=== PATIENT | female | born 1975 | race Caucasian/White ===

== ENCOUNTER 2024-07-01 19:46 | Observation (INO) | payer OTHER, SELFPAY ==
[2024-07-01] VITALS (14 sets, daily range): BP systolic 99–146; BP diastolic 72–84; PULSE 74–92; RESP 12–23; TEMP 36.7; O2SAT 98–100
--- NOTE | ~2024-07-01 | XR_ITS ---
XR chest 2V Ordering provider: Saturnino Plaza MD History: 48 years Female with . chest pressure . Comparison: None. FINDINGS: MEDIASTINUM: The cardiac silhouette is not enlarged. [Tripolar pacemaker is noted. LUNGS: No infiltrates, effusions or pneumothorax. OTHER: No free air under the diaphragm. IMPRESSION: No acute cardiopulmonary pathology. Reviewed, dictated and finalized at location A.
--- OUTSIDE RECORDS SUMMARY | 2024-07-01 19:48 | XMS_ITS | Clinical Summary ---
Author Organization [facility] Address [address] [place] [address] Care Team Providers Care Partner Integration Planner Name Role Phone Sha Ayala MD Primary Care Provider [phone] Allergies Active Allergy Reactions Criticality Noted Date Comments Sulfa Hives Medium 06/14/2024 Medications metroNIDAZOLE (FLAGYL) 500 mg tablet Take 1 tablet (500 mg total) by mouth 2 (two) times a day 14 tablet 06/14/2024 Active Encounters Date Type Department Care Team Description 06/30/[address] [address] Jazmin Floyd, RN 06/25/[address] [address] Jazmin Floyd, RN 06/23/[address] [address] Jazmin Floyd, RN 06/16/2024 Results Follow-Up [facility] Emergency Department [address] [place] [address] Dawn Martínez PA 06/14/2024 2:07 AM CDT - 06/14/2024 10:12 AM CDT Emergency [address] [address] Annabel Slade MD Abbeg, Andrew Paul, Cocaine abuse (HCC) (Primary Dx); Lethargy; Trichomonas vaginalis (TV) infection Discharge Disposition: Discharge to home or self care from Last 3 Months Medical History Medical History Date Comments CHF (congestive heart failure) (HCC) Social History Tobacco Use Types Packs/Day Years Used Date Smoking Tobacco: Every Day Cigarettes Tobacco Cessation:Ready to Q uit: Not Asked; Counseling Given: Not Answered Alcohol Use Standard Drinks/Week Comments Yes 0 (1 standard drink = 0.6 oz pur e alcohol) Personal Safety Answer Date Recorded Have you ever been in or are you currently in a harmful physical or emotional relationship or is someone making you feel afraid or unsafe? Denies 06/14/2024 Comments Unknown Sex and Gender Information Value Date Recorded Sex Assigned at Not on file Legal Sex Female 7:25 PM [employer] Gender Identity Not on file Sexual Orientation Not on file Obstetrics History Last Filed Vital Signs Vital Sign Reading Time Taken Comments Blood Pressure 132/92 06/14/2024 9:30 AM CDT Pulse 98 06/14/2024 9:30 AM CDT Temperature 36.5 C (97.7 F) 05/01/2022 6:15 AM [employer] Respiratory Rate 15 06/14/2024 9:30 AM CDT Oxygen Saturation 100% 06/14/2024 9:30 AM CDT Inhaled Oxygen Concentration - - Weight 59 kg (130 lb) 06/14/2024 2:27 AM CDT Height 157.5 cm (5' 2 ) 02/04/2017 8:10 PM [employer] Body Mass Index 23.78 02/04/2017 8:10 PM [employer] Plan of Treatment Health Maintenance Due Date Last Done Comments Breast Cancer Screening-Mammogram 1975 Cervical Cancer Screening 1975 Colon Cancer Screening-Colonoscopy 1975 Depression Screening 1975 Hepatitis C Screening 1975 Regular Well Visit/Exam 18-64 12/05/1993 Pneumococcal vaccine <65 (1 of 2 - PCV) 12/05/1994 Influenza Vaccine (Season Ended) 2024 12/17/19 19, 11/12/2016 DTaP/Tdap/Td Vaccine (2 - Td or Tdap) 12/04/203104/2021 Hepatitis B Screening Completed 03/07/2004 Procedures Procedure Name Priority Date/Time Associated Diagnosis Comments TROPONIN T HIGH-SENSITIVITY 6-HOUR Timed 06/14/2024 8:08 AM CDT VAGINITIS PANEL STAT 06/14/2024 7:30 AM CDT N. GONORRHOEAE/C. TRACHOMATIS AMPLIFICATION STAT 06/14/2024 7:30 AM CDT TROPONIN T HIGH-SENSITIVITY 4-HR Timed 06/14/2024 5:55 AM CDT URINALYSIS, MICROSCOPIC ONLY STAT 06/14/2024 4:47 AM CDT DRUGS OF ABUSE SCREEN, URINE WITHOUT CONFIRMATION STAT 06/14/2024 4:47 AM CDT URINE CULTURE STAT 06/14/2024 4:47 AM CDT URINALYSIS AND REFLEX TO MICROSCOPIC AND CULTURE STAT 06/14/2024 4:47 AM CDT TROPONIN T HIGH-SENSITIVITY 2-HOUR Timed 06/14/2024 4:17 AM CDT XR CHEST 1 VIEW ED 06/14/2024 2:37 AM CDT EGFR STAT 06/14/2024 2:32 AM CDT DIFFERENTIAL AUTO STAT 06/14/2024 2:3 2 AM CDT TROPONIN T HIGH-SENSITIVITY SERIES (BASELINE, 2HR, 4HR, 6HR) STAT 06/14/2024 2:32 AM CDT APTT STAT 06/14/2024 2:32 AM CDT PROTIME-INR STAT 06/14/2024 2:32 AM CDT PRO B-TYPE NATRIURETIC PEPTIDE STAT 06/14/2024 2:32 AM CDT ETHANOL STAT 06/14/2024 2:32 AM CDT COMPREHENSIVE METABOLIC PANEL STAT 06/14/2024 2:32 AM CDT CBC WITH AUTO DIFFERENTIAL STAT 06/14/2024 2:32 AM CDT ECG 12-LEAD STAT 06/14/2024 2:24 AM CDT from Last 3 Months Results * Troponin T high-sensitivity 6-hour (06/14/2024 8:08 AM CDT) Trop T hs 11 <=14 ng/L Comment: Interpretive Data For further hscTnT resources including the diagnostic algorithm and an aid in interpretation, copy and paste this link: https://nrl.testcatalog.org/show/hsTrop Current Interpretive Data last revised 2020. Trop T hs delta -1 ng/L [facility] Trop T hs interp Insignificant [facility] Blood 06/14/2024 8:08 AM CDT 06/14/2024 8:10 AM CDT us Annabel Slade MD LAB BLOOD ORDERABLES F inal Result [facility] [address] [facility] Department [place] [address] * N. gonorrhoeae/C. trachomatis Amplification Vaginal (06/14/2024 7:30 AM CDT) C. trachomatis Not Detected Not Detected N. gonorrhoeae Not Detected Not Detected [facility] Comment: Interpretive Data This assay detects Chlamydia trachomatis and Neisseria gonorrhoeae by nucleic acid amplification testing (NAAT). This assay has been cleared by the [place] Food and Drug administration. The performance characteristics of this test have been verified by the [facility]. The performance characteristics of this test have not been evaluated in individuals less than 14 years of age. Current Interpretive Data last revised 2023. Vaginal (None) 06/14/2024 7: 30 AM CDT 06/14/2024 7:39 AM CDT Franklyn Bains DO LAB MICROBIOLOGY - GENERAL ORDERABLES Final Result [facility] [address] [facility] Department [place] [address] * (ABNORMAL) Vaginitis panel Vaginal (06/14/2024 7:30 AM CDT) Bacterial Vaginosis Detected(A) Not Detected Comment:The BV organism targ ets of this test can be commensal in women; results should be considered in conjunction with clinical presentation to determine the disease status. Rama group Not Detected Not Detected [facility] Rama glabrata/ krusei Not Detected Not Detected [facility] Trichomonas DNA Detected(A) Not Detected [facility] Vaginal 06/14/2024 7:30 AM CDT 06/14/2024 7:39 AM CDT Narrative [facility] - 06/14/2024 8:42 AM CDT The Cepheid Xpert Xpress MVP test detects DNA targets from anaerobic bacteria associated with bacterial vaginosis, Rama species associated with vulvovaginal candidiasis, and Trichomonas vaginalis by nucleic acid amplification testing (NAAT). Results should be interpreted in conjunction with other clinical data. This test cannot be used to assess therapeutic success or failure because target nucleic acids may persist following antimicrobial therapy. This test has been cleared by the [place] Food and Drug Administration to aid in the diagnosis of vaginal infections in symptomatic women ages 14 and older. The performance characteristics of this test have been verified by the [facility]. The Cepheid Xpert Xpress MVP test detects DNA targets from anaerobic bacteria associated with bacterial vaginosis, Rama species associated with vulvovaginal candidiasis, and Trichomonas vaginalis by nucleic acid amplification testing (NAAT). Results should be interpreted in conjunction with other clinical data. This test cannot be used to assess therapeutic success or failure because target nucleic acids may persist following antimicrobial therapy. This test has been cleared by the [place] Food and Drug Administration to aid in the diagnosis of vaginal infections in symptomatic women ages 14 and older. The performance characteristics of this test have been verified by the [facility]. Franklyn Bains DO LAB MICROBIOLOGY - GENERAL ORDERABLES Final Result Performing Organization Address [facility] Co de Phone Number [address] [address] * Troponin T high-sensitivity 4-hour (06/14/2024 5:55 AM CDT) Trop T hs 11 <=14 ng/L Comment: Interpretive Data For further hscTnT resources including the diagnostic algorithm and an aid in interpretation, copy and paste this link: https://nrl.testcatalog.org/show/hsTrop Current Interpretive Data last revised 2020. Trop T hs delta -1 ng/L [facility] Trop T hs interp Insignificant [facility] Blood 06/14/2024 5:55 AM CDT 06/14/2024 5:57 AM CDT Annabel Slade MD LAB BLOOD ORDERABLES F inal Result Performing Organization Address [facility] de Phone Number [address] [address] * (ABNORMAL) Urinalysis reflex to microscopic and culture Urine (06/14/2024 4:47 AM CDT) Color, ur Other(A) Yellow Clarity, ur Turbid(A) Clear [facility] Specific gravity, ur 1.015 1.003 - 1.030 [facility] pH, urine 6.5 [facility] Comment: Interpretive Data U rine pH is affected by diet, medications, systemic acid-base disturbances, and renal tubular function. pH may affect urinary stone formation. For example, urine pH below 6.0 may help reduce the tendency for calcium phosphate stones and pH greater than 6.0 may reduce the tendency for uric acid stone formation. Source: [facility] [employer] Current Interpretive Data was last revised on 2017 Protein, ur ql Negative Negative [facility] Glucose, ur ql Negative Negative [facility] Ketones, ur Negative Negative [facility] Bilirubin, ur Negative Negative [facility] Blood, ur 1+(A) Negative [facility] Urobilinogen, ur <2.0 <2.0 mg/dL [facility] Nitrite, ur Positive(A) Negative [facility] Leukocyte esterase, ur 4+(A) Negative [facility] UA reflex comment Reflex to microscopic UA will be performed. [facility] Urine 06/14/2024 4:47 AM CDT 06/14/2024 5:49 AM CDT Annabel Slade MD LAB MICROBIOLOGY - GEN ERAL ORDERABLES Edited Result - Final [facility] [address] [facility] Department [place] [address] * (ABNORMAL) Drugs of Abuse Screen, Urine without Confirmation (06/14/2024 4:47 AM CDT) Amphetamine, ur Not Detected [facility] 500ng/mL Comment: Interpretive Data - Amphetamines: Samples containing greater than 500 ng/mL d-methamphetamine or other cross-reacting amphetamine compounds are reported as positive. Amphetamine immunoassays are subject to significant false positive rates due to cross-reactivity of non-amphetamine drugs. Confirmatory testing required for definitive results. Current Interpretive Data was last reviewed 2022. Barbiturates, ur Not Detected CutOff 200ng/mL [facility] Comment: Interpretive Data - Barbiturates: Samples containing greater than 200 ng/mL secobarbital or other cross-reacting barbiturate compounds are reported as positive. False positive and false negative results are possible. Confirmatory testing required for definitive results. Current Interpretive Data was last reviewed 2022. Benzodiazepines, ur Not Detected CutOff 100ng/mL [facility] Comment: Interpretive Data - Benzodiazepines: Samples containing greater than 100 ng/mL nordiazepam or other cross-reacting compounds are reported as positive. False positive and false negative results are possible. Confirmatory testing required for definitive results. Current Interpretive Data was last reviewed 2022. Cannabinoids, ur Not Detected CutOff 50 ng/mL [facility] Comment: Interpretive Data - Cannabinoids: Samples containing greater than 50 ng/mL delta-9 THC -COOH or other cross- reacting compounds are reported as positive. False positive and false negative results are possible. Confirmatory testing required for definitive results. Current Interpretive Data was last reviewed 2022. Cocaine, ur Screen Positive, presumptive (A) CutOff 150ng/mL [facility] Comment: Interpretive Data - Cocaine: Samples containing greater than 150 ng/mL benzoylecgonine or other cross- reacting compounds are reported as positive. False positive and false negative results are possible. Confirmatory testing required for definitive results. Current Interpretive Data was last reviewed 2022. Fentanyl, Ur Not Detected CutOff 5 ng/mL [facility] Comment: Interpretive Data - Fentanyl: Samples containing greater than 5 ng/mL norfentanyl, fentanyl, or other cross-reacting fentanyl compounds are reported as positive. False positive and false negative results are possible. Confirmatory testing required for definitive results. Current Interpretive Data was last reviewed 2023. Methadone, ur Not Detected CutOff 300ng/mL [facility] Comment: Interpretive Data - Methadone: Samples containing greater than 300 ng/mL d,l-methadone or other cross-reacting compounds are reported as positive. False positive and false negative results are possible. Confirmatory testing required for definitive results. Current Interpretive Data was last reviewed 2022. Opiates, ur Not Detected CutOff 300ng/mL [facility] Comment: Interpretive Data - Opiates: Samples containing greater than 300 ng/mL morphine or other cross-reacting compounds are reported as positive. False positive and false negative results are possible. Confirmatory testing required for definitive results. Current Interpretive Data was last reviewed 2022. Oxycodone, ur Not Detected CutOff 100ng/mL [facility] Comment: Interpretive Data - Oxycodone: Samples containing greater than 100 ng/mL oxycodone or other cross-reacting compounds are reported as positive. False positive and false negative results are possible. Confirmatory testing required for definitive results. Current Interpretive Data was last reviewed 2022. Phencyclidine, ur Not Detected CutOff 25 ng/mL [facility] Comment: Interpretive Data - Phencyclidine: Samples containing greater than 25 ng/mL phencyclidine or other cross-reacting compounds are reported as positive. False positive and false negative results are possible. Confirmatory testing required for definitive results. Current Interpretive Data was last reviewed 2022. Urine Creatinine 74 mg/dL [facility] Comment: Interpretive Data Urine Creatinine: < 10 mg/dL is extremely dilute = or > 10 but < 20 mg/dL is dilute = or > 20 mg/dL is normal Current Interpretive Data was last revised on 2017. Urine 06/14/2024 4:47 AM CDT 06/14/2024 4:59 AM CDT Narrative [facility] - 06/14/2024 5:50 AM CDT Drug of Abuse screening is performed by immunoassay for medical purposes only. This is not to be used for Pain Management purposes. Annabel Slade MD LAB URINE ORDERABLES F inal Result Performing Organization Address [facility] de Phone Number [address] [place] [address] * (ABNORMAL) Urinalysis, microscopic only (06/14/2024 4:47 AM CDT) WBC, ur >50(A) 0 - 5 /HPF RBC, ur >50(A) 0 - 2 /HPF [facility] Epithelial cells, squamous, ur 6-10(A) 0 - 5 /HPF [facility] Comment:Suggestive of contam ination. Consider recollection by clean catch. Mucous, ur Present(A) [facility] Culture Reflex Comment Reflex to urine culture will be performed. [facility] Urine 06/14/2024 4:47 AM CDT 06/14/2024 5:49 AM CDT Annabel Slade MD LAB URINE ORDERABLES F inal Result Performing Organization Address [facility] de Phone Number [address] [place] [address] * (ABNORMAL) Urine culture Urine (06/14/2024 4:47 AM CDT) Report Final Report: Greater than or equal to 100,000 colonies/mL of Escherichia coli (.) Comment:Testing performed by : [facility], [address] [facility], [place]., [address] Organism ESCHERICHIA COLI [facility] Urine 06/14/2024 4:47 AM CDT 06/14/2024 1:49 PM CDT Narrative [facility] - 06/16/2024 8:37 AM CDT Urine culture reflexed based upon urinalysis results. Testing performed by [facility] ([phone]) Organism Antibiotic Method Susceptibility Escherichia coli Ampicillin INTERPRETATION Resistant Escherichia coli Cefazolin INTERPRETATION Susceptible Escherichia coli Nitrofurantoin INTERPRETATION Susceptible Escherichia coli Gentamicin INTERPRETATION Susceptible Escherichia coli Trimethoprim with Sulfamethoxazole IN TERPRETATION Susceptible Escherichia coli Meropenem INTERPRETATION Susceptible Escherichia coli Cefepime INTERPRETATION Susceptible Escherichia coli Ciprofloxacin INTERPRETATION Susceptible Escherichia coli Ceftazidime INTERPRETATION Susceptible Escherichia coli Ceftriaxone INTERPRETATION Susceptible Escherichia coli Piperacillin/Tazobactam INTERPRETATIO N Susceptible Escherichia coli Cephalexin INTERPRETATION Susceptible Escherichia coli Cefuroxime-axetil INTERPRETATION Susceptible Escherichia coli Cefdinir INTERPRETATION Susceptible us Annabel Slade MD LAB MICROBIOLOGY - GEN ERAL ORDERABLES Final Result Performing Organization Address [facility] de Phone Number [address] [place] [address] * Troponin T high-sensitivity 2-hour (06/14/2024 4:17 AM CDT) Trop T hs See Comment <=14 Comment: Credited due to hemolysis; if immediate recollection is needed, enter an order for a standalone troponin. Do not reorder the troponin series. Hemolyzed Specimen- Called to [id number] Interpretive Data For further hscTnT resources including the diagnostic algorithm and an aid in interpretation, copy and paste this link: https://nrl.testcatalog.org/show/hsTrop Current Interpretive Data last revised 2020. Trop T hs interp See Comment [facility] Comment:Hemolyzed Specimen- Called to [id number] Blood 06/14/2024 4:17 AM CDT 06/14/2024 4:19 AM CDT Annabel Slade MD LAB BLOOD ORDERABLES F inal Result Performing Organization Address [facility] Co de Phone Number [address] Department [place] [address] * XR Chest 1 Vw Portable (06/14/2024 2:37 AM CDT) Anatomical Region Laterality Modality Body, Chest N/A Computed Radiogr aphy 06/14/2024 2:47 AM CDT Narrative 06/14/2024 2:51 AM CDT EXAM DESCRIPTION: XR CHEST 1 VIEW REASON FOR STUDY: Other (type) Nurse brought her in because because she could not stay awake and her pulse felt irregular. EMS states they could palp HR 60's but had a hard time picking it up on the monitor. Patient is on her 2nd pacemaker and was replaced a couple months ago. TECHNIQUE: Portable upright AP view of the chest. COMPARISON: None FINDINGS: LUNGS AND PLEURA: No focal opacity, large effusion, or pneumothorax identified. HEART/MEDIASTINUM: Trachea midline. Cardiac silhouette normal in size. Mediastinal contours appear normal. BONES: Unremarkable. CHEST WALL: Unremarkable. UPPER ABDOMEN: Unremarkable. IMPRESSION: No acute abnormality identified. THIS IS AN ELECTRONICALLY VERIFIED FINAL REPORT 06/14/2024 2:51 AM - Electronically signed by Kaushal Smith M.D. AR T: Report ID: [id number] Reading Location: [id number] Procedure Note Kaushal Smith MD - 06/14/2024 EXAM DESCRIPTION: XR CHEST 1 VIEW REASON FOR STUDY: Other (type) Nurse brought her in because because she could not stay awake and herpulse felt irregular. EMS states they could palp HR 60's but had a hard timepicking it up on the monitor. Patient is on her 2nd pacemaker and was replaced a couple months ago. TECHNIQUE: Portable upright AP view of the chest. COMPARISON: None FINDINGS: LUNGS AND PLEURA: No focal opacity, large effusion, orpneumothorax identified. HEART/MEDIASTINUM: Trachea midline. Cardiac silhouette normal in size. Mediastinal contours appear normal. BONES: Unremarkable. CHEST WALL: Unremarkable. UPPER ABDOMEN: Unremarkable. IMPRESSION: No acute abnormality identified. THIS IS AN ELECTRONICALLY VERIFIED FINAL REPORT 06/14/2024 2:51 AM - Electronically signed by Kaushal Smith M.D. AR T: Report ID: [id number] Reading Location: [id number] us Annabel Slade MD IMG XR PROCEDURES Rosalina l Result * Troponin T high-sensitivity series (baseline, 2hr, 4hr, 6hr) (06/14/2024 2:32 AM CDT) Trop T hs 12 <=14 ng/L Comment: Interpretive Data For further hscTnT resources including the diagnostic algorithm and an aid in interpretation, copy and paste this link: https://nrl.testcatalog.org/show/hsTrop Current Interpretive Data last revised 2020. Blood 06/14/2024 2:32 AM CDT 06/14/2024 2:35 AM CDT us Annabel Slade MD LAB BLOOD ORDERABLES F inal Result [id number] [id number] [facility] [place] [address] * eGFR (06/14/2024 2:32 AM CDT) eGFR 73 >=60 mL/min/1. 73 m2 Comment: Interpretive Data Reference Interval Normal >/= 90 mL/min/1.73m2 Mildly decreased* 60 - 89 mL/min/1.73m2 Mildly to moderately decreased 45 - 59 mL/min/1.73m2 Moderately to severely decreased 30 - 44 mL/min/1.73m2 Severely decreased 15 - 29 mL/min/1.73m2 Kidney Failure < 15 mL/min/1.73m2 *Relative to young adult level Estimated glomerular filtration rate is determined by the 2020 CKD-EPI equation recommended by the National Kidney Foundation (A Unifying Approach to GFR Estimation: Recommendations of the NKF-ASK Task Force on Reassessing the Inclusion of Race in Diagnosing Kidney Disease, JASN 202). The CKD-EPI equation should not be used for patients with unstable renal function and has not been validated in children and those over 70. Current interpretive data was last reviewed 2021. Blood 06/14/2024 2:32 AM CDT 06/14/2024 2:35 AM CDT Annabel Slade MD LAB BLOOD ORDERABLES F inal Result [facility] [address] [facility] [place] [address] * (ABNORMAL) Differential, auto (06/14/2024 2:32 AM CDT) Pathologist [facility] Neutrophil abs 4.84 1.50 - 6.50 K/cumm Imm gran abs 0.02 0.00 - 0.10 K/cumm [facility] Lymphocyte abs 1.89 0.80 - 3.30 K/cumm [facility] Monocyte abs 0.82(H) 0.20 - 0.80 K/cumm [facility] Eosinophil abs 0.24 0.00 - 0.50 K/cumm [facility] Basophil abs 0.09 0.00 - 0.10 K/cumm [facility] Neutrophil pct 61.3 % [facility] Comment: Interpretive Data Percent cell count reference ranges are not reported, since discordance with absolute values may lead to misinterpretation of CBC data. Current Interpretive Data was last revised on 2017. Imm gran pct 0.3 % [facility] Comment: Interpretive Data Percent cell count reference ranges are not reported, since discordance with absolute values may lead to misinterpretation of CBC data. Current Interpretive Data was last revised on 2017. Lymphocyte pct 23.9 % [facility] Comment: Interpretive Data Percent cell count reference ranges are not reported, since discordance with absolute values may lead to misinterpretation of CBC data. Current Interpretive Data was last revised on 2017. Monocyte pct 10.4 % [facility] Comment: Interpretive Data Percent cell count reference ranges are not reported, since discordance with absolute values may lead to misinterpretation of CBC data. Current Interpretive Data was last revised on 2017. Eosinophil pct 3.0 % [facility] Comment: Interpretive Data Percent cell count reference ranges are not reported, since discordance with absolute values may lead to misinterpretation of CBC data. Current Interpretive Data was last revised on 2017. Basophil pct 1.1 % [facility] Comment: Interpretive Data Percent cell count reference ranges are not reported, since discordance with absolute values may lead to misinterpretation of CBC data. Current Interpretive Data was last revised on 2017. Blood 06/14/2024 2:32 AM CDT 06/14/2024 2:36 AM CDT us Annabel Slade MD LAB BLOOD ORDERABLES F inal Result [facility] [address] [facility] [place] [address] * (ABNORMAL) Pro B-type natriuretic peptide (06/14/2024 2:32 AM CDT) NT-proBNP 1,954(H) <=300 pg/mL Comment: Interpretive Comments: A. Dyspnea in Acute Care Setting All Ages: < 300 pg/ml, acute heart failure unlikely. < 50 yrs: 300 - 450 pg/ml, further investigation warranted. > 450 pg/ml, acute heart failure likely. 50 - 74 yrs: 300 - 900 pg/ml, further investigation warranted. > 900 pg/ml, acute heart failure likely . > or = 75 yrs: 450 - 1800 pg/ml, further investigation warranted. > 1800 pg/ml, acute heart failure likely. B. Non-acute Setting < 75 yrs < 125 pg/ml, rules out heart failure. > or = 125 pg/ml, further investigation warranted. > or = 75 yrs < 450 pg/ml, rules out heart failure. > or = 450 pg/ml, further investigation warranted. - Knowledge of each individual patient's NT-proBNP range may be more useful than using similar cut-points for every patient. Please note that marked elevations in NT-proBNP levels may be observed in state other than Left Ventricular Congestive Failure, including: acute coronary syndromes, right heart strain/failure (including pulmonary embolism and cor pulmonale), critical illness, renal failure, as well as advanced age. - References: 1. Sandro ROJAS et.al. Eur Heart J. 2006:27:330-337. 2. Yordan WATKINS, Tomasa COSME. J. AM Liat Cardiol: Cardiovasc Imag. 2009;2: 216- 225. Interpretive Data Last Revised Date: 2017. Blood 06/14/2024 2:32 AM CDT 06/14/2024 2:35 AM CDT us Annabel Slade MD LAB BLOOD ORDERABLES F inal Result Performing Organization Address City/[facility] [place] Co de Phone Number [facility] [address] [place] [address] * (ABNORMAL) CBC with auto differential (06/14/2024 2:32 AM CDT) [facility] WBC 7.90 3.80 - 9.90 K/cumm Hgb 12.9 11.9 - 15.5 g/dL [facility] Hct 41.2 35.6 - 45.5 % [facility] Plt 323 150 - 400 K/cumm [facility] MPV 8.9(L) 9.1 - 12.3 fL [facility] RBC 4.48 3.90 - 5.20 M/cumm [facility] MCV 92.0 81.3 - 96.4 fL [facility] MCH 28.8 27.1 - 33.3 pg [facility] MCHC 31.3(L) 32.3 - 35.7 g/dL [facility] RDW CV 13.4 11.1 - 14.9 % [facility] RDW SD 45.0 35.7 - 48.1 fL [facility] NRBC abs 0.00 0.00 - 0.01 K/cumm [facility] Blood 06/14/2024 2:32 AM CDT 06/14/2024 2:36 AM CDT us Annabel Slade MD LAB BLOOD ORDERABLES F inal Result Performing Organization Address City/[facility]/ZIP Co de Phone Number [facility] [address] [place] [address] * aPTT (06/14/2024 2:32 AM CDT) aPTT 26 22 - 37 sec Comment: Interpretive data aPTT test has not been evaluated for monitoring heparin therapy. The anti-Xa is the preferred test. Current interpretive data was last revised on 2019. Blood 06/14/2024 2:32 AM CDT 06/14/2024 2:36 AM CDT Annabel Slade MD LAB BLOOD ORDERABLES F inal Result Performing Organization Address [facility] de Phone Number [address] [place] [address] * (ABNORMAL) Protime-INR (06/14/2024 2:32 AM CDT) Pathologist [facility] [place] PT 16.2(H) 12.0 - 14.6 sec Comment:Ref Range High INR 1.3(H) 0.9 - 1.2 [facility] Comment: Ref Range High Interpretive data Oral anticoagulant therapeutic ranges: Venous thromboembolism prophylaxis or treatment: 2.0-3.0 CARDIOLOGY Standard range: 2.0-3.0 High-intensity range: 2.5-3.5 Refer to indication-specific guidelines for appropriate target ranges for prosthetic heart valve replacement. Current interpretive data was last revised on 2019. Blood 06/14/2024 2:32 AM CDT 06/14/2024 2:36 AM CDT Annabel Slade MD LAB BLOOD ORDERABLES F inal Result Performing Organization Address [facility] de Phone Number [address]ERR[address] [place] [address] * Ethanol (06/14/2024 2:32 AM CDT) Pathologist [facility] [place] Ethanol <10 <=10 mg/dL Comment: Interpretive Data Legal limit of intoxication > or = 80 mg/dL Levels > or = 400 mg/dL are potentially TOXIC. Current interpretive data was last revised on 2018. Blood 06/14/2024 2:32 AM CDT 06/14/2024 2:35 AM CDT Annabel Slade MD LAB BLOOD ORDERABLES F inal Result [facility] [id number] [facility] [facility] [place] [address] * (ABNORMAL) Comprehensive metabolic panel (06/14/2024 2:32 AM CDT) Pathologist [facility] [place] Sodium 143 135 - 145 mmol/L Potassium, pl 3.4 3.3 - 4.9 mmol/L [facility] Chloride 109 97 - 110 mmol/L [facility] CO2 24 22 - 32 mmol/L [facility] Anion gap 10 2 - 15 mmol/L [facility] BUN 17 6 - 25 mg/dL [facility] Creatinine 0.96 0.60 - 1.10 mg/dL [facility] Glucose 86 70 - 199 mg/dL [facility] Comment: Interpretive Data Fasting glucose >/= 126 mg/dl is diagnostic for diabetes. Fasting is defined as no caloric intake for at least 8 hours. Fasting glucose between 100 mg/dl to 125 mg/dl is diagnostic of prediabetes. In a patient with classic symptoms of hyperglycemia or hyperglycemic crisis, a random glucose >/= 200 mg/dl is diagnostic for diabetes. In the absence of unequivocal hyperglycemia, results should be confirmed by repeat testing. The classification and Diagnosis of Diabetes Diabetes Care 202; 46: S19-S40. Current interpretive data was last revised 2022. Calcium 9.2 8.5 - 10.3 mg/dL [facility] Bilirubin, total 0.2 0.1 - 1.2 mg/dL [facility] Protein, pl 6.4(L) 6.5 - 8.5 g/dL [facility] Albumin 3.7 3.5 - 5.0 g/dL [facility] Alk phos 65 40 - 130 Units/L [facility] ALT 15 7 - 45 Units/L [facility] AST 21 10 - 45 Units/L [facility] Blood 06/14/2024 2:32 AM CDT 06/14/2024 2:35 AM CDT Annabel Slade MD LAB BLOOD ORDERABLES F inal Result [facility] [place] [address] * ECG 12 lead (06/14/2024 2:24 AM CDT) Ventricular Rate EKG/Min 87 BPM [facility] Atrial Rate 87 BPM [facility] NM-Interval (MSEC) 164 ms [facility] QRS-Interval (MSEC) 146 ms [facility] QT-Interval (MSEC) 452 ms [facility] QTc 543 ms [facility] P [place] 64 degrees [facility] R [place] -24 degrees [facility] T [place] 82 degrees [facility] Diagnosis Atrial-sensed ventricular-p aced rhythm Abnormal ECG When compared with ECG of 01-MAY-2022 06:16, Vent. rate has increased BY 17 BPM Confirmed by RICHARD GIFFORD M.D. 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
--- OUTSIDE RECORDS SUMMARY | 2024-07-01 19:48 | XMS_ITS | Data Portability ---
Author Organization ROSIBEL Hilaria ALARCON Address [address] [place] [address] Assessment Encounter Date Assessment Date Assessment LastModified by Organization Details LastModified Time 05/02/2017 05/02/2017 41 y.o. 10wks per Hever. U/S. History of endometriosis and 2 SAB all first trimester. Positive drug screen for opiates, slight anemia. Positive FHT's per doppler at 160's with no audible decels. panel today and pt. discharged back to [facility]. Not available 05/02/2017 12:48:36 Plan of Treatment Reminders Order Date Submit Date Provider Last Modified By Organization Details Last Modified Time Details Appointments None recorded. Lab cf (cystic fibrosis) profile 2017 018 [facility], [address] [place] [address], [address], [place], [address], 8 18:12:44 CBC w/ auto diff 2017 018 [facility], [address] [place] [address], [address], [place], [address], 8 16:51:56 HIV (1+2) Ab screen, serum 2017 018 [facility], [address] [place] [address], [address], [place], [address], 8 07:14:18 HBsAg (hepatitis B surface Ag), confirmatio n, serum 2017 018 [email or web address] [facility], [address], [address], [place], [address], 8 11:24:41 rubella igg Ab screen, serum 2017 018 [facility], [address], [address], [place], [address], 8 15:15:45 varicella-z darnell igg Ab screen, serum 2017 018 [facility], [address], [address], [place], [address], 8 15:15:50 drug screen, 5 drugs, urine 2017 018 [facility], [address], [address], [place], [address], 8 15:31:36 culture, urine 2017 018 [facility], [address], [address], [place], [address], 8 20:11:12 urinalysis, complete 2017 018 [email or web address] [facility], [address] [place], [place] [address], [address], [place], [address], 8 11:24:41 hemoglobin S (hbs), presence, blood 2017 018 [facility], [address] [facility] [address], [address], [place], [address], 8 13:11:36 abo group + rh type, blood 2017 018 [email or web address] [facility], [address] [place], [place] [address], [address], [place], [address], 8 11:24:41 RPR (rapid plasma reagin), quantitativ e, serum 2017 018 [email or web address] [facility], [address], [address], [place], [address], 8 11:24:41 CT + NG + TV, DNA, urine/swab 2017 018 [facility] [address], [place], [address], 8 21:08:38 test, urine 2017 018 In-Office Order, Internal Use Only DO Not Attach Compendium DO Not Attach Compendium, Do Not Delete/merge, [id number] 8 11:05:53 Referral None recorded. Procedures None recorded. Surgeries None recorded. Imaging None recorded. Medication Orders None recorded. Patient Targets Encounter Date Encounter Id Patient Goals Patient Target Last Modified By Organization Details Last Modified Time Deliver healthy non addicted term fetus Not available 05/02/2017 12:49:02 Patient Instructions Encounter Date Encounter Id Patient Instructions Last Modified By Organization Details Last Modified Time 05/02/2017 [id number] Pt. instructed t o continue care after release Not available 05/02/2017 12:49:25 Reason for Referral None Reported. Results Created Date Observation Date Name Description Value Unit Range Abnormal Flag Note LastModifiedBy Organization Detail LastModifiedTime 05/03/19 18 05/02/2017 pregn saeid test, urine HCG positi ve Not Available In-Office Order Internal Use Only DO Not Attach Compendium DO Not Attach Compendium, Do Not Delete/merge, [id number] 05/02/2017 10:23:12 05/03/19 18 05/02/2017 drug scree n, urine urine phencylclind in NEGATI VE negati ve Not Available [facility] ([facility]) [address], [place], [address], 05/02/2017 15:31:36 05/03/19 18 05/02/2017 drug scree n, urine urine cannabinoids NEGATI VE negati ve Not Available [facility] (Lab) [address] [place], [address], 05/02/2017 15:31:36 05/03/19 18 05/02/2017 drug scree n, urine urine amphetamines NEGATI VE negati ve Not Available [facility] (Lab) [address] [place], [address], 05/02/2017 15:31:36 05/03/19 18 05/02/2017 drug scree n, urine urine cocaine NEGATI VE negati ve Not Available [facility] (Lab) [address] [place], [address], 05/02/2017 15:31:36 05/03/19 18 05/02/2017 drug scree n, urine urine opiates NEGATI VE negati ve Not Available [facility] (Lab) [address] [facility], [place], [address], 05/02/2017 15:31:36 05/03/19 18 05/02/2017 drug scree n, urine urine barbiturates NEGATI VE negati ve Not Available [facility] (Lab) [address] [place], [address], 05/02/2017 15:31:36 05/03/19 18 05/02/2017 drug scree n, urine urine benzo diazepin NEGATI VE negati ve Not Available [facility] (Lab) [address] [place], [address], 05/02/2017 15:31:36 05/03/19 18 05/02/2017 drug scree n, urine udrscom This test provi cortney only a scree sujatha steven tical test resul t. A more speci fic alter avelino chemi antoine metho d must be order ed to obtai n a confi rmed steven tical resul t. Not Available [facility] (Lab) [address] [place], [address], 05/02/2017 15:31:36 05/03/19 18 05/02/2017 abo group + rh type, blood ABO/Rh typing O Rh Positi ve Not Available [facility] (Lab) [address], [place], [address], 05/02/2017 15:43:26 05/03/19 18 05/02/2017 abo group + rh type, blood id-mts antbdy screen NEGATI VE Not Available [facility] (Lab) [address] [facility], [place], [address], 05/02/2017 15:43:26 05/03/19 18 05/02/2017 urina lysis , compl ete urhead1 URINAL YSIS, COMPLE TE Ur inalys is Gross Exam Not Available [facility] (Lab) [address] [facility], [place], [address], 05/02/2017 16:17:01 05/03/19 18 05/02/2017 urina lysis , compl ete specific gravity 1.010 1.001- 1.035 Not Available [facility] (Lab) [address] [facility], [place], [address], 05/02/2017 16:17:01 05/03/19 18 05/02/2017 urina lysis , compl ete pH 7.0 5.0-7. 0 Not Available [facility] (Lab) [address], [place], [address], 05/02/2017 16:17:01 05/03/19 18 05/02/2017 urina lysis , compl ete urine-color LT. YELLOW yellow abnormal Not Available [facility] (Lab) [address], [place], [address], 05/02/2017 16:17:01 05/03/19 18 05/02/2017 urina lysis , compl ete appearance CLEAR clear Not Available [facility] (Lab) [address] [place], [address], 05/02/2017 16:17:05/03/19 18 05/02/2017 urina lysis , compl ete WBC esterase SMALL uL negati ve abnormal Not Available [facility] (Lab) [address], [place], [address], 05/02/2017 16:17:01 05/03/19 18 05/02/2017 urina lysis , compl ete protein NEGATI VE mg/dL negati ve Not Available [facility] (Lab) [address], [place], [address], 05/02/2017 16:17:05/03/19 18 05/02/2017 urina lysis , compl ete glucose NEGATI VE mg/dL negati ve Not Available [facility] (Lab) [address], [place], [address], 05/02/2017 16:17:01 05/03/19 18 05/02/2017 urina lysis , compl ete ketones NEGATI VE mg/dL negati ve Not Available [facility] (Lab) [address], [place], [address], 05/02/2017 16:17:01 05/03/19 18 05/02/2017 urina lysis , compl ete occult blood NEGATI VE julius/u L negati ve Not Available [facility] (Lab) [address], [place], [address], 05/02/2017 16:17:01 05/03/19 18 05/02/2017 urina lysis , compl ete bilirubin NEGATI VE negati ve Not Available [facility] (Lab) [address], [place], [address], 05/02/2017 16:17:05/03/19 18 05/02/2017 urina lysis , compl ete urobilinogen 0.2 eu/dL <=1.0 Not Available [facility] (Lab) [address] [place], [address], 05/02/2017 16:17:01 05/03/19 18 05/02/2017 urina lysis , compl ete nitrite, urine NEGATI VE negati ve Not Available [facility] ([facility]) [address], [place], [address], 05/02/2017 16:17:01 05/03/19 18 05/02/2017 urina lysis , compl ete urhead2 Mi crosco pic Examin ation* Not Available [facility] (Lab) [address], [place], [address], 05/02/2017 16:17:01 05/03/19 18 05/02/2017 urina lysis , compl ete WBC 3-5 hpf Not Available [facility] ([facility]) [address], [place], [address], 05/02/2017 16:17:01 05/03/19 18 05/02/2017 urina lysis , compl ete RBC NONE SEEN Not Available [facility] ([facility]) [address], [place], [address], 05/02/2017 16:17:01 05/03/19 18 05/02/2017 urina lysis , compl ete epithelial cells 1+ epth/ hpf Not Available [facility] (Lab) [address], [place], [address], 05/02/2017 16:17:01 05/03/19 18 05/02/2017 urina lysis , compl ete bacteria 1+ Not Available [facility] (Lab) [address], [place], [address], 05/02/2017 16:17:01 05/03/19 18 05/02/2017 urina lysis , compl ete urine amorphous 4+ uramo r/hpf Not Available [facility] (Lab) [address], [place], [address], 05/02/2017 16:17:01 05/03/19 18 05/02/2017 CBC w/ auto diff WBC 10.9 K/uL 3.4-10 .8 high Not Available [facility] (Lab) [address] [place], [address], 05/02/2017 16:51:56 05/03/19 18 05/02/2017 CBC w/ auto diff red blood count 4.6 M/uL 4.2-5. 4 Not Available [facility] (Lab) [address] [place], [address], 05/02/2017 16:51:56 05/03/19 18 05/02/2017 CBC w/ auto diff hemoglobin 13.3 g/dL 11.5-[address] [facility] (Lab) [address] [place], [address], 05/02/2017 16:51:56 05/03/19 18 05/02/2017 CBC w/ auto diff hematocrit 39.7 % 36.0-4 8.0 Not Available [facility] (Lab) [address] [place], [address], 05/02/2017 16:51:56 05/03/19 18 05/02/2017 CBC w/ auto diff MCV 87 fL 80-[address] [facility] (Lab) [address] [place], [address], 05/02/2017 16:51:56 05/03/19 18 05/02/2017 CBC w/ auto diff MCH 29 pg 27-32 Not Available [facility] (Lab) [address] [place], [address], 05/02/2017 16:51:56 05/03/19 18 05/02/2017 CBC w/ auto diff MCHC 34 g/dL 32-36 Not Available [facility] (Lab) [address] [place], [address], 05/02/2017 16:51:56 05/03/19 18 05/02/2017 CBC w/ auto diff platelets 415 K/uL 155-37 9 high Not Available [facility] (Lab) [address] [facility], [place], [address], 05/02/2017 16:51:56 05/03/19 18 05/02/2017 CBC w/ auto diff RDW 16.0 % 11.5-1 4.5 high Not Available [facility] (Lab) [address] [place], [address], 05/02/2017 16:51:56 05/03/19 18 05/02/2017 CBC w/ auto diff MPV 9.5 fL 8.9-12 .7 Not Available [facility] (Lab) [address] [place], [address], 05/02/2017 16:51:56 05/03/19 18 05/02/2017 CBC w/ auto diff neutrophils absolute 8.3 K/uL 1.4-7. 0 high Not Available [facility] (Lab) [address] [place], [address], 05/02/2017 16:51:56 05/03/19 18 05/02/2017 CBC w/ auto diff lymphs (absolute) 1.4 K/uL 0.7-3. 1 Not Available [facility] (Lab) [address] [facility], [place], [address], 05/02/2017 16:51:56 05/03/19 18 05/02/2017 CBC w/ auto diff monocytes (absolute) 1.0 K/uL 0.1-0. 9 high Not Available [facility] (Lab) [address] [place], [address], 05/02/2017 16:51:56 05/03/19 18 05/02/2017 CBC w/ auto diff eos (absolute) 0.1 K/uL 0.0-0. 4 Not Available [facility] (Lab) [address] [place], [address], 05/02/2017 16:51:56 05/03/19 18 05/02/2017 CBC w/ auto diff baso (absolute) 0.0 K/uL 0.1-0. 3 low Not Available [facility] (Lab) [address] [place], [address], 05/02/2017 16:51:56 05/03/19 18 05/02/2017 CBC w/ auto diff neut % 76.2 % 40.0-7 4.0 high Not Available [facility] (Lab) [address] [place], [address], 05/02/2017 16:51:56 05/03/19 18 05/02/2017 CBC w/ auto diff lymphs % 12.8 % 14.0-4 6.0 low Not Available [facility] (Lab) [address] [place], [address], 05/02/2017 16:51:56 05/03/19 18 05/02/2017 CBC w/ auto diff mono % 9.4 % 4.0-12 .0 Not Available [facility] (Lab) [address] [place], [address], 05/02/2017 16:51:56 05/03/19 18 05/02/2017 CBC w/ auto diff eos % 1 % <=5 Not Available [facility] (Lab) [address] [place], [address], 05/02/2017 16:51:56 05/03/19 18 05/02/2017 CBC w/ auto diff baso % 0.3 % 0.1-1. 1 Not Available [facility] (Lab) [address] [place], [address], 05/02/2017 16:51:56 05/03/19 18 05/03/2017 HIV (1+2) Ab scree n, serum HIV 4TH generation Non Reacti ve non reacti ve Not Available [facility] (Lab) [address] [place], [address], 05/03/2017 07:14:18 05/03/19 18 05/03/2017 hemog lobin S (hbs) , prese nce, blood hemoglobin solubility Negati ve negati ve Since a varie ty of condi tions and other abnor mal hemog lobin s in addit ion to Hemog lobin S may give false -posi tive resul ts, posit ramírez Hemog lobin Solub ility tests shoul d be confi rmed by hemog lobin fract ionat ion testi ng. Not Available [facility] (Lab) [address] [place], [address], 05/03/2017 13:11:36 05/03/19 18 05/03/2017 rubel la igg Ab scree n, serum rubella antibodies, IgG 2.08 index immune >0.99 Non-i mmune <0.90 Equiv ocal 0.90 - 0.99 Immun e >0.99 Not Available [facility] (Lab) [address] [facility], [place], [address], 05/03/2017 15:15:45 05/03/19 18 05/03/2017 RPR (rapi d plasm a reagi n), quant itati ve, serum RPR Non Reacti ve non reacti ve Not Available [facility] (Lab) [address] [facility], [place], [address], 05/03/2017 15:15:46 05/03/19 18 05/03/2017 HBsAg (hepa titis B surfa ce Ag), confi rmati on, serum HBsAg screen Negati ve negati ve Not Available [facility] (Lab) [address] [facility], [place], [address], 05/03/2017 15:15:47 05/03/19 18 05/03/2017 varic archana- zoste r igg Ab scree n, serum varicella zoster IgG 1506 index immune >165 Negat ramírez <135 Equiv ocal 135 - 165 Posit ramírez >165 A posit ramírez resul t gener ally indic ates expos ure to the patho gen or admin istra tion of speci fic immun oglob ulins , but it is not indic ation of activ e infec tion or stage of disea se. Not Available [facility] (Lab) [address] [facility], [place], [address], 05/03/2017 15:15:50 05/03/19 18 05/03/2017 cultu re, urine urine culture, routine Final report Not Available [facility] (Lab) [address] [place], [address], 05/03/2017 20:11:11 05/03/19 18 05/03/2017 cultu re, urine result 1 MUG Mixed uroge nital tammy 10,00 0-25, 000 colon y formi ng units per mL Not Available [facility] (Lab) [address] [facility], [place], [address], 05/03/2017 20:11:11 05/03/19 18 05/03/2017 CT + NG + TV, DNA, urine /swab chlamydia by ANITA Negati ve negati ve Not Available [facility] (Lab) [address] [place], [address], 05/03/2017 21:08:38 05/03/19 18 05/03/2017 CT + NG + TV, DNA, urine /swab gonococcus by ANITA Negati ve negati ve Not Available [facility] (Lab) [address] [facility], [place], [address], 05/03/2017 21:08:38 05/03/19 18 05/03/2017 CT + NG + TV, DNA, urine /swab trich vag by ANITA Negati ve negati ve Not Available [facility] (Lab) [address] [facility], [place], [address], 05/03/2017 21:08:38 05/03/19 18 05/07/2017 cf (cyst ic fibro sis) profi le CF, screen Commen t: RESUL TS: Negat ramírez for 32 mutat ions steven zed INTER PRETA TION: This indiv idual is negat ramírez for the mutat ions steven zed. This negat ramírez resul t may need furth er inter preta tion depen ding on the clini antoine indic ation . This resul t reduc es but does not elimi avelino the risk to be a CF evelia er. COMME NTS: The detec tion rate varie s with [place]ni city and is liste d below . The prese nce of an undet ected mutat ion in the CF gene canno t be ruled out. In the absen ce of famil y histo ry, the remai sujatha risk that a perso n with a negat ramírez resul t could have at least one CF mutat ion is liste d in the table . If there is a famil y histo ry of CF, these risk figur es do not apply . As detai led infor toi ortiz this indiv idual 's famil y histo ry would permi t a more accur ate asses sment of this indiv idual 's risk to be a evelia er of cysti c fibro sis, pleas e conta ct [facility]olo [facility] Servi alphonso at [phone] for a flako ed repor t. Mutat ion Detec tion Detec tion rates are based on mutat ion Rates among Ethni c frequ encie s in patie nts affec juan francisco with Group s cysti c fibro sis. Among indiv idual s with an atypi antoine or mild prese ntati on (e.g. conge nital absen ce of the vas defer ens, pancr eatit is) detec tion rates may vary from those provi ded here: Evelia er risk reduc tion when no famil y histo ry Detec tion Ethni city Rate Ashstefan nazi 03/29 to 97% Jewis h Cauca claus 03/28 to 90% (non- Hispa minnie) Afric an-Am tripp n to 69% Hispa minnie to 73% to 55% This inter preta tion is based on the clini antoine and famil y relat ionsh ip infor matdarrion n provi ded and the curre nt under stand ing of the molec ular manolo ics of this condi tion. MUTAT IONS STEVEN ZED: G85E V520F W1282 X 2183A A to G R117H G542X N1303 K 2184d Luly R334W S549N 394de lTT 2789+ 5G to A R347H S549R 621+1 G to T 3120+ 1G to A R347P G551D 711+1 G to T 3659d elC A455E R553X 1078d elT 3849+ 10kbC to T Delta I507 R560T 1717- 1G to A 3876d Luly Delta F508 R1162 X 1898+ 1G to A 3905i nsT METHO DS/LI MITAT IONS: DNA is isola juan francisco from the sampl e and teste d for the 32 CF mutat ions on the [employer]ive [employer] orm (Emily nex). Regio ns of the CFTR gene are ampli fied enzym atica lly and subje cted to a solut ion-p hase multi plex allel e-spe cific prime r exten brianna with subse quent hybri dizat ion to a bead array and fluor escen ce detec tion. Polym orphi sms F508C , I506V and I507V are inclu ded in this panel to rule out false posit ramírez delta F508 homoz ygote s. Refle x testi ng of 5T is inclu ded in the panel for R117H inter preta tion. False posit ramírez or negat ramírez resul ts may occur for reaso ns that inclu de manolo ic varia nts, blood trans fusio ns, bone marro w trans plant ation , tye eous repre senta tion of famil y relat ionsh ips or conta minat ion of a sampl e with mater nal cells . REFER ENCES : 1. Updat es on Evelia er Scree sujatha for Cysti c Fibro sis. (2011 ) Am J Ob Gynec ol 117(4 ):102 8-103 1 2. Calio n, et al. (2004 ) Manolo Med 6:387 -91 3. Mica do et al. (2002 ) Manolo Med 4:379 -391 4. Preco ncept ion and prena herve evelia er scree sujatha for cysti c fibro sis: (2000 )ACOG .[facility] publi catio n Resul ts Relea sed By: Juan selby, Ph.D. , [facility] Repor t Relea sed By: Juan selby, Ph.D. , [facility] Not Available [facility] (Lab) [address] [place], [address], 05/07/2017 18:12:43 05/03/19 18 05/07/2017 cf (cyst ic fibro sis) profi tom pdf . Not Available [facility] (Lab) [address] [place], [address], 05/07/2017 18:12:43 05/03/19 18 05/07/2017 cf (cyst ic fibro sis) profi tom comment: [facility] The assay provi cortney infor matio n inten ded to be used for evelia er scree sujatha in adult s of repro ducti ve age, as an aid in [facility] rn scree sujatha, and as a confi rmato ry test for anoth er medic ally estab lishe d diagn osis in [facility] rns and child chente. The test is not indic ated for use in diagn ostic testi ng, pre-i mplan tatio n scree sujatha, or for any stand -rodrigo e diagn ostic purpo ses witho ut confi rmati on by anoth er medic ally estab lishe d diagn ostic produ ct or proce dure. Not Available [facility] (Lab) [address] [place], [address], 05/07/2017 18:12:43 Result Notes None recorded. Problems Name Problem SNOMED Code Status Onset Date Resolution Date Notes Provider Name and Address Organization Details Recorded Time Endometritis 92699315 Active 2017 ROSIBEL Marte SIVEL 8 10:29:19 Problem Notes None recorded. Medical Equipment None Reported. Allergies Allergen ID Allergen Name Allergen Category Reaction Reaction Severity Criticality Documentation Date Start Date Code Code System Note Provider Name and Address Organization Details Recorded Time 425465 sulfur dioxide medicatio n Not available Not available Not available 05/02/2017 02108 79 RxNorm ROSIBEL Marte SIHSrinivas 8 10:28:46 Medications Name Sig Start Date Stop Date Status Note LastModified by Organization Details LastModified Time citalopram 40 mg tablet active Not Available Not Available Not Available methylphenidate 20 mg tablet active Not Available Not Available Not Available prednisone 20 mg tablet active Not Available Not Available Not Available clonazepam 1 mg tablet active Not Available Not Available Not Available sumatriptan 50 mg tablet active Not Available Not Available Not Available acyclovir 400 mg tablet active Not Available Not Available Not Available citalopram 20 mg tablet active Not Available Not Available Not Available gabapentin 300 mg capsule active Not Available Not Available Not Available zolpidem 10 mg tablet active Not Available Not Available Not Available sertraline 50 mg tablet active Not Available Not Available Not Available dicyclomine 10 mg capsule active Not Available Not Available Not Available Afluria 0411-5461 45 mcg (15 mcg x 3)/0.5 mL intramuscular suspension active Not Available Not Available N ot Available Vitals Date Recorded Body height Body mass index (BMI) Body weight Systolic blood pressure Diastolic blood pressure Provider Name and Address Organization Details Last Updated DateTime 05/02/2017 157.48 cm 22.3 kg/m2 13916.41 g 110 mm[Hg] 80 mm[Hg] Juvenal Carson [facility] 8 10:22:36 Social History Question Answer Notes LastModified by Organizat ion Details LastModified Time Tobacco Smoking Status Never Smoker Juvenal Carson [facility] 05/02/2017 10:29:28 What Was The Date Of Your Most Recent Tobacco Screening? 05/02/2017 Information n ot available 09/25/2018 Sex: Unknown Functional Status None recorded. Mental Status None recorded. Family History Nothing Reported. Medical History No medical history recorded. Gynecological History Statement/Question Response Flow Moderate Frequency of Cycle (Q days) 30 Sexually Active? Y Menses Monthly Y STIs/STDs Y Duration of Flow (days) 7 Sexual Problems? N Age at Menarche 13 LMP Approximate Obstetrics History GPAL:G 3 P 0 0 2 0 Type Value Spontaneous 2 Total 3 Past Encounters Encounter ID Performer Location Encounter Start Date Encounter Closed Date Diagnosis/Indication Diagnosis SNOMED-CT Code Diagnosis ICD10 Code Diagnosis Note [id number] MD Magdy Hernandez [facility] ([employer]MENT REPA[employer]ER) [address] [place] [address] 05/02/2017 10:16:03 05/02/2017 14:01:05 40820017 Z33.1 Normal 4008100 2 Z34.91 Health Concerns Section Related Observation LastModified by Organization Detai ls LastModified Time None Recorded Concern Status LastModified by Organization Details LastModified Time None Recorded Advance Directives Directive None Recorded Payers Encounter Date Sequence Insurance Name Policy Number Policy Wilder Covered Member ID Wilder Member ID Guarantor Name 05/02/2017 1 [facility] Mary Palomino [id number] Mary Palomino Notes Date Note Type Note Provider Name and Address Organization Details Recorded Time 05/02/2017 text/html Here with guard for intake. Was seen at [facility] for c/o pain. history of endometriosis. Denies bleeding. Had established OB care prior to incarceration with Dr Dimas Smith. Calculates that she is about 8 weeks. Plans on being released tomorrow and following up with Dr. Smith. Leigh Ann poole [place] - [place] 05/02/2017 12:50:20 OBGyn Episode No OBEpisode recorded.
--- OUTSIDE RECORDS SUMMARY | 2024-07-01 19:48 | XMS_ITS | Referral Summary ---
Author Organization [facility] Address [address] [place] [address] Care Team Providers Care Course Developer Name Role Phone Sha Ayala MD Primary Care Provider [phone] Encounters Date Type Department Care Team Description 06/30/[address] [address] Jazmin Floyd, RN 06/25/[address] [address] Jazmin Floyd, RN 06/23/[address] [address] Jazmin Floyd, RN 06/16/2024 Results Follow-Up [facility] Emergency Department [address] [place] [address] Dawn Martínez PA 06/14/2024 2:07 AM CDT - 06/14/2024 10:12 AM CDT Emergency [address] [address] ProgrAnnabel lewis MD Abbeg, Andrew Paul, DO Cocaine abuse (HCC) (Primary Dx); Lethargy; Trichomonas vaginalis (TV) infection Discharge Disposition: Discharge to home or self care from Last 3 Months Allergies Active Allergy Reactions Criticality Noted Date Comments Sulfa Hives Medium 06/14/2024 Medications metroNIDAZOLE (FLAGYL) 500 mg tablet Take 1 tablet (500 mg total) by mouth 2 (two) times a day 14 tablet 06/14/2024 Active Social History Tobacco Use Types Packs/Day Years [...] on file 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 Gender Identity Not on file Sexual Orientation Not on file Last Filed Vital Signs Vital Sign Reading Time Taken Comments Blood Pressure 132/92 06/14/2024 9:30 AM CDT Pulse 98 06/14/2024 9:30 AM CDT Temperature 36.5 C (97.7 F) 05/01/2022 6:15 AM 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 Trop T hs delta -1 ng/L [facility] Trop T hs interp Insignificant [facility] Blood 06/14/2024 8:08 AM CDT 06/14/2024 8:10 AM CDT Annabel Slade MD LAB BLOOD ORDERABLES F inal Result Performing Organization Address [facility] Co de Phone Number [address] [employer] [address] * N. gonorrhoeae/C. trachomatis Amplification Vaginal (06/14/2024 7:30 AM CDT) C. trachomatis Not Detected Not Detected N. gonorrhoeae Not Detected Not Detected [facility] Comment: Interpretive Data This assay detects Chlamydia trachomatis and Neisseria gonorrhoeae by nucleic acid amplification testing (NAAT). This assay has been cleared by the [place] Food and Drug administration. The performance characteristics of this test have been verified by the [facility]. The performance characteristics of this test have not been evaluated in individuals less than 14 years of age. Current Interpretive Data last revised 2023. Vaginal (None) 06/14/2024 7: 30 AM CDT 06/14/2024 7:39 AM CDT Franklyn Bains DO LAB MICROBIOLOGY - GENERAL ORDERABLES Final Result Performing Organization Address [facility] Co de Phone Number [address] [place] [address] * (ABNORMAL) Vaginitis panel Vaginal (06/14/2024 7:30 AM CDT) Bacterial Vaginosis Detected(A) Not Detected Comment:The BV organism targ ets of this test can be commensal in women; results should be considered in conjunction with clinical presentation to determine the disease status. Rama group Not Detected Not Detected [facility] Rama glabrata/ krusei Not Detected Not Detected [facility] Trichomonas DNA Detected(A) Not Detected [facility] Vaginal 06/14/2024 7:30 AM CDT 06/14/2024 7:39 AM CDT Narrative [facility] - 06/14/2024 8:42 AM CDT The [employer] Xpert Xpress MVP test detects DNA targets [...] this test have been verified by the [facility]. The Cepheid Xpert Xpress MVP test [...] this test have been verified by the [facility]. Franklyn Bains DO LAB MICROBIOLOGY - GENERAL ORDERABLES Final Result [facility] [address] Department of Laboratories [place], [place] [id number] * Troponin T high-sensitivity 4-hour (06/14/2024 5:55 AM CDT) Trop T hs 11 <=14 ng/L Comment: Interpretive Data For further hscTnT resources including the diagnostic algorithm and an aid in interpretation, copy and paste this link: https://nrl.testcatalog.org/show/hsTrop Current Interpretive Data last revised 2020. Trop T hs delta -1 ng/L [facility] Trop T hs interp Insignificant [facility] Blood 06/14/2024 5:55 AM CDT 06/14/2024 5:57 AM CDT Annabel Slade MD LAB BLOOD ORDERABLES F inal Result [facility] [address] [place] [address] * (ABNORMAL) Urinalysis reflex to microscopic and culture Urine (06/14/2024 4:47 AM CDT) Color, ur Other(A) Yellow Clarity, ur Turbid(A) Clear [facility] Specific gravity, ur 1.015 1.003 - 1.030 [facility] pH, urine 6.5 [facility] Comment: Interpretive Data U rine pH is affected by diet, medications, systemic acid-base disturbances, and renal tubular function. pH may affect urinary stone formation. For example, urine pH below 6.0 may help reduce the tendency for calcium phosphate stones and pH greater than 6.0 may reduce the tendency for uric acid stone formation. Source: [facility] Current Interpretive Data was last revised on 2017 Protein, ur ql Negative Negative [facility] Glucose, ur ql Negative Negative [facility] Ketones, ur Negative Negative [facility] Bilirubin, ur Negative Negative [facility] Blood, ur 1+(A) Negative [facility] Urobilinogen, ur <2.0 <2.0 mg/dL [facility] Nitrite, ur Positive(A) Negative [facility] Leukocyte esterase, ur 4+(A) Negative [facility] UA reflex comment Reflex to microscopic UA will be performed. [facility] Urine 06/14/2024 4:47 AM CDT 06/14/2024 5:49 AM CDT Annabel Slade MD LAB MICROBIOLOGY - GEN ERAL ORDERABLES Edited Result - Final [facility] [address] [place] [address] * (ABNORMAL) Drugs of Abuse Screen, Urine without Confirmation (06/14/2024 4:47 AM CDT) [facility] Amphetamine, ur Not Detected [facility]Off 500ng/mL Comment: Interpretive Data - Amphetamines: Samples containing greater than 500 ng/mL d-methamphetamine or other cross-reacting amphetamine compounds are reported as positive. Amphetamine immunoassays are subject to significant false positive rates due to cross-reactivity of non-amphetamine drugs. Confirmatory testing required for definitive results. Current Interpretive Data was last reviewed 2022. Barbiturates, ur Not Detected CutOff 200ng/mL [facility] Comment: Interpretive Data - Barbiturates: Samples containing greater than 200 ng/mL secobarbital or other cross-reacting barbiturate compounds are reported as positive. False positive and false negative results are possible. Confirmatory testing required for definitive results. Current Interpretive Data was last reviewed 2022. Benzodiazepines, ur Not Detected CutOff 100ng/mL [facility] Comment: Interpretive Data - Benzodiazepines: Samples containing greater than 100 ng/mL nordiazepam or other cross-reacting compounds are reported as positive. False positive and false negative results are possible. Confirmatory testing required for definitive results. Current Interpretive Data was last reviewed 2022. Cannabinoids, ur Not Detected CutOff 50 ng/mL [facility] Comment: Interpretive Data - Cannabinoids: Samples containing greater than 50 ng/mL delta-9 THC -COOH or other cross- reacting compounds are reported as positive. False positive and false negative results are possible. Confirmatory testing required for definitive results. Current Interpretive Data was last reviewed 2022. Cocaine, ur Screen Positive, presumptive (A) CutOff 150ng/mL [facility] Comment: Interpretive Data - Cocaine: Samples containing greater than 150 ng/mL benzoylecgonine or other cross- reacting compounds are reported as positive. False positive and false negative results are possible. Confirmatory testing required for definitive results. Current Interpretive Data was last reviewed 2022. Fentanyl, Ur Not Detected CutOff 5 ng/mL [facility] Comment: Interpretive Data - Fentanyl: Samples containing greater than 5 ng/mL norfentanyl, fentanyl, or other cross-reacting fentanyl compounds are reported as positive. False positive and false negative results are possible. Confirmatory testing required for definitive results. Current Interpretive Data was last reviewed 2023. Methadone, ur Not Detected CutOff 300ng/mL [facility] Comment: Interpretive Data - Methadone: Samples containing greater than 300 ng/mL d,l-methadone or other cross-reacting compounds are reported as positive. False positive and false negative results are possible. Confirmatory testing required for definitive results. Current Interpretive Data was last reviewed 2022. Opiates, ur Not Detected CutOff 300ng/mL [facility] Comment: Interpretive Data - Opiates: Samples containing greater than 300 ng/mL morphine or other cross-reacting compounds are reported as positive. False positive and false negative results are possible. Confirmatory testing required for definitive results. Current Interpretive Data was last reviewed 2022. Oxycodone, ur Not Detected CutOff 100ng/mL [facility] Comment: Interpretive Data - Oxycodone: Samples containing greater than 100 ng/mL oxycodone or other cross-reacting compounds are reported as positive. False positive and false negative results are possible. Confirmatory testing required for definitive results. Current Interpretive Data was last reviewed 2022. Phencyclidine, ur Not Detected CutOff 25 ng/mL [facility] Comment: Interpretive Data - Phencyclidine: Samples containing [...] MD LAB URINE ORDERABLES F inal Result [address] [address] * (ABNORMAL) Urinalysis, microscopic only (06/14/2024 4:47 AM CDT) WBC, ur >50(A) 0 - 5 /HPF RBC, ur >50(A) 0 - 2 /HPF [facility] Epithelial cells, squamous, ur 6-10(A) 0 - 5 /HPF [facility] Comment:Suggestive of contam ination. Consider recollection by clean catch. Mucous, ur Present(A) [facility] Culture Reflex Comment Reflex to urine culture will be performed. [facility] Urine 06/14/2024 4:47 AM CDT 06/14/2024 5:49 AM CDT us Annabel Slade MD LAB URINE ORDERABLES F inal Result [address] [address] * (ABNORMAL) Urine culture Urine (06/14/2024 4:47 AM CDT) Report Final Report: Greater than or equal to 100,000 colonies/mL of Escherichia coli (.) Comment:Testing performed by : [facility], [address] [place]., [address] Organism ESCHERICHIA COLI [facility] Urine 06/14/2024 4:47 AM CDT 06/14/2024 1:49 PM CDT Narrative [facility] - 06/16/2024 8:37 AM CDT Urine culture reflexed based upon urinalysis results. Testing performed by [facility] Microbiology Laboratory ([phone]) Organism Antibiotic Method Susceptibility Escherichia coli Ampicillin [...] INTERPRETATION Susceptible Escherichia coli Cefdinir INTERPRETATION Susceptible Annabel Slade MD LAB MICROBIOLOGY - GEN ERAL ORDERABLES Final Result Performing Organization Address [facility] Co de Phone Number [facility] [address] [place] [address] * Troponin T high-sensitivity 2-hour (06/14/2024 4:17 AM CDT) Trop T hs See Comment <=14 Comment: Credited due to hemolysis; if immediate recollection is needed, enter an order for a standalone troponin. Do not reorder the troponin series. Hemolyzed Specimen- Called to [id number] Interpretive Data For further hscTnT resources including the diagnostic algorithm and an aid in interpretation, copy and paste this link: https://nrl.testcatalog.org/show/hsTrop Current Interpretive Data last revised 2020. Trop T hs interp See Comment [facility] Comment:Hemolyzed Specimen- Called to [id number] Blood 06/14/2024 4:17 AM CDT 06/14/2024 4:19 AM CDT Annabel Slade MD LAB BLOOD ORDERABLES F inal Result Performing Organization Address [facility] Co de Phone Number [facility] [address] Department [place] [address] * XR Chest 1 Vw Portable (06/14/2024 [...] Kaushal Smith M.D. AR T: Report ID: [id number] Reading Location: [id number] Procedure Note Kaushal Smith MD - 06/14/2024 [...] Kaushal Smith M.D. AR T: Report ID: [id number] Reading Location: [id number] Annabel Slade MD IMG XR PROCEDURES Rosalina [...] LAB BLOOD ORDERABLES F inal Result [facility] [address] [employer] [place] [address] * eGFR (06/14/2024 2:32 AM CDT) eGFR [...] of Race in Diagnosing Kidney Disease, JASN 2020). The CKD-EPI equation should not be used for patients with unstable renal function and has not been validated in children and those over 70. Current interpretive data was last reviewed 2021. Blood 06/14/2024 2:32 AM CDT 06/14/2024 2:35 AM CDT us Annabel Slade MD LAB BLOOD ORDERABLES F inal Result Performing Organization Address City/[facility]/ZIP Co de Phone Number [facility] [address] [place] [address] * (ABNORMAL) Differential, auto (06/14/2024 2:32 AM CDT) Neutrophil abs 4.84 1.50 - 6.50 K/cumm Imm gran abs 0.02 0.00 - 0.10 K/cumm [facility] Lymphocyte abs 1.89 0.80 - 3.30 K/cumm [facility] Monocyte abs 0.82(H) 0.20 - 0.80 K/cumm [facility] Eosinophil abs 0.24 0.00 - 0.50 K/cumm [facility] Basophil abs 0.09 0.00 - 0.10 K/cumm [facility] Neutrophil pct 61.3 % [facility] Comment: Interpretive Data Percent cell count reference ranges are not reported, since discordance with absolute values may lead to misinterpretation of CBC data. Current Interpretive Data was last revised on 2017. Imm gran pct 0.3 % [facility] Comment: Interpretive Data Percent cell count reference ranges are not reported, since discordance with absolute values may lead to misinterpretation of CBC data. Current Interpretive Data was last revised on 2017. Lymphocyte pct 23.9 % [facility] Comment: Interpretive Data Percent cell count reference ranges are not reported, since discordance with absolute values may lead to misinterpretation of CBC data. Current Interpretive Data was last revised on 2017. Monocyte pct 10.4 % [facility] Comment: Interpretive Data Percent cell count reference ranges are not reported, since discordance with absolute values may lead to misinterpretation of CBC data. Current Interpretive Data was last revised on 2017. Eosinophil pct 3.0 % [facility] Comment: Interpretive Data Percent cell count reference ranges are not reported, since discordance with absolute values may lead to misinterpretation of CBC data. Current Interpretive Data was last revised on 2017. Basophil pct 1.1 % [facility] Comment: Interpretive Data Percent cell count reference ranges are not reported, since discordance with absolute values may lead to misinterpretation of CBC data. Current Interpretive Data was last revised on 2017. Blood 06/14/2024 2:32 AM CDT 06/14/2024 2:36 AM CDT Annabel Slade MD LAB BLOOD ORDERABLES F inal Result [facility] Department [place] [address] * (ABNORMAL) Pro B-type natriuretic peptide (06/14/2024 [...] et.al. Eur Heart J. 2006:27:330-337. 2. Yordan RW, Tomasa COSME. J. AM Liat Cardiol: Cardiovasc Imag. 2009;2: 216- 225. Interpretive Data Last Revised Date: 2017. Blood 06/14/2024 2:32 AM CDT 06/14/2024 2:35 AM CDT us Annabel Slade MD LAB BLOOD ORDERABLES F inal Result [facility] Department [place] [employer] [place] [address] * (ABNORMAL) CBC with auto differential (06/14/2024 2:32 AM CDT) [facility] WBC 7.90 3.80 - 9.90 K/cumm Hgb 12.9 11.9 - 15.5 g/dL [facility] Hct 41.2 35.6 - 45.5 % [facility] Plt 323 150 - 400 K/cumm [facility] MPV 8.9(L) 9.1 - 12.3 fL [facility] RBC 4.48 3.90 - 5.20 M/cumm [facility] MCV 92.0 81.3 - 96.4 fL [facility] MCH 28.8 27.1 - 33.3 pg [facility] MCHC 31.3(L) 32.3 - 35.7 g/dL [facility] RDW CV 13.4 11.1 - 14.9 % [facility] RDW SD 45.0 35.7 - 48.1 fL [facility] NRBC abs 0.00 0.00 - 0.01 K/cumm [facility] Blood 06/14/2024 2:32 AM CDT 06/14/2024 2:36 AM CDT us Annabel Slade MD LAB BLOOD ORDERABLES F inal Result Performing Organization Address City/[facility]/ZIP Co de Phone Number [address] [place] [address] * aPTT (06/14/2024 2:32 AM CDT) [facility] aPTT 26 22 - 37 sec Comment: Interpretive data aPTT test has not been evaluated for monitoring heparin therapy. The anti-Xa is the preferred test. Current interpretive data was last revised on 2019. Blood 06/14/2024 2:32 AM CDT 06/14/2024 2:36 AM CDT Annabel Slade MD LAB BLOOD ORDERABLES F inal Result Performing Organization Address City/[facility]/ZIP Co de Phone Number [address] [place] [address] * (ABNORMAL) Protime-INR (06/14/2024 2:32 AM CDT) Pathologist [facility] PT 16.2(H) 12.0 - 14.6 sec Comment:Ref Range High INR 1.3(H) 0.9 - 1.2 [facility] Comment: Ref Range High Interpretive data Oral [...] ORDERABLES F inal Result Performing Organization Address [facility] Co de Phone Number [address] [place] [address] * Ethanol (06/14/2024 2:32 AM CDT) Pathologist [...] ORDERABLES F inal Result Performing Organization Address [facility] Co de Phone Number [address] [address] * (ABNORMAL) Comprehensive metabolic panel (06/14/2024 2:32 AM CDT) [facility] Sodium 143 135 - 145 mmol/L Potassium, pl 3.4 3.3 - 4.9 mmol/L [facility] Chloride 109 97 - 110 mmol/L [facility] CO2 24 22 - 32 mmol/L [facility] Anion gap 10 2 - 15 mmol/L [facility] BUN 17 6 - 25 mg/dL [facility] Creatinine 0.96 0.60 - 1.10 mg/dL [facility] Glucose 86 70 - 199 mg/dL [facility] Comment: Interpretive Data Fasting glucose >/= 126 [...] 2022. Calcium 9.2 8.5 - 10.3 mg/dL [facility] Bilirubin, total 0.2 0.1 - 1.2 mg/dL [facility] Protein, pl 6.4(L) 6.5 - 8.5 g/dL [facility] Albumin 3.7 3.5 - 5.0 g/dL [facility] Alk phos 65 40 - 130 Units/L [facility] ALT 15 7 - 45 Units/L [facility] AST 21 10 - 45 Units/L [facility] Blood 06/14/2024 2:32 AM CDT 06/14/2024 2:35 AM CDT Annabel Slade MD LAB BLOOD ORDERABLES F inal Result [facility] [address] Department [place] [address] * ECG 12 lead (06/14/2024 2:24 AM CDT) Ventricular Rate EKG/Min 87 BPM [facility] Atrial Rate 87 BPM [facility] MO-Interval (MSEC) 164 ms [facility] QRS-Interval (MSEC) 146 ms [facility] QT-Interval (MSEC) 452 ms [facility] QTc 543 ms [facility] P [place] 64 degrees [facility] R [place] -24 degrees [facility] T [place] 82 degrees [facility] Diagnosis Atrial-sensed ventricular-p aced rhythm Abnormal ECG When compared with ECG of 01-MAY-2022 06:16, Vent. rate has increased BY 17 BPM Confirmed by RICHARD GIFFORD M.D. 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 [id number] [place] [id number] [facility] Care Teams Course Developer Relationship Specialty Start Date End Date Sha Ayala MD [address] [facility] [address] [place] [address] PCP - General 07/21/20
--- OUTSIDE RECORDS SUMMARY | 2024-07-01 19:48 | XMS_ITS | Encounter Summary ---
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
--- OUTSIDE RECORDS SUMMARY | 2024-07-01 19:48 | XMS_ITS | Encounter Summary ---
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 Macrobid 100mg BID x 5 days * Telephone Encounter - Piotr Perdomo RN - 06/21/2024 9:55 AM CDT ----- Message from SUZANNE Vicente sent at 06/16/2024 11:12 PM CDT ----- Please call the patient regarding her abnormal result. 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
--- OUTSIDE RECORDS SUMMARY | 2024-07-01 19:48 | XMS_ITS | Clinical Summary ---
Author Organization [facility] [employer] Address [address] [place] [address] Care Team Providers Care Residential Carpet Installer Name Role Phone Chinmay Mora MD Primary Care Provider [phone] Source Comments [facility] Affiliates and Associated Physician Practices is amultiple site organization consisting of ambulatory clinics and hospital sitesin [place], [place], [place] and [place]. This disclosure is being madepursuant to the Care Everywhere program and may not contain all information available regarding this patient. Last updated 17.[facility] [employer] Allergies Active Allergy Reactions Criticality Noted Date Comments Losartan Urticaria Medium 01/02/2024 Sulfa Drugs Urticaria 04/10/2008 Medications * Be aware that medications may not be up to date on this document. Alwaysverify current medications with the patient. ferrous sulfate 325 (65 FE) MG tablet Take 325 mg by mouth once daily Active zolpidem (Ambien) 10 MG tablet Take 1 (one) tablet by mouth nightly as needed for Insomnia Active apixaban (Eliquis) 5 MG tablet Take 1 (one) tablet by mouth 2 times daily 60 tablet 01/04/2024 Active lisinopril (Prinivil; Zestril) 2.5 MG tablet Take 1 (one) tablet by mouth once daily for 30 days 30 tablet 05/24/2024 Active metoprolol succinate XL 24hr (Toprol XL) 25 MG tablet Take 1 (one) tablet by mouth once daily for 30 days 30 tablet 05/24/2024 Active spironolactone (Aldactone) 25 MG tablet Take 1 (one) tablet by mouth once daily for 30 days 30 tablet 05/24/2024 Active furosemide (Lasix) 20 MG tablet Take 1 (one) tablet by mouth once daily for 30 days 30 tablet 05/24/2024 Active gabapentin (Neurontin) 300 MG capsule Take 1 (one) capsule by mouth 3 times daily for 30 days 90 capsule 05/24/2024 Active Active Problems Problem Noted Date Diagnosed Date Shortness of breath 05/23/2024 Chest tightness 05/23/2024 Cocaine abuse 05/23/2024 Chest pain, unspecified type 01/02/2024 Essential hypertension 03/31/2019 Biventricular implantable ca rdioverter-defibrillator (ICD) in situ 03/04/2018 Overview (05/22/2024): Medtronic ICD-NETWORK PROFESSIONAL implanted in 2018 for secondary prevention following cardiac arrest Supervision of elderly multigravida, antepartum 10/23/2017 Overview (10/23/2017): Earliest U/S at primary OB is 19 weeks 6 days 9 days off from LMP O Positive, Hep B Negative, HgbA1c 5.0 (06/20), Antibody Screen Neg, HCT/HGB 12.4/39.9, GC Neg, Rubella Immune, RPR NR, HIV Negative CF Neg Chronic hypertension affecting 018 Overview (10/23/2017): Weekly 10 point biophysical profile Serial growth every 3-4 weeks Blood pressure medication if consistently > 150/95 39 week induction of labor, unless earlier delivery is indicated Anxiety 10/23/2017 Overview (10/23/2017): Psychiatrist: Dr Vela--([facility]') prescribes Xanax Depression 10/23/2017 Overview (10/23/2017): [place] depression scale (10/23/2017) 1930--at risk for current major depressive episode Tobacco smoking affecting , antepartum 10/23/2017 Decreased cardiac ejection fraction 10/23/2017 Overview (10/23/2017): Follow-up with Cardiology with repeat maternal echocardiogram Migraine 10/23/2017 Nonischemic cardiomyopathy 11/11/2015 Overview (05/22/2024): Medtronic ICD-NETWORK PROFESSIONAL implanted in 2019 for secondary prevention following cardiac arrest Head injury 08/15/2008 Overview (12/02/2014): Generalized anxiety disorder 01/21/2004 Peripartum cardiomyopathy, 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 Encounters Date Type Department Care Team Description 05/22/2024 8:19 PM CDT - 05/24/2024 12:27 PM CDT Hospital Encounter [facility] - Pulmonary/Telemetry [address] [place] [address] Alex Trujillo MD Patel, Sahil M, MD Berihun, Eyob, MD Hospitalist Discharge Disposition: Home or Self Care 05/22/2024 Travel from Last 3 Months Family History Medical History Relation Name Comments Hypertension Brother 1 Hypertension Brother 2 Hypertension Brother 3 Hypertension Brother 4 Hypertension Father Lupus Father Hypertension Mother Relation Name Status Comments Brother 1 Alive Brother 2 Alive Brother 3 Alive Brother 4 Alive Father Alive Mother Alive Social History Tobacco Use Types Packs/Day Years Used Date Smoking Tobacco: Every Day Cigarettes Smokeless Tobacco: Never Alcohol Use Standard Drinks/Week Comments Yes 0.8 (1 standard drink = 0.6 oz p ure alcohol) occ AUDIT-C Answer Date Recorded Q1: How often do you have a drink containing alc ohol? 2-4 times a month 01/02/2024 Q2: How many drinks containi ng alcohol do you have on a typical day when you are drinking? 1 or 2 01/02/2024 Q3: How often do you have si x or more drinks on one occasion? Less than monthly 01/02/2024 Overall Financial Resource Strain (CARDIA) Answe r Date Recorded How hard is it for you to pa y for the very basics like food, housing, medical care, and heating? Somewhat hard 01/02/2024 Housing Stability Vital Sign Answer Xu e Recorded In the last 12 months, was t here a time when you were not able to pay the mortgage or rent on time? Patient declined 01/02/20 24 Number of Times Moved in the Last Year Not on fi le 01/02/2024 Homeless in the Last Year Not on file 2023 Comments No Sex and Gender Information Value Date Recorded Sex Assigned at Not on file Legal Sex Female 6:35 AM PERSONNEL MONITOR Gender Identity Not on file Sexual Orientation Not on file Last Filed Vital Signs Vital Sign Reading Time Taken Comments Blood Pressure 126/90 05/24/2024 7:58 AM CDT Pulse 83 05/24/2024 7:58 AM CDT Temperature 36.3 C (97.3 F) 05/24/2024 7:58 AM CDT Respiratory Rate 18 05/24/2024 7:58 AM CDT Oxygen Saturation 100% 05/24/2024 7:58 AM CDT Inhaled Oxygen Concentration - - Weight 57 kg (125 lb 9.6 oz) 05/24/2024 3:50 AM CDT Height 154.9 cm (5' 0.98 ) 01/02/2024 6:07 PM CD T Body Mass Index 23.74 01/02/2024 6:07 PM CDT Plan of Treatment Health Maintenance Due Date Last Done Comments COLOGUARD (AGES 45-75) - COL ON CA SCREENING 1975 COLON MONITORING 1975 COLONOSCOPY - COLON CA SCREENING 1975 CT COLONOGRAPHY - COLON CA SCREENING 1975 Colorectal Cancer Screening 1975 FIT - COLON CA SCREENING 1975 FLEX SIG - COLON CA SCREENING 1975 LIPID TESTING 1975 MAMMOGRAM 1975 PAP SMEAR 1975 HIV SCREENING 12/05/1990 DTAP/TDAP/TD VACCINES (1 - Tdap) 12/05/1994 HEPATITIS B VACCINE (1 of 3 - 19+ 3-dose series) 12/05/1994 PNEUMOCOCCAL VACCINE (1 of 2 - PCV) 12/05/1994 COVID-19 VACCINE ( - 2023-2 5 season) 2023 DEPRESSION SCREENING 03/04/2024 INFLUENZA VACCINE (Season Ended) 2024 12/16/2018, 11/12/2016 ZOSTER VACCINE (1 of 2) 12/05/2025 HEPATITIS C SCREENING Completed 12/14/2018 HIB VACCINE Aged Out No longer eligi ble based on patient's age to complete this topic HPV VACCINE Aged Out No longer eligi ble based on patient's age to complete this topic MENINGOCOCCAL (Group B) VACCINE SHARED DECISION-MAKING Aged Out No longer eligible based on patient's age to complete this topic MENINGOCOCCAL GROUPS A/C/Y/W VACCINE Aged Out No longer eligible b ased on patient's age to complete this topic Procedures Procedure Name Priority Date/Time Associated Diagnosis Comments EKG 12-LEAD STAT 05/28/2024 11:54 AM CDT Shortness of breath CARDIAC EKG ORDER 05/26/2024 4:3 9 PM CDT CARDIAC RHYTHM STRIP ORDER 05/26/2024 4:17 PM CDT CBC W AUTO DIFFERENTIAL AM Draw 05/23/2024 4:06 AM CDT Shortness of breath Chest tightness Cocaine abuse PHOSPHORUS BLOOD Routine 05/23/2024 4:06 AM CDT Shortness of breath Chest tightness Cocaine abuse MAGNESIUM BLOOD Routine 05/23/2024 4:06 AM CDT Shortness of breath Chest tightness Cocaine abuse BASIC METABOLIC PANEL (CALCIUM TOTAL) Routine 05/23/2024 4:06 AM CDT Shortness of breath Chest tightness Cocaine abuse SARS-COV-2 (COVID-19) FLU A/B RSV PCR RAPID Routine 05/23/2024 2:56 AM CDT Shortness of breath Chest tightness Cocaine abuse XR CHEST 2VW STAT 05/22/2024 10:15 PM CDT Shortness of breath B-TYPE NATRIURETIC PEPTIDE STAT 05/22/2024 10:00 PM CDT TRIAGE TROPONIN I STAT 05/22/2024 10: 00 PM CDT COMPREHENSIVE METABOLIC PANEL STAT 05/22/2024 10:00 PM CDT CBC W AUTO DIFFERENTIAL STAT 05/22/2024 10:00 PM CDT URINE MICROSCOPIC ONLY REFLEX TO CULTURE STAT 05/22/2024 9:51 PM CDT DRUG SCREEN URINE STAT 05/22/2024 9:5 1 PM CDT URINALYSIS REFLEX MICROSCOPIC REFLEX CULTURE STAT 05/22/2024 9:51 PM CDT CULTURE URINE STAT 05/22/2024 9:51 PM CDT HCG URINE QUALITATIVE - POCT (IP) INTERFACED Routine 05/22/2024 9:45 PM CDT from Last 3 Months Results * CARDIAC EKG ORDER (05/26/2024 4:39 PM CDT) Narrative 05/26/2024 4:39 PM CDT Ordered by an unspecified provider. us Scanned Document CARDIAC SERVICES ORDERABLES Fin al Result * CARDIAC RHYTHM STRIP ORDER (05/26/2024 4:17 PM CDT) Narrative 05/26/2024 4:17 PM CDT Ordered by an unspecified provider. us Scanned Document CARDIAC SERVICES ORDERABLES Stevenson juan francisco Result - Final * CBC W AUTO DIFFERENTIAL (05/23/2024 4:06 AM CDT) Only the most recent of2 resultswithin the time period is included. WBC 7.4 4.0 - 10.7 x10E9/L 05/23/2024 5:08 AM CDT [facility] RBC Count 4.70 3.90 - 5.20 x10E12/L 05/23/2024 5:08 AM CDT [facility] Hemoglobin 13.7 11.9 - 15.8 g/dL 05/23/2024 5:08 AM CDT [facility] Hematocrit 40.7 34.8 - 46.1 % 05/23/2024 5:08 AM CDT [facility] MCV 86.6 80.0 - 98.0 fL 05/23/2024 5:08 AM CDT [facility] MCH 29.1 26.7 - 33.6 pg 05/23/2024 5:08 AM [facility] MCHC 33.7 31.7 - 36.3 g/dL 05/23/2024 5:08 AM [facility] RDW-CV 13.2 11.3 - 14.8 % 05/23/2024 5:08 AM [facility] Platelet Count 356 150 - 420 x10E9/L 05/23/2024 5:08 AM [facility] MPV 9.5 7.8 - 11.4 fL 05/23/2024 5:08 AM [facility] Neutrophil % 66.7 41.0 - 74.0 % 05/23/2024 5:08 AM [facility] Lymphocyte % 22.4 17.0 - 47.0 % 05/23/2024 5:08 AM [facility] Monocyte % 7.6 3.0 - 11.0 % 05/23/2024 5:08 AM [facility] Eosinophil % 1.8 0.0 - 7.0 % 05/23/2024 5:08 AM [facility] Basophil % 1.1 0.0 - 1.6 % 05/23/2024 5:08 AM [facility] Immature Granulocytes % 0.4 0.0 - 1.0 % 05/23/2024 5:08 AM [facility] Neutrophil Absolute 4.92 1.60 - 7.50 x10E9/L 05/23/2024 5:08 AM [facility] Lymphocyte Absolute 1.65 1.00 - 4.40 x10E9/L 05/23/2024 5:08 AM [facility] Monocyte Absolute 0.56 0.15 - 1.00 x10E9/L 05/23/2024 5:08 AM [facility] Eosinophil Absolute 0.13 0.00 - 0.60 x10E9/L 05/23/2024 5:08 AM [facility] Basophil Absolute 0.08 0.00 - 0.13 x10E9/L 05/23/2024 5:08 AM [facility] Blood BLOOD SPECIMEN / Unknown Lab Venipuncture / Unknown 05/23/2024 4:06 AM CDT 05/23/2024 5:03 AM CDT Vincent Wu MD LAB - HEMATOLOGY ORDERABLES Fin al Result Performing Organization Address City/[facility]/ZIP Co de Phone Number [facility] [address] [place] [address] * (ABNORMAL) BASIC METABOLIC PANEL (CALCIUM TOTAL) (05/23/2024 4:06 AM CDT) [facility] Glucose 124(H) 70 - 99 mg/dL 05/23/2024 5:24 AM [facility] Sodium 142 136 - 145 mmol/L 05/23/2024 5:24 AM [facility] Potassium 3.4(L) 3.5 - 5.1 mmol/L 05/23/2024 5:24 AM [facility] Chloride 108(H) 98 - 107 mmol/L 05/23/2024 5:24 AM [facility] CO2 24 22 - 29 mmol/L 05/23/2024 5:24 AM [facility] Calcium 8.8 8.4 - 10.4 mg/dL 05/23/2024 5:24 AM [facility] Anion Gap 10 6 - 16 mmol/L 05/23/2024 5:24 AM [facility] BUN 12 5.3 - 18.7 mg/dL 05/23/2024 5:24 AM [facility] Creatinine 0.80 0.57 - 1.11 mg/dL 05/23/2024 5:24 AM [facility] eGFR by CKD-EPI >90 >=90 mL/min/1.7 3 m2 05/23/2024 5:24 AM [facility] Blood BLOOD SPECIMEN / Unknown Lab Venipuncture / Unknown 05/23/2024 4:06 AM CDT 05/23/2024 5:03 AM CDT Vincent Wu MD LAB - CHEMISTRY ORDERABLES Rosalina l Result Performing Organization Address City/[facility]/ZIP Co de Phone Number [facility] [address] [place] [address] * PHOSPHORUS BLOOD (05/23/2024 4:06 AM CDT) Pathologist [facility] Phosphorus 3.1 2.5 - 4.5 mg/dL 05/23/2024 5:24 AM CDT [facility] Blood BLOOD SPECIMEN / Unknown Lab Venipuncture / Unknown 05/23/2024 4:06 AM CDT 05/23/2024 5:03 AM CDT Vincent Wu MD LAB - CHEMISTRY ORDERABLES Rosalina l Result [facility] [address] [place] [address] * MAGNESIUM BLOOD (05/23/2024 4:06 AM CDT) [facility] Magnesium 1.9 1.6 - 2.6 mg/dL 05/23/2024 5:24 AM CDT [facility] Blood BLOOD SPECIMEN / Unknown Lab Venipuncture / Unknown 05/23/2024 4:06 AM CDT 05/23/2024 5:03 AM CDT Vincent Wu MD LAB - CHEMISTRY ORDERABLES Rosalina l Result [facility] [address] [place] [address] * SARS-COV-2 (COVID-19) FLU A/B RSV PCR RAPID (05/23/2024 2:56 AM CDT) [facility] COVID-19 PCR Not detected Not detected 05/24/19 3:37 AM CDT [facility] Influenza A PCR Not detected Not detected 05/23/2024 3:37 AM CDT [facility] Influenza B PCR Not detected Not detected 05/23/2024 3:37 AM CDT [facility] RSV PCR Not detected Not detected 05/23/2024 3:37 AM CDT [facility] Microbiology SPECIMEN FROM NASOPHARYNGEAL STRUCTURE / Unknown Collection / Unknown 05/23/2024 2:56 AM CDT 05/23/2024 2:59 AM CDT Narrative [facility] - 05/23/2024 3:37 AM CDT This nucleic acid amplification assay has been authorized by the Food and Drug administration (FDA) under an Emergency Use Authorization (EUA). This test is only authorized for the duration of time the declaration that circumstances exist justifying the authorization of emergency use of in vitro diagnostic tests for detection of SARS-CoV-2 virus and/or diagnosis of COVID-19 infection under section 564(b)(1) of the Act, 21 U.S.C 360bbb-3 (b)(1), unless the authorization is terminated or revoked sooner. Fact Sheets for this EUA assay are available upon request. us Vincent Wu MD LAB - MICROBIOLOGY ORDERABLES F inal Result [facility] [address] [place], [place] [id number] * XR Chest 2Vw (05/22/2024 10:15 PM CDT) Anatomical Region Laterality Modality Chest Radiographic Xiomara ging 05/23/2024 6:55 AM CDT Impressions 05/23/2024 6:56 AM CDT IMPRESSION: Mild pulmonary vascular congestion and edema . > Interpreting Provider: Jake Duke MD on 05/23/2024 6:56 AM Narrative 05/23/2024 6:56 AM CDT PROCEDURE: XR CHEST 2VW DATE/TIME OF EXAM: 05/22/2024 10:15 PM COMPARISON: 01/02/2024 CLINICAL INFORMATION: None relevant/not provided if blank. Indication: R06.02: Shortness of breath Additional History: FINDINGS: Heart size is stable with a pacemaker in place. There is mild central pulmonary vascular congestion and edema. There is no focal consolidating infiltrate, effusion or pneumothorax. Procedure Note Jake Duke MD - 05/23/2024 PROCEDURE: XR CHEST 2VW DATE/TIME OF EXAM: 05/22/2024 10:15 PM COMPARISON: 01/02/2024 CLINICAL INFORMATION: None relevant/not provided if blank. Indication: R06.02: Shortness of breath Additional History: FINDINGS: Heart size is stable with a pacemaker in place. There is mild central pulmonary vascular congestion and edema. There is no focal consolidating infiltrate, effusion or pneumothorax. IMPRESSION: Mild pulmonary vascular congestion and edema . > Interpreting Provider: Jake Duke MD on 05/23/2024 6:56 AM us Alex Trujillo MD DIAGNOSTIC IMAGING ORDERABLES Ed ited Result - Final * TRIAGE TROPONIN I (05/22/2024 10:00 PM CDT) Troponin I <0.05 <0.05 05/22/2024 10:18 PM CDT [facility] Blood BLOOD SPECIMEN / Unknown Venipuncture / Unknown 05/22/2024 10:00 PM CDT 05/22/2024 10:00 PM CDT us Alex Trujillo MD LAB - CHEMISTRY ORDERABLES Final Result [facility] [address] [place] [address] * (ABNORMAL) B-TYPE NATRIURETIC PEPTIDE (05/22/2024 10:00 PM CDT) Pathologist [facility] BNP 545(H) <=100 pg/mL 05/23/2024 12:[address] [facility] Blood BLOOD SPECIMEN / Unknown Venipuncture / Unknown 05/22/2024 10:00 PM CDT 05/22/2024 10:00 PM CDT us Alex Trujillo MD LAB - CHEMISTRY ORDERABLES Final Result [facility] [address] [place] [address] * (ABNORMAL) COMPREHENSIVE METABOLIC PANEL (05/22/2024 10:00 PM CDT) Glucose 103(H) 70 - 99 mg/dL 05/22/2024 10:15 PM CDT [facility] Sodium 142 128 - 145 mmol/L 05/22/2024 10:15 PM [facility] Potassium 4.2 3.6 - 5.1 mmol/L 05/22/2024 10:15 PM [facility] Chloride 111(H) 98 - 108 mmol/L 05/22/2024 10:15 PM [facility] CO2 24 18 - 33 mmol/L 05/22/2024 10:15 PM [facility] Calcium 9.5 8 - 10.3 mg/dL 05/22/2024 10:15 PM [facility] Anion Gap 7(L) 8 - 16 mmol/L 05/22/2024 10:15 PM [facility] BUN 13 7 - 22 mg/dL 05/22/2024 10:15 PM [facility] Creatinine 0.80 0.60 - 1.20 mg/dL 05/22/2024 10:15 PM [facility] Alkaline Phosphatase 73 42 - 141 U/L 05/22/2024 10:15 PM [facility] ALT 18 10 - 47 U/L 05/22/2024 10:15 PM [facility] AST 33 11 - 38 U/L 05/22/2024 10:15 PM [facility] Protein Total 6.3(L) 6.4 - 8.1 gm/dL 05/22/2024 10:15 PM [facility] Albumin 3.5 3.3 - 5.5 gm/dL 05/22/2024 10:15 PM [facility] Bilirubin Total 0.5 0.2 - 1.6 mg/dL 05/22/2024 10:15 PM [facility] eGFR by CKD-EPI >90 >=90 mL/min/1.7 3 m2 05/22/2024 10:15 PM [facility] Blood BLOOD SPECIMEN / Unknown Venipuncture / Unknown 05/22/2024 10:00 PM CDT 05/22/2024 10:00 PM T us Alex Trujillo MD LAB - CHEMISTRY ORDERABLES Final Result [facility] [address] [place], [place] [address] [phone] * (ABNORMAL) URINE MICROSCOPIC ONLY REFLEX TO CULTURE (05/22/2024 9:51 PM CDT) Reflex Status Culture to follow 05/23/2024 12:07 AM CDT -[facility] RBC UA 3-5 0 - 5 # /hpf 05/23/2024 12:[address] [facility] WBC UA 21-50(A) 0 - 5 # /hpf 05/23/2024 12:[address] [facility] Bacteria UA 1+(A) None Seen 05/23/2024 12:[address] [facility] Squamous Epithelial Cells 3-5 0 - 5 /hpf 05/23/2024 12:[address] [facility] Mucus UA 1+ /LPF 05/23/2024 12:[address] [facility] Urine URINE SPECIMEN OBTAINED BY CLEAN CATCH PROCEDURE / Unknown Collection / Unknown 05/22/2024 9:51 PM CDT 05/22/2024 9:51 PM CDT us Alex Trujillo MD LAB - URINALYSIS ORDERABLES Rosalina smith Result [facility] [address] [place] [address] * (ABNORMAL) URINALYSIS REFLEX MICROSCOPIC REFLEX CULTURE (05/22/2024 9:51 PM CDT) Color UA Yellow Straw, Light Yellow, Yellow, Dark Yellow 05/22/2024 9:57 PM CDT [facility] Clarity UA Cloudy(A) Clear 05/22/2024 9:57 PM CDT [facility] Glucose UA Negative Negative 05/22/2024 9:57 PM CDT [facility] Bilirubin UA Negative Negative 05/22/2024 9:57 PM CDT [facility] Ketone UA Negative Negative 05/22/2024 9:57 PM CDT [facility] Specific [place] UA 1.015 1.005 - 1.030 05/22/2024 9:57 PM CDT [facility] Blood UA Negative Negative 05/22/2024 9:57 PM CDT [facility] pH UA 6.5 5.0 - 8.0 pH 05/22/2024 9:57 PM CDT [facility] Protein UA Trace(A) Negative 05/22/2024 9:57 PM CDT [facility] Urobilinogen UA Negative Negative mg/dL 05/22/2024 9:57 PM CDT [facility] Nitrite UA Positive(A) Negative 05/22/2024 9:57 PM CDT [facility] Leukocyte UA 1+(A) Negative 05/22/2024 9:57 PM CDT [facility] Urine Microscopy Urine microscopy to follow 05/22/2024 9:57 PM CDT [facility] Reflex Status Culture to follow 05/22/2024 9:57 PM CDT [facility] Urine URINE SPECIMEN OBTAINED BY CLEAN CATCH PROCEDURE / Unknown Collection / Unknown 05/22/2024 9:51 PM CDT 05/22/2024 9:51 PM CDT us Alex Trujillo MD LAB - URINALYSIS ORDERABLES Rosalina l Result [facility] [address] [phone] * (ABNORMAL) DRUG SCREEN URINE (05/22/2024 9:51 PM CDT) [facility] Cannabinoids Screen Urine Not detected Not detected 05/22/2024 10:04 PM CDT [facility] Phencyclidine Screen Urine Not detected Not detected 05/22/2024 10:04 PM CDT [facility] Cocaine Screen Urine Detected(A) Not detected 05/22/2024 10:04 PM CDT [facility] Methamphetamine Screen Urine Not detected Not detected 05/22/2024 10:04 PM CDT [facility] Opiate Screen Urine Not detected Not detected 05/22/2024 10:04 PM CDT [facility] Amphetamines Screen Urine Not detected Not detected 05/22/2024 10:04 PM CDT [facility] Benzodiazepines Screen Urine Not detected Not detected 05/22/2024 10:04 PM CDT [facility] Tricyclics Screen Urine Not Detected Not Detected 05/22/2024 10:04 PM CDT [facility] Methadone Screen Urine Not detected Not detected 05/22/2024 10:04 PM CDT [facility] Barbiturates Screen Urine Not detected Not detected 05/22/2024 10:04 PM CDT [facility] Oxycodone Screen Urine Not detected Not detected 05/22/2024 10:04 PM CDT [facility] Urine URINE / Unknown Collection / Unknown 05/22/2024 9:51 PM CDT 05/22/2024 9:51 PM CDT [facility] - 05/22/2024 10:04 PM CDT This drug screen is designed for MEDICAL purposes only. It is not to be used for legal purposes, including but not limited to worker's compensation, police investigations, occupational issues, child custody, etc. Any positive result is only presumptive and must be confirmed with a separate confirmatory test ordered by the physician. Drug Screening Test Cutoff Values: AMPHETAMINES 500 ng/mL BARBITURATES 200 ng/mL BENZODIAZEPINES 150 ng/mL CANNABINOIDS(THC) 50 ng/mL COCAINE 150 ng/mL METHADONE 200 ng/mL METHAMPHETAMINE 500 ng/mL OPIATES 100 ng/mL OXYCODONE 100 ng/mL PHENCYCLIDINE(PCP) 25 ng/mL TRICYCLICS 300 ng/mL us Alex Trujillo MD LAB - URINE CHEMISTRY ORDERABLES Final Result [facility] [address] [phone] * (ABNORMAL) CULTURE URINE (05/22/2024 9:51 PM CDT) [facility] Culture Urine >100,000 CFU/mL Escherichia coli(A) LILLIAN 05/25/2024 2:36 AM CDT [facility] Urine URINE SPECIMEN OBTAINED BY CLEAN CATCH PROCEDURE / Unknown Collection / Unknown 05/22/2024 9:51 PM CDT 05/22/2024 9:51 PM CDT Narrative [facility] - 05/25/2024 2:36 AM CDT Organism Antibiotic Method Susceptibility Escherichia coli Amikacin LILLIAN <=2 ug/mL: Susceptible Escherichia coli Ampicillin LILLIAN >=32 ug/mL: Resistant Escherichia coli Ampicillin-sulbactam LILLIAN >=32 ug/mL: Resistant Escherichia coli Cefazolin LILLIAN <=4 ug/mL: See Comment* Escherichia coli Cefazolin-Urine (uncomplicated infections ONLY) LILLIAN <=4 ug/mL: Susceptible Escherichia coli Cefepime LILLIAN <=1 ug/mL: Susceptible Escherichia coli Ceftriaxone LILLIAN <=1 ug/mL: Susceptible Escherichia coli Ciprofloxacin LILLIAN <=0.25 ug/mL: Susceptible Escherichia coli Gentamicin LILLIAN <=1 ug/mL: Susceptible Escherichia coli Meropenem LILLIAN <=0.25 ug/mL: Susceptible Escherichia coli Nitrofurantoin LILLIAN <=16 ug/mL: Susceptible Escherichia coli Piperacillin-tazobactam LILLIAN <=4 ug/mL: Susceptible Escherichia coli Tobramycin LILLIAN <=1 ug/mL: Susceptible Escherichia coli Trimethoprim-sulfame thoxaz ole LILLIAN <=20 ug/mL: Susceptible Comment: *Cefazolin LILLIAN of </=4 cannot distinguish between susceptible or intermediate for systemic breakpoints. If further defined interpretation is needed, call Microbiology and a disk diffusion test will be performed. Urine breakpoints for cefazolin should only be used when treating uncomplicated UTIs including men and women without urologic abnormality, kidney stones, stents, nephrostomy tubes, signs/symptoms of systemic illness, or pelvic/perineal pain in men. Cefazolin results can be used to predict susceptibility to oral cephalosporins - cephalexin, cefprozil, cefaclor, cefuroxime, cefdinir, and cefpodoxime. For complicated UTIs, use alternative cefazolin susceptibility result above. us Alex Trujillo MD LAB - MICROBIOLOGY ORDERABLES Fi nal Result [facility] [address] [facility] [place] [address], [facility] [phone] * HCG URINE QUALITATIVE - POCT (IP) INTERFACED (05/22/2024 9:45 PM CDT) [facility] Qual Urine Negative Negative 05/22/2024 10:04 PM CDT [facility] Urine URINE / Unknown Collection / Unknown 05/22/2024 9:45 PM CDT 05/22/2024 9:45 PM CDT us Alex Trujillo MD LAB - POINT OF CARE ORDERABLES F inal Result [facility] [address] [place] [address], [facility] [phone] from Last 3 Months Additional Health Concerns Infection Onset Date Last 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 Source: [facility]. 12/15/2018 MDRO Hx Comment:Added from external infection. Source: [facility]. 07/21/2020 Insurance MEDICAID [employer] [place] [facility] MEDICAID - OUT OF STATE [facility] PAYOR Advance Directives * Full Code (Latest Code Status on File) Date Activated Date Inactivated Comments 05/23/2024 2:41 AM 05/24/2024 1:32 PM * Full Code Date Activated Date Inactivated Comments 01/02/2024 2:50 PM 01/04/2024 1:51 PM * Full Code Date Activated Date Inactivated Comments 11/10/2017 7:59 PM 11/16/2017 4:51 PM * Full Code Date Activated Date Inactivated Comments 11/06/2017 4:59 PM 11/10/2017 7:59 PM Care Teams Residential Carpet Installer Relationship Specialty Start Date End Date Chinmay Mora MD [facility] [address] [address] PCP - General Internal Medicine 10/04/17
--- NOTE | 2024-07-01 19:55 | ECG_ITS ---
Test Date: 2024-07-01 20:05:16 Measurements Intervals [place] Rate: 93 P: 34 OK: 162 QRS: 17 QRSD: 117 T: 61 QT: 368 QTc: 459 Interpretive Statements ATRIAL SENSE- ELECTRONIC VENTRICULAR PACEMAKER WITH INHIBITION LEFT BUNDLE BRANCH BLOCK NO FURTHER INTERPRETATION IS POSSIBLE ABNORMAL ECG No previous ECG available for comparison Electronically Signed On 07-01-2024 21:48:38 CDT by Pako Hughes D.O.
[2024-07-01 20:21] LABS: Basophils Absolute Auto 0.1 K/mm3 (0.0-0.1); Basophils Percent Auto 0.7 % (0.2-1.2); Eosinophils Absolute Auto 0.1 K/mm3 (0-0.3); Eosinophils Percent Auto 1.1 % (0-4.4); Hematocrit 44.9 % (37.0-47.0); Hemoglobin 14.4 g/dL (12.0-15.0); Immature Granulocyte Absolute 0.08 K/mm3 (0.00-0.031); Immature Granulocyte Percent A 0.8 % (0-0.5); Lymphocytes Absolute Auto 1.62 K/mm3 (0.9-3.2); Lymphocytes Percent Auto 16.5 % (18.3-44.2); Mean Corpuscular HGB Conc 32.1 g/dl (32-36); Mean Corpuscular Hemoglobin 28.8 pg (26-34); Mean Corpuscular Volume 89.8 fl (80-100); Mean Platelet Volume 8.8 fl (7.4-10.4); Monocytes Absolute Auto 0.8 K/mm3 (0.1-0.6); Monocytes Percent Auto 8.1 % (2.6-8.5); Neutrophils Absolute Auto 7.1 K/mm3 (1.3-6.7); Neutrophils Percent Auto 72.8 % (45.5-73.1); Platelet Count Result 367 k/mm3 (150-375); Red Cell Distribution Width 14.2 % (11.5-14.5); White Blood Count 9.8 K/mm3 (4.5-10.0)
[2024-07-01 20:33] LABS: Alanine Aminotransferase 24 U/L (6-35); Albumin Level 4.2 g/dL (3.5-5.1); Alkaline Phosphatase 59 U/L (38-126); Anion Gap 9 mmol/L (4-12); Aspartate Amino Transferase 23 U/L (14-36); Bilirubin,Total 0.4 mg/dL (0.2-1.3); Blood Urea Nitrogen 25 mg/dL (7-17); Calcium 9.6 mg/dL (8.4-10.2); Carbon Dioxide 23 mmol/L (22-30); Chloride 105 mmol/L (98-107); Estimated CRCL calculation 60 ml/min; Estimated Glomerular Filt Rate > 60; Glucose 94 mg/dL (65-110); Lipase 326 U/L (23-300); Potassium 4.1 mmol/L (3.4-5.0); Sodium 137 mmol/L (137-145)
[2024-07-01 20:34] LABS: INR 0.9; Partial Thromboplastin Time 22.7 Seconds (22.3-36.8); Prothrombin Time 12.5 Seconds (11.1-14.7)
[2024-07-01 20:45] LABS: Troponin I 0.014 ng/mL (0.000-0.034)
--- OUTSIDE RECORDS SUMMARY | 2024-07-01 20:57 | XMS_ITS | Clinical Summary ---
Author Organization [facility] Address [address] [place] [address] Care Team Providers Care Color Shop Helper Name Role Phone Sha Ayala MD Primary Care Provider [phone] Sharon Pace MD Unavailable [phone] Tania Palmer MD Unavailable Allergies Active Allergy Reactions Criticality Noted Date Comments Losartan Other (see comment) 12/23/2015 Loss of Appetite, Weakness and SOB Sulfa Antibiotics Hives 12/16/2018 Aminobenzoate Hives 11/11/2015 Medications EPINEPHrine (EPIPEN 2-EDUAR) 0.3 MG/0.3ML injection Take as directed in an emergency 6 Active acetaminophen 325 MG tablet Take 2 tablets (650 mg total) by mouth every 6 (six) hours as needed for Pain. 30 tablet 8 Active cetirizine 10 MG tablet Take 1 tablet (10 mg total) by mouth daily as needed. 8 Active zolpidem 10 MG tablet Take 1 tablet (10 mg total) by mouth nightly as needed. 1 9 Active clonazePAM 0.5 MG tablet Take 1 tablet (0.5 mg total) by mouth 2 (two) times daily as needed. 1 9 Active methylphenidate 20 MG tablet Take 1 tablet (20 mg total) by mouth 3 (three) times daily. 1 Active gabapentin 600 MG tablet Take 1 tablet (600 mg total) by mouth 3 (three) times daily. 0 Active buPROPion SR 150 MG 12 hr tablet Take 1 tablet (150 mg total) by mouth 2 (two) times daily. 2 Active carvedilol (COREG) 6.25 MG tablet Take 1 tablet (6.25 mg total) by mouth 2 (two) times daily. 180 tablet 1 3 Active lisinopril (PRINIVIL) 40 MG tablet Take 1 tablet (40 mg total) by mouth daily. 90 tablet 1 3 Active furosemide (LASIX) 20 MG tablet TAKE 1 TABLET BY MOUTH EVERY OTHER DAY ALTERNATING WITH 1 TWICE DAILY EVERY OTHER DAY. 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 Essential hypertension 03/31/2019 Cardiac arrest ([facility]) 12/12/2018 LBBB (left bundle branch block) 07/09/2018 Biventricular implantable ca rdioverter-defibrillator (ICD) in situ 03/04/2018 Overview (03/31/2019): Medtronic ICD-LOCKS INSPECTOR implanted in 2019 for secondary prevention following cardiac arrest Chronic systolic heart failure ([facility]) 11/20/2017 Decreased cardiac ejection fraction 10/23/2017 Overview (01/18/2021): Follow-up with Cardiology with repeat maternal echocardiogram Nonischemic cardiomyopathy ([facility]) 11/2015 Overview (05/04/2021): Medtronic ICD-LOCKS INSPECTOR implanted in 2019 for secondary prevention following cardiac arrest Peripartum cardiomyopathy ([facility]) Resolved Problems Problem Noted Date Diagnosed Date Resolved Date Acute respiratory failure ([facility]) 11/18/2017 03/31/2019 Abnormal EKG 10/14/2015 03/31/2019 Encounters Date Type Department Care Team Description 06/22/2024 [facility] [address] Leidy Durand [place] Information from Last 3 Months Immunizations Immunization Administration Dates Next Due Afluria 36 MONTHS+ (Prefilled Syringe IIV4) 12/02 Influenza Adult (Generic) 11/12/2016 Tdap (Boostrix) 12/03/2021 Family History Medical History Relation Comments Hypertension Brother Hypertension Father Hypertension Mother Relation Status Comments Brother Father Mother Social History Tobacco Use Types Packs/Day Years Used Date Smoking Tobacco: Every Day Cigarettes 0.5 20 Smokeless Tobacco: Never Tobacco Cessation:Ready to Q uit: Not Asked; Counseling Given: Not Answered Alcohol Use Standard Drinks/Week Comments Yes 0 (1 standard drink = 0.6 oz pur e alcohol) occ AUDIT-C Answer Date Recorded Frequency of Alcohol Consumption Never 12/12/2018 Average Number of Drinks Not on file 019 Frequency of Binge Drinking Not on file 12/02 Comments No Sex and Gender Information Value Date Recorded Sex Assigned at Not on file Legal Sex Female 9:04 PM CDT Gender Identity Not on file Sexual Orientation Not on file Occupation Industry Job Start Date Job End Date Not on file Not on file Not on file Not on file Last Filed Vital Signs Vital Sign Reading Time Taken Comments Blood Pressure 97/59 05/03/2023 4:30 PM MEDICAL HISTORIAN Pulse 76 05/03/2023 4:30 PM MEDICAL HISTORIAN Temperature 36.1 C (97 F) 05/03/2023 2:54 PM MEDICAL HISTORIAN Respiratory Rate 18 05/03/2023 4:30 PM MEDICAL HISTORIAN Oxygen Saturation 100% 05/03/2023 4:30 PM MEDICAL HISTORIAN Inhaled Oxygen Concentration - - Weight 61.5 kg (135 lb 9.3 oz) 05/03/2023 11:33 AM MEDICAL HISTORIAN Height 154.9 cm (5' 1 ) 05/03/2023 11:33 AM MEDICAL HISTORIAN Body Mass Index 25.62 05/03/2023 11:33 AM MEDICAL HISTORIAN Plan of Treatment Health Maintenance Due Date Last Done Comments Cervical Cancer Screening Pa p Smear (Age 30 to 64) Every 3 Years 1975 Colorectal Cancer Screening Colonoscopy (10 Years) 1975 Annual Physical 12/05/1978 Hepatitis B Vaccines (1 of 3 - 19+ 3-dose series) 12/05/1994 Pneumococcal Vaccine: Pediat rics (0 to 5 Years) and At-Risk Patients (6 to 49 Years) (1 of 2 - PCV) 12/05/1994 Cervical Cancer Screening Pa p with HPV Testing (Age 30 to 64) Every 5 Years 12/05/2005 Cervical Cancer Screening with HPV 12/05/2005 Mammogram Screening 2015 COVID-19 Vaccine ( - 2023-2 5 season) 2023 DTaP, Tdap and Td Vaccines ( 2 - Td or Tdap) 12/04/2031 12/03/2021 Hepatitis C Completed 12/14/2018 Meningococcal B Vaccine Aged Out No l onger eligible based on patient's age to complete this topic Meningococcal Vaccine Aged Out No dina lilliana eligible based on patient's age to complete this topic RSV Immunizations Under 20 Months Aged Out No longer eligible based on patient's age to complete this topic Medical Devices Implanted Type Area Journal Clerk Device Identifier Shelf Expiration Date Model / Serial / Lot Claria Quad Mri Money Room Supervisor-D Icd-Biv-2023 Implanted:Qt y: 1 on 05/03/2023 by Tania Palmer MD ICD Left: Chest [employer] CARDIAC RHYTHM AND HEART FAILURE - DIV M [id number] 05/30/2023 [id number] / [id number] / Rv Lead- 019 Implanted: by Tania Palmer MD (Quantity not on file) Lead Implant Right: Ventricle [employer] CARDIAC RHYTHM AND HEART FAILURE - DIV M 10/07/2020 [id number] / [id number] / Ra Lead- 019 Implanted: by Tania Palmer MD (Quantity not on file) Lead Implant Right: Atrium [employer] CARDIAC RHYTHM AND HEART FAILURE - DIV M 11/02/2020 [id number] / [id number] / Lv Lead- 019 Implanted: by Tania Palmer MD (Quantity not on file) Lead Implant Left: Ventricle [employer] CARDIAC RHYTHM AND HEART FAILURE - DIV M 05/20/2020 [id number] / [id number] / Explanted Type Area Journal Clerk Device Identifier Shelf Expiration Date Model / Serial / Lot Mdt Icd-12/16/2018 Implanted:2018 by Tania Palmer MD (Quantity not on file) Explanted:2023 by Tania Palmer MD (Quantity not on file) ICD [employer] [id number] / [id number] / Procedures Procedure Name Priority Date/Time Associated Diagnosis Comments HEPATITIS PANEL,ACUTE Routine 12/14/2018 12:08 PM CDT from Last 3 Months or Most Recently Relevant to Health Maintenance Results * HEPATITIS PANEL,ACUTE (12/14/2018 12:08 PM CDT) HEPATITIS B SURFACE AG NON-REACTI VE NON-REACTI VE 12/14/2018 6:51 PM CDT [facility] HEP B CORE IGM NON-REACTI VE NON-REACTI VE 12/14/2018 6:51 PM CDT [facility] HAV IGM NON-REACTI VE NON-REACTI VE 12/14/2018 6:51 PM CDT [facility] HEPATITIS C AB NON-REACTI VE NON-REACTI VE 12/14/2018 6:51 PM CDT [facility] 12/14/2018 12:0 8 PM CDT Saw Zamudio MD LABORATORY Final Result [facility] [address] [place] [address], [place] [phone] from Last 3 Months or Most Recently Relevant to Health Maintenance Additional Health Concerns Infection Onset Date Last Indicated MRSA Comment:12/12/18 +MRSA Nasal 12/15/2018 12/15/2018 Insurance [employer] [place] Advance Directives * Full Code (Latest Code Status on File) Date Activated Date Inactivated Comments 12/17/2018 2:54 PM 12/17/2018 11:32 PM * Full Code Date Activated Date Inactivated Comments 12/16/2018 6:04 PM 12/17/2018 2:54 PM * Full Code Date Activated Date Inactivated Comments 12/14/2018 10:15 AM 12/16/2018 6:04 PM * Full Code Date Activated Date Inactivated Comments 12/13/2018 3:13 AM 12/14/2018 10:15 AM * Full Code Date Activated Date Inactivated Comments 11/18/2017 7:22 AM 11/21/2017 4:32 PM Care Teams Color Shop Helper Relationship Specialty Start Date End Date Sha Ayala MD PCP - General INTERNAL MEDICINE 12/22/18 Sharon Pace MD [address] [facility] [place] [address] [place] Apartment Community Assistant Manager CARDIOVASCULAR DISEASE 10/03/15 Tania Palmer MD [address] [place], [place] [id number] EP Apartment Community Assistant Manager CLINICAL CARDIAC ELECTROPHYSIOLOGY 12/26/18
--- OUTSIDE RECORDS SUMMARY | 2024-07-01 20:57 | XMS_ITS | Encounter Summary ---
Author Organization [facility] Address [address] [place] [address] Care Team Providers Care Microstrategy Reports Developer Name Role Phone Chinmay Mora MD Primary Care Provider [phone] Sha Ayala MD Primary Care Provider [phone] Chinmay Mora MD Primary Care Provider [phone] Sha Ayala MD Primary Care Provider [phone]- [phone] Sharon Pace MD Unavailable [phone] Tania Palmer MD Unavailable Encounter Details Date Type Department Care Team (Late st Contact Info) Description 11/01/2015 Abstract [facility] AT [address] [address] [address] [place] Social History Tobacco Use Types Packs/Day Years Used Date Smoking Tobacco: Every Day Cigarettes Alcohol Use Standard Drinks/Week Comments No 0 (1 standard drink = 0.6 oz pur e alcohol) Comments Unknown Sex and Gender Information Value Date Recorded Sex Assigned at Not on file Legal Sex Female 9:04 PM CDT Gender Identity Not on file Sexual Orientation Not on file documented as of this encounter Plan of Treatment Not on file documented as of this encounter Procedures Procedure Name Priority Date/Time Associated Diagnosis Comments CBC (OUTSIDE LAB) Routine 05/14/2015 COMPREHENSIVE METABOLIC PANEL Routine 05/14/2015 CK (CPK) Routine 05/14/2015 documented in this encounter Results * CK (CPK) (05/14/2015) CPK 201 05/14/2015 us Doc [facility] Final Result * COMPREHENSIVE METABOLIC PANEL (05/14/2015) SODIUM S/P/B 138 POTASSIUM S/P/B 4.8 CO2 25 CHLORIDE S/P/B 99 GLUCOSE 82 CALCIUM S/P/B 9.5 BUN 10 CREATININE S/P/B 0.81 EGFR AFR. AMER. >60 EGFR NON-AFR. AMER. >60 ALKALINE PHOSPHATASE S/P/B 70 ALT 14 AST 19 BILIRUBIN TOTAL S/P/B 0.6 ALBUMIN S/P/B 4.6 3.5 - 5.0 TOTAL PROTEIN S/P/B 7.5 GLOBULIN 2.9 05/14/2015 us Doc [facility] Final Result * CBC (OUTSIDE LAB) (05/14/2015) WBC 6.9 HGB 14.5 HCT 43.4 PLT 424 05/14/2015 us Doc [facility] LAB-OUTSIDE/ABSTRACTED Final Result documented in this encounter Visit Diagnoses Not on filedocumented in this encounter Additional Health Concerns Infection Onset Date Last Indicated Resolved Time MRSA Comment:12/12/18 +MRSA Nasal 12/15/2018 12/15/2018 documented as of this encounter Care Teams Microstrategy Reports Developer Relationship Specialty Start Date End Date Chinmay Mora MD PCP - General INTERNAL MEDICINE 10/03/15 07/01/18 Sha Ayala MD PCP - General INTERNAL MEDICINE 07/02/18 12/11/18 Chinmay Mora MD [address] [facility] [address] [place] [address] PCP - General INTERNAL MEDICINE 12/12/18 12/21/18 Sha Ayala MD PCP - General INTERNAL MEDICINE 12/22/18 Sharon Pace MD [address] [facility] [address] [place], [place] [id number] [place] Core Assembly Supervisor CARDIOVASCULAR DISEASE 10/03/15 Tania Palmer MD [address] [facility] [address] [place], [place] [id number] EP Core Assembly Supervisor CLINICAL CARDIAC ELECTROPHYSIOLOGY 12/26/18 documented as of this encounter
--- OUTSIDE RECORDS SUMMARY | 2024-07-01 20:57 | XMS_ITS | Encounter Summary ---
Author Organization [facility] Healthcare Address [address] [place] [address] Care Team Providers Care University Archivist Name Role Phone Sha Ayala MD Primary Care Provider [phone] Encounter Details Date Type Department Care Team (Late st Contact Info) Description 06/16/2024 Results Follow-Up [facility] Emergency Department [address] [place], [place] [id number] Dawn Martínez PA [facility] [place] [address] Social History Tobacco Use Types [...] on file Legal Sex Female 7:25 PM OFFICE MACHINE TECHNICIAN Gender Identity Not on file Sexual Orientation [...] documented as of this encounter Care Teams University Archivist Relationship Specialty Start Date End Date Sha Ayala MD [address] [facility] [address] [place] [address] PCP - General 07/21/20 documented as of this encounter
--- OUTSIDE RECORDS SUMMARY | 2024-07-01 20:57 | XMS_ITS | Encounter Summary ---
Author Organization [facility] Healthcare Address [address] [place] [address] Care Team Providers Care Melter Supervisor Name Role Phone Sha Ayala MD Primary Care Provider [phone] Encounter Details Date Type Department Care Team (Late st Contact Info) Description 06/30/[address] [address] Jazmin Floyd RN Social History Tobacco Use [...] on file Legal Sex Female 7:25 PM CLINICAL SUPPORT NURSE Gender Identity Not on file Sexual Orientation Not on file documented as of this encounter Plan of Treatment Not on file documented as of this encounter Visit Diagnoses Not on filedocumented in this encounter Additional Health Concerns Infection Onset Date Last Indicated Resolved Time 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
--- NOTE | 2024-07-01 20:58 | ED_ITS ---
HPI - Chest Pain General Chief Complaint: Chest Pain Stated Complaint: chest pain Time Seen by Provider: 07/01/24 20:26 History of Present Illness HPI narrative: 48-year-old female with history of cardiomyopathy with an AICD/pacemaker. She has a history of ventricular dysrhythmias and cardiac arrest. Patient presents from local long-term with concerns of chest pressure sensations. She states she has a history of a cardiomyopathy for over 15+ years and for last few weeks while she has been incarcerated has not been having any of her medications. She endorses a chest pressure sensation in the center of her chest radiating towards her right jaw. Denies any shortness a breath, leg swelling, calf cramping sensation. No fever, chills, trauma or injury. She states that this was not precipitated by any events and she was playing cards when this started suddenly. States that feels similar to last time she had a ventricular dysrhythmia and her pacemaker/AICD did not function. She has a service cleaner that she has not seen since she has been incarcerated. Denies any other symptoms this time. Related Data Allergies Allergy/AdvReac Type Severity Reaction Status Date / Time Sulfa (Sulfonamide Allergy Severe HIVES Verified 11/05/17 17:36 Antibiotics) Review of Systems 2 Review of Systems: As reviewed above in HPI Exam 2 Narrative: GENERAL: [Well-appearing, well-nourished, and in no acute distress.] HEAD: [Normocephalic, atraumatic.] EYES: [PERRLA and EOMI.] ENT: Nares clear, no rhinorrhea or epistaxis. Mucous membranes moist. NECK: Supple. CHEST: [Clear to auscultation. No respiratory distress.] HEART: [Regular rate and rhythm]. No murmur heard. [Normal peripheral pulses.] ABDOMEN: [Soft, nondistended], [nontender], [No rigidity or guarding] EXTREMITIES: Normal range of motion. [No edema.] SKIN: Warm, dry, no rash. NEURO: [No focal deficits]. Alert and oriented [x3.] PSYCH: [Normal mood and affect.] Course Vital Signs Vital signs: Vital Signs Temperature 36.7 C 07/01/24 19:53 Pulse Rate 90 07/01/24 19:53 Respiratory Rate 18 07/01/24 19:53 Blood Pressure 146/80 H 07/01/24 19:53 Pulse Oximetry 99 07/01/24 19:53 Oxygen Delivery Room Air 07/01/24 19:53 Temperature 36.7 C 07/01/24 19:53 Pulse Rate 89 07/02/24 00:31 Respiratory Rate 15 07/02/24 00:31 Blood Pressure 143/91 H 07/02/24 00:31 Pulse Oximetry 100 07/02/24 00:31 Oxygen Delivery Room Air 07/01/24 20:32 MDM - Chest Pain MDM Narrative Medical decision making narrative: 48-year-old female with history of cardiomyopathy with reduced ejection fraction. She presents to the emergency department with concerns of chest pressure radiating towards her jaw. She has had cardiomyopathy for over 15 years and her service cleaner have been working this up outpatient previously. She has an AICD/pacemaker for reduced ejection fraction and history of cardiac arrest with ventricular dysrhythmia. Patient states she has a pressure sensation in the center of her chest that was started without any exertion. No associated shortness of breath or leg swelling. She has been out of her medications for several weeks according to her as she was incarcerated. Denies any fever, chills, shortness a breath, nausea, vomiting, abdominal pain, fever, chills, lightheadedness or syncope. She states the last time she had a pressure sensation like this she was having dysrhythmias. Suspicion presently is for angina, ventricular/atrial dysrhythmia, exacerbation of cardiomyopathy, electrolyte imbalances, pneumothorax, pneumonia, less likely thromboembolic event such as PE without any signs of DVT on exam and normal vital signs. Her AICD was interrogated and [employer] [facility] was contacted. He tells me that there were no events recorded recently and otherwise has been functioning appropriately. The report printed out states that there have been no events recorded for last 2 weeks. Cardiac workup ordered including CBC, CMP, troponin, EKG, chest x-ray, EKG, serial troponin, BNP. Workup shows no leukocytosis or anemia. Normal platelet count. Electrolytes are normal. Normal renal function, normal hepatic function. Coags within normal limits. Initial troponin is detectable at 0.014 and 3 hour troponin is undetected. Mildly elevated BNP, mildly elevated lipase. Chest x-ray without any findings. EKG shows ventricular paced rhythm, left bundle branch block but no ST segment elevations or acute depressions. Patient will be admitted to the hospital for further evaluation on observation admission given her high risk chest pain. Spoke to the hospitalist currently being covered by the midlevel provider history who accepted the patient to an IMU bed. Patient was made aware as well as the police officers will remain with her as she is in custody. Medical Records Data Attestation: I reviewed the patient's medical records. Lab Data Attestation: I reviewed the patient's lab results. 07/01/24 20:11 07/01/24 20:11 Labs: Lab Results 07/01/24 07/01/24 07/01/24 Range/Units 20:10 20:11 22:55 WBC 9.8 (4.5-10.0) K/mm3 RBC 5.00 (4.2-5.4) M/mm3 Hgb 14.4 (12.0-15.0) g/dL Hct 44.9 (37.0-47.0) % MCV 89.8 (80-100) fl MCH 28.8 (26-34) pg MCHC 32.1 (32-36) g/dl RDW 14.2 (11.5-14.5) % Plt Count 367 (150-375) k/mm3 MPV 8.8 (7.4-10.4) fl Immature Gran % (Auto) 0.8 H (0-0.5) % Neut % (Auto) 72.8 (45.5-73.1) % Lymph % (Auto) 16.5 L (18.3-44.2) % [place] % (Auto) 8.1 (2.6-8.5) % Eos % (Auto) 1.1 (0-4.4) % Baso % (Auto) 0.7 (0.2-1.2) % Lymph # (Auto) 1.62 (0.9-3.2) K/mm3 [place] # (Auto) 0.8 H (0.1-0.6) K/mm3 Eos # (Auto) 0.1 (0-0.3) K/mm3 Baso # (Auto) 0.1 (0.0-0.1) K/mm3 Abs Immat Gran (auto) 0.08 H (0.00-0.031) K/mm3 Absolute Neuts (auto) 7.1 H (1.3-6.7) K/mm3 Absolute Nucleated RBC 0.000 (0.0-0.012) K/mm3 Nucleated RBC % 0.0 (0.0-0.2) % PT 12.5 (11.1-14.7) Seconds INR 0.9 APTT 22.7 (22.3-36.8) Seconds Sodium 137 (137-145) mmol/L Potassium 4.1 (3.4-5.0) mmol/L Chloride 105 (98-107) mmol/L Carbon Dioxide 23 (22-30) mmol/L Anion Gap 9 (4-12) mmol/L BUN 25 H (7-17) mg/dL Creatinine 0.75 (0.7-1.0) mg/dL Estim Creat Clear Calc 60 ml/min Estimated GFR > 60 (59 - ) Glucose 94 (65-110) mg/dL Calcium 9.6 (8.4-10.2) mg/dL Total Bilirubin 0.4 (0.2-1.3) mg/dL AST 23 (14-36) U/L ALT 24 (6-35) U/L Alkaline Phosphatase 59 (38-126) U/L Troponin I 0.014 < 0.012 (0.000-0.034) ng/mL NT-Pro-B Natriuret Pep 753 H (19.9-100) pg/mL Total Protein 7.0 (6.3-8.2) g/dL Albumin 4.2 (3.5-5.1) g/dL Lipase 326 H (23-300) U/L Imaging Data Attestation: I personally reviewed and interpreted this imaging study as follows: My impression: Impressions Chest X-Ray 07/01/24 20:25 IMPRESSION: No acute cardiopulmonary pathology. ECG Data EKG #1: Attestation: I personally reviewed and interpreted this ECG as follows: ECG completion date: 07/01/24 ECG completion time: 20:05 Prior ECG tracings: not available for review Interpretation: Atrially sensed ventricular paced rhythm, left bundle branch block, no ST segment elevations, acute depressions. No previous EKG for comparison. QTC 459, QRS 117. MO interval 162. 93 beats per minute. Final interpretation ventricular paced rhythm. Discharge Plan Discharge Clinical Impression: Chest pain, History of cardiomyopathy, AICD (automatic cardioverter/defibrillator) present, History of cardiac arrest Patient Disposition: Still a Patient Condition: Stable Time of Disposition: 00:37
--- OUTSIDE RECORDS SUMMARY | 2024-07-01 20:58 | XMS_ITS | Encounter Summary ---
Author Organization [facility] Address [address] [place] [address] Care Team Providers Care License Registration Examiner Name Role Phone Sha Ayala MD Primary Care Provider [phone] Sharon Pace MD Unavailable [phone] Tania Palmer MD Unavailable Encounter Details Date Type Department Care Team (Late st Contact Info) Description 07/21/2020 Abstract [facility] [address] [address] [place] Social History Tobacco Use Types Packs/Day Years Used Date Smoking Tobacco: Every Day Cigarettes 0.5 20 Smokeless Tobacco: Never Alcohol Use Standard Drinks/Week Comments No 0 (1 standard drink = 0.6 oz pur e alcohol) AUDIT-C Answer Date Recorded Frequency of Alcohol Consumption Never 12/12/2018 Average Number of Drinks Not on file 019 Frequency of Binge Drinking Not on file 12/02 Comments Unknown Sex and Gender Information Value Date Recorded Sex Assigned at Not on file Legal Sex Female 9:04 PM CDT Gender Identity Not on file Sexual Orientation Not on file Occupation Industry Job Start Date Job End Date Not on file Not on file Not on file Not on file COVID-19 Exposure Response Date Recorded In the last month, have you been in contact with someone who was confirmed or suspected to have Coronavirus / COVID-19? No / Unsure 07/22/2020 10:38 AM CDT documented as of this encounter Functional Status * RETIRED Are you deaf or do you have serious difficulty hearing Answer Date of Assessment Author Status No 12/12/2018 8:58 PM CDT Activ e * RETIRED Are you blind or do you have serious difficulty seeing, even when wearing glasses? Answer Date of Assessment Author Status No 12/12/2018 8:58 PM CDT Activ e * Do you have serious difficulty walking or climbing stairs? Answer Date of Assessment Author Status No 12/12/2018 8:58 PM Gladys Trotter RN Active * Do you have difficulty dressing or bathing? Answer Date of Assessment Author Status No 12/12/2018 8:58 PM Gladys Trotter RN Active * Because of a physical, mental, or emotional condition, do you have difficulty doing errands alone such as visiting a doctor's office or shopping? Answer Date of Assessment Author Status No 12/12/2018 8:58 PM Gladys Trotter RN Active documented as of this encounter Mental Status * Because of a physical, mental, or emotional condition, do you have serious difficulty concentrating, remembering, or making decisions? Answer Entry Date Author Status No 12/12/2018 8:58 PM Gladys Trotter RN Active documented in this encounter Plan of Treatment Not on file documented as of this encounter Procedures Procedure Name Priority Date/Time Associated Diagnosis Comments CBC (OUTSIDE LAB) Routine 07/21/2020 BASIC METABOLIC PANEL Routine 07/21/2020 THYROXINE, FREE (FT4) Routine 07/21/2020 THYROID STIM HORMONE TSH Routine 07/21/2020 documented in this encounter Results * THYROXINE, FREE (FT4) (07/21/2020) FREE T4 1.17 0.93 - 1.70 07/21/2020 us Doc [facility] Final Result * THYROID STIM HORMONE, TSH (07/21/2020) TSH 0.44 0.27 - 4.20 07/21/2020 us Doc [facility] Final Result * BASIC METABOLIC PANEL (07/21/2020) SODIUM S/P/B 141 POTASSIUM S/P/B 3.8 CO2 24 CHLORIDE S/P/B 105 GLUCOSE 91 mg/dL CALCIUM S/P/B 9.1 BUN 16 CREATININE S/P/B 0.8 0.5 - 1.0 EGFR NON-AFR. AMER. 83 <=90 07/21/2020 us Doc [facility] Final Result * CBC (OUTSIDE LAB) (07/21/2020) WBC 9.7 HGB 13.3 HCT 39.4 PLT 331 07/21/2020 us Doc [facility] LAB-OUTSIDE/ABSTRACTED Final Result documented in this encounter Visit Diagnoses Not on filedocumented in this encounter Additional Health Concerns Infection Onset Date Last Indicated Resolved Time MRSA Comment:12/12/18 +MRSA Nasal 12/15/2018 12/15/2018 documented as of this encounter Care Teams License Registration Examiner Relationship Specialty Start Date End Date Sha Ayala MD PCP - General INTERNAL MEDICINE 12/22/18 Sharon Pace MD [address] [place], [place] [address] [place] Bander Operator CARDIOVASCULAR DISEASE 10/03/15 Tania Palmer MD [address] [place], [place] [id number] EP Bander Operator CLINICAL CARDIAC ELECTROPHYSIOLOGY 12/26/18 documented as of this encounter
--- OUTSIDE RECORDS SUMMARY | 2024-07-01 20:58 | XMS_ITS | Encounter Summary ---
Author Organization [facility] Address [address] [place] [address] Care Team Providers Care Environmental Technical Officer Name Role Phone Sha Ayala MD Primary Care Provider [phone] Sharon Pace MD Unavailable [phone] Tania Palmer MD Unavailable Encounter Details Date Type Department Care Team (Late st Contact Info) Description 04/17/2022 [employer] Message Enc [facility] [address] [employer], [facility] Provider Carelink transmission needed Social History Tobacco Use Types Packs/Day Years [...] file Not on file Not on file documented as of this encounter Functional Status [...] documented as of this encounter Care Teams Environmental Technical Officer Relationship Specialty Start Date End Date Sha Ayala MD PCP - General INTERNAL MEDICINE 12/22/18 Sharon Pace MD [address] [place], [place] [address] [place] Galvanizer CARDIOVASCULAR DISEASE 10/03/15 Tania Palmer MD [address] [place], [place] [address] EP Galvanizer CLINICAL CARDIAC ELECTROPHYSIOLOGY 12/26/18 documented as of this encounter
--- OUTSIDE RECORDS SUMMARY | 2024-07-01 20:58 | XMS_ITS | Encounter Summary ---
Author Organization [facility] [place] Address [address] [place] [address] Care Team Providers Care Franchise Sales Representative Name Role Phone Chinmay Mora MD Primary Care Provider [phone] Sha Ayala MD Primary Care Provider [phone] Sharon Pace MD Unavailable [phone] Tania Palmer MD Unavailable Encounter Details Date Type Department Care Team (Late st Contact Info) Description 12/19/2018 Hospital Follow-up Call Health system Telemetry [address] [place], [place] [id number] Leigh Ann Lacy Social History Tobacco Use Types Packs/Day Years [...] documented as of this encounter Care Teams Franchise Sales Representative Relationship Specialty Start Date End Date Chinmay Mora MD [address] [place] [address] PCP - General INTERNAL MEDICINE 12/12/18 12/21/18 Sha Ayala MD [address] [place] [address] PCP - General INTERNAL MEDICINE 12/22/18 Sharon Pace MD [address] [place] [address] [place] Semi Driver CARDIOVASCULAR DISEASE 10/03/15 Tania Palmer MD [facility]. [id number] [place] [address] EP Semi Driver CLINICAL CARDIAC ELECTROPHYSIOLOGY 12/26/18 documented as of this encounter
--- OUTSIDE RECORDS SUMMARY | 2024-07-01 20:58 | XMS_ITS | Clinical Summary ---
Author Organization [facility] Address [address] [place] [address] Care Team Providers Care Staff Sonographer Name Role Phone Sha Ayala MD Primary Care Provider [phone] Allergies Active Allergy Reactions Criticality Noted Date Comments Sulfa Hives Medium 06/14/2024 Medications metroNIDAZOLE (FLAGYL) 500 mg tablet Take 1 tablet (500 mg total) by mouth 2 (two) times a day 14 tablet 06/14/2024 Active Encounters Date Type Department Care Team Description 06/30/[address] [address] Jazmin Floyd, RN 06/25/[address] [address] Jazmin Floyd, RN 06/23/[address] [address] Jazmin Floyd, RN 06/16/2024 Results Follow-Up [facility] Emergency Department [address] [place] [address] Dawn Martínez PA 06/14/2024 2:07 AM CDT - 06/14/2024 10:12 AM CDT Emergency [address] [address] Annabel Slade MD Abbeg, Andrew Paul, Cocaine [...] on file Legal Sex Female 7:25 PM POOL HAND Gender Identity Not on file Sexual Orientation Not on file Obstetrics History Last Filed Vital Signs Vital Sign Reading Time Taken Comments Blood Pressure 132/92 06/14/2024 9:30 AM CDT Pulse 98 06/14/2024 9:30 AM CDT Temperature 36.5 C (97.7 F) 05/01/2022 6:15 AM POOL HAND Respiratory Rate 15 06/14/2024 9:30 AM CDT Oxygen Saturation 100% 06/14/2024 9:30 AM CDT Inhaled Oxygen Concentration - - Weight 59 kg (130 lb) 06/14/2024 2:27 AM CDT Height 157.5 cm (5' 2 ) 02/04/2017 8:10 PM POOL HAND Body Mass Index 23.78 02/04/2017 8:10 PM POOL HAND Plan of Treatment Health Maintenance Due Date [...] BLOOD ORDERABLES F inal Result ALVARO ERVIN [address] [facility] [place] [address] * N. gonorrhoeae/C. trachomatis Amplification [...] this test have been verified by the [facility]. The performance characteristics of this test have not been evaluated in individuals less than 14 years of age. Current Interpretive Data last revised 2023. Vaginal (None) 06/14/2024 7: 30 AM CDT 06/14/2024 7:39 AM CDT Franklyn Bains DO LAB MICROBIOLOGY - GENERAL ORDERABLES Final Result ALVARO [address] [facility] [place] [address] * (ABNORMAL) Vaginitis panel Vaginal (06/14/2024 7:30 AM CDT) Bacterial Vaginosis Detected(A) Not Detected Comment:The BV organism targ ets of this test can be commensal in women; results should be considered in conjunction with clinical presentation to determine the disease status. Rama group Not Detected Not Detected [facility] Rama glabrata/ krusei Not Detected Not Detected [facility] Trichomonas DNA Detected(A) Not Detected [facility] Vaginal 06/14/2024 7:30 AM CDT 06/14/2024 7:39 AM CDT Narrative [facility] - 06/14/2024 8:42 AM CDT The Cepheid [...] this test have been verified by the [facility]. The Cepheid Xpert Xpress MVP test [...] this test have been verified by the [facility]. Franklyn Bains DO LAB MICROBIOLOGY - GENERAL ORDERABLES Final Result Performing Organization Address [facility] Co de Phone Number [address] [address] * Troponin T high-sensitivity 4-hour (06/14/2024 5:55 AM CDT) Trop T hs 11 <=14 ng/L Comment: Interpretive Data For further hscTnT resources including the diagnostic algorithm and an aid in interpretation, copy and paste this link: https://nrl.testcatalog.org/show/hsTrop Current Interpretive Data last revised 2020. Trop T hs delta -1 ng/L ALVARO Trop T hs interp Insignificant [facility] Blood 06/14/2024 5:55 AM CDT 06/14/2024 5:57 AM CDT Annabel Slade MD LAB BLOOD ORDERABLES F inal Result Performing Organization Address [facility] de Phone Number [address] [address] * (ABNORMAL) Urinalysis reflex to microscopic and culture Urine (06/14/2024 4:47 AM CDT) Color, ur Other(A) Yellow Clarity, ur Turbid(A) Clear [facility] Specific gravity, ur 1.015 1.003 - 1.030 [facility] pH, urine 6.5 [facility] Comment: Interpretive Data U rine pH is affected by diet, medications, systemic acid-base disturbances, and renal tubular function. pH may affect urinary stone formation. For example, urine pH below 6.0 may help reduce the tendency for calcium phosphate stones and pH greater than 6.0 may reduce the tendency for uric acid stone formation. Source: [facility] eziCONEX Current Interpretive Data was last revised on 2017 Protein, ur ql Negative Negative [facility] Glucose, ur ql Negative Negative [facility] Ketones, ur Negative Negative [facility] Bilirubin, ur Negative Negative [facility] Blood, ur 1+(A) Negative [facility] Urobilinogen, ur <2.0 <2.0 mg/dL [facility] Nitrite, ur Positive(A) Negative [facility] Leukocyte esterase, ur 4+(A) Negative [facility] UA reflex comment Reflex to microscopic UA will be performed. [facility] Urine 06/14/2024 4:47 AM CDT 06/14/2024 5:49 AM CDT Annabel Slade MD LAB MICROBIOLOGY - GEN ERAL ORDERABLES Edited Result - Final [facility] [address] [facility] [place] [address] * (ABNORMAL) Drugs of Abuse Screen, Urine [...] 2022. Barbiturates, ur Not Detected CutOff 200ng/mL [facility] Comment: Interpretive Data - Barbiturates: Samples containing greater than 200 ng/mL secobarbital or other cross-reacting barbiturate compounds are reported as positive. False positive and false negative results are possible. Confirmatory testing required for definitive results. Current Interpretive Data was last reviewed 2022. Benzodiazepines, ur Not Detected CutOff 100ng/mL [facility] Comment: Interpretive Data - Benzodiazepines: Samples containing greater than 100 ng/mL nordiazepam or other cross-reacting compounds are reported as positive. False positive and false negative results are possible. Confirmatory testing required for definitive results. Current Interpretive Data was last reviewed 2022. Cannabinoids, ur Not Detected CutOff 50 ng/mL [facility] Comment: Interpretive Data - Cannabinoids: Samples containing greater than 50 ng/mL delta-9 THC -COOH or other cross- reacting compounds are reported as positive. False positive and false negative results are possible. Confirmatory testing required for definitive results. Current Interpretive Data was last reviewed 2022. Cocaine, ur Screen Positive, presumptive (A) CutOff 150ng/mL [facility] Comment: Interpretive Data - Cocaine: Samples containing greater than 150 ng/mL benzoylecgonine or other cross- reacting compounds are reported as positive. False positive and false negative results are possible. Confirmatory testing required for definitive results. Current Interpretive Data was last reviewed 2022. Fentanyl, Ur Not Detected CutOff 5 ng/mL [facility] Comment: Interpretive Data - Fentanyl: Samples containing greater than 5 ng/mL norfentanyl, fentanyl, or other cross-reacting fentanyl compounds are reported as positive. False positive and false negative results are possible. Confirmatory testing required for definitive results. Current Interpretive Data was last reviewed 2023. Methadone, ur Not Detected CutOff 300ng/mL [facility] Comment: Interpretive Data - Methadone: Samples containing greater than 300 ng/mL d,l-methadone or other cross-reacting compounds are reported as positive. False positive and false negative results are possible. Confirmatory testing required for definitive results. Current Interpretive Data was last reviewed 2022. Opiates, ur Not Detected CutOff 300ng/mL [facility] Comment: Interpretive Data - Opiates: Samples containing greater than 300 ng/mL morphine or other cross-reacting compounds are reported as positive. False positive and false negative results are possible. Confirmatory testing required for definitive results. Current Interpretive Data was last reviewed 2022. Oxycodone, ur Not Detected CutOff 100ng/mL [facility] Comment: Interpretive Data - Oxycodone: Samples containing greater than 100 ng/mL oxycodone or other cross-reacting compounds are reported as positive. False positive and false negative results are possible. Confirmatory testing required for definitive results. Current Interpretive Data was last reviewed 2022. Phencyclidine, ur Not Detected CutOff 25 ng/mL [facility] Comment: Interpretive Data - Phencyclidine: Samples containing [...] inal Result Performing Organization Address [facility] de Phone Number [address] [place] [address] * (ABNORMAL) Urinalysis, microscopic only (06/14/2024 4:47 AM CDT) WBC, ur >50(A) 0 - 5 /HPF RBC, ur >50(A) 0 - 2 /HPF [facility] Epithelial cells, squamous, ur 6-10(A) 0 - 5 /HPF [facility] Comment:Suggestive of contam ination. Consider recollection by clean catch. Mucous, ur Present(A) [facility] Culture Reflex Comment Reflex to urine culture will be performed. [facility]O Urine 06/14/2024 4:47 AM CDT 06/14/2024 5:49 AM CDT Annabel Slade MD LAB URINE ORDERABLES F inal Result Performing Organization Address [facility] de Phone Number [address] [place] [address] * (ABNORMAL) Urine culture Urine (06/14/2024 4:47 AM CDT) Report Final Report: Greater than or equal to 100,000 colonies/mL of Escherichia coli (.) Comment:Testing performed by : [facility], [address] [facility] [facility], [place]., [address] Organism ESCHERICHIA COLI [facility] Urine 06/14/2024 4:47 AM CDT 06/14/2024 1:49 PM CDT Narrative ALVARO - 06/16/2024 8:37 AM CDT Urine culture reflexed based upon urinalysis results. Testing performed by [facility] Laboratory ([phone]) Organism Antibiotic Method Susceptibility Escherichia coli Ampicillin [...] Final Result Performing Organization Address [facility] de Phone Number [address] [place] [address] * Troponin T high-sensitivity 2-hour (06/14/2024 4:17 AM CDT) Trop T hs See Comment <=14 Comment: Credited due to hemolysis; if immediate recollection is needed, enter an order for a standalone troponin. Do not reorder the troponin series. Hemolyzed Specimen- Called to [id number] Interpretive Data For further hscTnT resources including the diagnostic algorithm and an aid in interpretation, copy and paste this link: https://nrl.testcatalog.org/show/hsTrop Current Interpretive Data last revised 2020. Trop T hs interp See Comment ALVARO Comment:Hemolyzed Specimen- Called to [id number] Blood 06/14/2024 4:17 AM CDT 06/14/2024 4:19 AM CDT Annabel Slade MD LAB BLOOD ORDERABLES F inal Result Performing Organization Address [facility] Co de Phone Number [address] [place] [address] * XR Chest 1 Vw Portable (06/14/2024 [...] Kaushal Smith M.D. AR T: Report ID: [id number] Reading Location: [id number] Procedure Note Kaushal Smith MD - 06/14/2024 [...] Kaushal Smith M.D. AR T: Report ID: [id number] Reading Location: [id number] us Annabel Slade MD IMG XR PROCEDURES [...] MD LAB BLOOD ORDERABLES F inal Result TERRYDFK [address] [facility] [place] [address] * eGFR (06/14/2024 2:32 AM CDT) eGFR [...] MD LAB BLOOD ORDERABLES F inal Result [facility] [address] [facility] [place] [address] * (ABNORMAL) Differential, auto (06/14/2024 2:32 AM CDT) Pathologist [facility] Neutrophil abs 4.84 1.50 - 6.50 K/cumm Imm gran abs 0.02 0.00 - 0.10 K/cumm [facility] Lymphocyte abs 1.89 0.80 - 3.30 K/cumm [facility] Monocyte abs 0.82(H) 0.20 - 0.80 K/cumm [facility] Eosinophil abs 0.24 0.00 - 0.50 K/cumm [facility] Basophil abs 0.09 0.00 - 0.10 K/cumm [facility] Neutrophil pct 61.3 % [facility] Comment: Interpretive Data Percent cell count reference ranges are not reported, since discordance with absolute values may lead to misinterpretation of CBC data. Current Interpretive Data was last revised on 2017. Imm gran pct 0.3 % [facility] Comment: Interpretive Data Percent cell count reference ranges are not reported, since discordance with absolute values may lead to misinterpretation of CBC data. Current Interpretive Data was last revised on 2017. Lymphocyte pct 23.9 % [facility] Comment: Interpretive Data Percent cell count reference ranges are not reported, since discordance with absolute values may lead to misinterpretation of CBC data. Current Interpretive Data was last revised on 2017. Monocyte pct 10.4 % [facility] Comment: Interpretive Data Percent cell count reference ranges are not reported, since discordance with absolute values may lead to misinterpretation of CBC data. Current Interpretive Data was last revised on 2017. Eosinophil pct 3.0 % [facility] Comment: Interpretive Data Percent cell count reference [...] LAB BLOOD ORDERABLES F inal Result ALVARO [address] [facility] [place] [address] * (ABNORMAL) Pro B-type natriuretic peptide (06/14/2024 [...] ORDERABLES F inal Result Performing Organization Address City/[facility] Co de Phone Number [facility] [address] [place] [address] * (ABNORMAL) CBC with auto differential (06/14/2024 2:32 AM CDT) [facility] WBC 7.90 3.80 - 9.90 K/cumm Hgb 12.9 11.9 - 15.5 g/dL [facility] Hct 41.2 35.6 - 45.5 % [facility] Plt 323 150 - 400 K/cumm [facility] MPV 8.9(L) 9.1 - 12.3 fL [facility] RBC 4.48 3.90 - 5.20 M/cumm [facility] MCV 92.0 81.3 - 96.4 fL [facility] MCH 28.8 27.1 - 33.3 pg [facility] MCHC 31.3(L) 32.3 - 35.7 g/dL [facility] RDW CV 13.4 11.1 - 14.9 % [facility] RDW SD 45.0 35.7 - 48.1 fL [facility] NRBC abs 0.00 0.00 - 0.01 K/cumm [facility] Blood 06/14/2024 2:32 AM CDT 06/14/2024 2:36 AM CDT us Annabel Slade MD LAB BLOOD ORDERABLES F inal Result Performing Organization Address City/[facility]/ZIP Co de Phone Number ALVARO [address] [place] [address] * aPTT (06/14/2024 2:32 AM CDT) aPTT 26 22 - 37 sec Comment: Interpretive data aPTT test has not been evaluated for monitoring heparin therapy. The anti-Xa is the preferred test. Current interpretive data was last revised on 2019. Blood 06/14/2024 2:32 AM CDT 06/14/2024 2:36 AM CDT Annabel Slade MD LAB BLOOD ORDERABLES F inal Result Performing Organization Address [facility] de Phone Number [address] [address] * (ABNORMAL) Protime-INR (06/14/2024 2:32 AM CDT) [...] inal Result Performing Organization Address [facility] de Phone Number [address] [place] [address] * Ethanol (06/14/2024 2:32 AM CDT) Pathologist [facility] [place] Ethanol <10 <=10 mg/dL Comment: Interpretive Data Legal limit of intoxication > or = 80 mg/dL Levels > or = 400 mg/dL are potentially TOXIC. Current interpretive data was last revised on 2018. Blood 06/14/2024 2:32 AM CDT 06/14/2024 2:35 AM CDT Annabel Slade MD LAB BLOOD ORDERABLES F inal Result [facility] [address] [facility] [place] [address] * (ABNORMAL) Comprehensive metabolic panel (06/14/2024 2:32 AM CDT) Pathologist [facility] Sodium 143 135 - 145 mmol/L Potassium, pl 3.4 3.3 - 4.9 mmol/L [facility] Chloride 109 97 - 110 mmol/L [facility] CO2 24 22 - 32 mmol/L [facility] Anion gap 10 2 - 15 mmol/L [facility] BUN 17 6 - 25 mg/dL [facility] Creatinine 0.96 0.60 - 1.10 mg/dL [facility] Glucose 86 70 - 199 mg/dL [facility] Comment: Interpretive Data Fasting glucose >/= 126 [...] 2022. Calcium 9.2 8.5 - 10.3 mg/dL [facility] Bilirubin, total 0.2 0.1 - 1.2 mg/dL [facility] Protein, pl 6.4(L) 6.5 - 8.5 g/dL [facility] Albumin 3.7 3.5 - 5.0 g/dL [facility] Alk phos 65 40 - 130 Units/L [facility] ALT 15 7 - 45 Units/L [facility] AST 21 10 - 45 Units/L [facility] Blood 06/14/2024 2:32 AM CDT 06/14/2024 2:35 AM CDT Annabel Slade MD LAB BLOOD ORDERABLES F inal Result ALVARO [facility] [place] [address] * ECG 12 lead (06/14/2024 2:24 AM CDT) Ventricular Rate EKG/Min 87 BPM [facility] Atrial Rate 87 BPM [facility] AK-Interval (MSEC) 164 ms [facility] QRS-Interval (MSEC) 146 ms [facility] QT-Interval (MSEC) 452 ms [facility] QTc 543 ms [facility] P Skippers 64 degrees [facility] R Skippers -24 degrees [facility] T Skippers 82 degrees [facility] Diagnosis Atrial-sensed ventricular-p aced rhythm Abnormal ECG When compared with ECG of 01-MAY-2022 06:16, Vent. rate has increased BY 17 BPM Confirmed by RICHARD GIFFORD M.D. 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 Care Teams Staff Sonographer Relationship Specialty Start Date End Date Sha Ayala MD [address] [facility] [address] [place] [address] PCP - General 07/21/20
--- OUTSIDE RECORDS SUMMARY | 2024-07-01 20:58 | XMS_ITS | Clinical Summary ---
Author Organization [facility] Address [address] [place] [address] Care Team Providers Care Crisis Counselor Name Role Phone Chinmay Mora MD Primary Care Provider [phone] Source Comments [facility],non-ssm health care Affiliates and Associated Physician Practices is amultiple site organization consisting of ambulatory clinics and hospital sitesin [place], [place], [place] and [place]. This disclosure is being madepursuant to the Care Everywhere program and may not contain all information available regarding this patient. Last updated 17.[facility] Allergies Active Allergy Reactions Criticality Noted Date [...] (ICD) in situ 03/04/2018 Overview (05/22/2024): Medtronic ICD-FEDERAL JUDGE implanted in 2018 for secondary prevention following [...] Hospital') prescribes Xanax Depression 10/23/2017 Overview (10/23/2017): Duncan depression scale (10/23/2017) 1930--at risk for current major depressive episode Tobacco smoking affecting , antepartum 10/23/2017 Decreased cardiac ejection fraction 10/23/2017 Overview (10/23/2017): Follow-up with Cardiology with repeat maternal echocardiogram Migraine 10/23/2017 Nonischemic cardiomyopathy 11/11/2015 Overview (05/22/2024): Medtronic ICD-FEDERAL JUDGE implanted in 2019 for secondary prevention following cardiac arrest Head injury 08/15/2008 Overview (12/02/2014): Generalized anxiety disorder 01/21/2004 Peripartum cardiomyopathy, 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 Encounters Date Type Department Care Team Description 05/22/2024 8:19 PM CDT - 05/24/2024 12:27 PM CDT Hospital Encounter [facility]ly [facility] - Pulmonary/Telemetry [address] [place] [address] Alex Trujillo MD Patel, Sahil M, MD [...] on file 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 Gender Identity Not on file Sexual Orientation [...] - 10.7 x10E9/L 05/23/2024 5:08 AM CDT [facility] RBC Count 4.70 3.90 - 5.20 x10E12/L 05/23/2024 5:08 AM CDT [facility] Hemoglobin 13.7 11.9 - 15.8 g/dL 05/23/2024 5:08 AM CDT [facility] Hematocrit 40.7 34.8 - 46.1 % 05/23/2024 5:08 AM CDT [facility] MCV 86.6 80.0 - 98.0 fL 05/23/2024 5:08 AM CDT [facility] MCH 29.1 26.7 - 33.6 pg [...] ORDERABLES Fin al Result Performing Organization Address City/[facility]/ZIP Co de Phone Number [facility] [address] [place] [address] * (ABNORMAL) BASIC METABOLIC PANEL (CALCIUM TOTAL) (05/23/2024 4:06 AM CDT) [facility] Glucose 124(H) 70 - 99 mg/dL 05/23/2024 5:24 AM [facility] Sodium 142 136 - 145 mmol/L [...] ORDERABLES Rosalina l Result Performing Organization Address City/[facility]/ZIP Co de Phone Number [facility] [address] [place] [address] * PHOSPHORUS BLOOD (05/23/2024 4:06 AM CDT) Pathologist [facility] Phosphorus 3.1 2.5 - 4.5 mg/dL 05/23/2024 5:24 AM CDT [facility] Blood BLOOD SPECIMEN / Unknown Lab Venipuncture / Unknown 05/23/2024 4:06 AM CDT 05/23/2024 5:03 AM CDT Vincent Wu MD LAB - CHEMISTRY ORDERABLES Rosalina l Result [facility] [address] [place] [address] * MAGNESIUM BLOOD (05/23/2024 4:06 AM CDT) [facility] Magnesium 1.9 1.6 - 2.6 mg/dL 05/23/2024 5:24 AM CDT [facility] Blood BLOOD SPECIMEN / Unknown Lab Venipuncture / Unknown 05/23/2024 4:06 AM CDT 05/23/2024 5:03 AM CDT Vincent Wu MD LAB - CHEMISTRY ORDERABLES Rosalina l Result [facility] [address] [place] [address] * SARS-COV-2 (COVID-19) FLU A/B RSV PCR RAPID (05/23/2024 2:56 AM CDT) [facility] COVID-19 PCR Not detected Not detected 05/24/19 3:37 AM CDT [facility] Influenza A PCR Not detected Not detected 05/23/2024 3:37 AM CDT [facility] Influenza B PCR Not detected Not detected 05/23/2024 3:37 AM CDT [facility] RSV PCR Not detected Not detected 05/23/2024 3:37 AM CDT [facility] Microbiology SPECIMEN FROM NASOPHARYNGEAL STRUCTURE / Unknown Collection / Unknown 05/23/2024 2:56 AM CDT 05/23/2024 2:59 AM CDT Narrative [facility] - 05/23/2024 3:37 AM CDT This [...] LAB - MICROBIOLOGY ORDERABLES F inal Result [facility] [address], [place] [id number] * XR Chest 2Vw (05/22/2024 10:15 PM [...] I <0.05 <0.05 05/22/2024 10:18 PM CDT [facility] Blood BLOOD SPECIMEN / Unknown Venipuncture / Unknown 05/22/2024 10:00 PM CDT 05/22/2024 10:00 PM CDT us Alex Trujillo MD LAB - CHEMISTRY ORDERABLES Final Result [facility] [address] [place] [address] * (ABNORMAL) B-TYPE NATRIURETIC PEPTIDE (05/22/2024 10:00 PM CDT) Pathologist [facility] BNP 545(H) <=100 pg/mL 05/23/2024 12:[address] [facility] Blood BLOOD SPECIMEN / Unknown Venipuncture / Unknown 05/22/2024 10:00 PM CDT 05/22/2024 10:00 PM CDT us Alex Trujillo MD LAB - CHEMISTRY ORDERABLES Final Result [facility] [address] [place] [address] * (ABNORMAL) COMPREHENSIVE METABOLIC PANEL (05/22/2024 10:00 PM CDT) Glucose 103(H) 70 - 99 mg/dL 05/22/2024 10:15 PM CDT [facility] Sodium 142 128 - 145 mmol/L 05/22/2024 10:15 PM [facility] Potassium 4.2 3.6 - 5.1 mmol/L 05/22/2024 10:15 PM [facility] Chloride 111(H) 98 - 108 mmol/L 05/22/2024 10:15 PM [facility] CO2 24 18 - 33 mmol/L 05/22/2024 10:15 PM [facility] Calcium 9.5 8 - 10.3 mg/dL 05/22/2024 10:15 PM [facility] Anion Gap 7(L) 8 - 16 mmol/L 05/22/2024 10:15 PM [facility] BUN 13 7 - 22 mg/dL 05/22/2024 10:15 PM [facility] Creatinine 0.80 0.60 - 1.20 mg/dL 05/22/2024 10:15 PM [facility] Alkaline Phosphatase 73 42 - 141 U/L 05/22/2024 10:15 PM [facility] ALT 18 10 - 47 U/L 05/22/2024 10:15 PM [facility] AST 33 11 - 38 U/L 05/22/2024 10:15 PM [facility] Protein Total 6.3(L) 6.4 - 8.1 gm/dL 05/22/2024 10:15 PM [facility] Albumin 3.5 3.3 - 5.5 gm/dL 05/22/2024 10:15 PM [facility] Bilirubin Total 0.5 0.2 - 1.6 mg/dL 05/22/2024 10:15 PM [facility] eGFR by CKD-EPI >90 >=90 mL/min/1.7 3 m2 05/22/2024 10:15 PM [facility] Blood BLOOD SPECIMEN / Unknown Venipuncture / Unknown 05/22/2024 10:00 PM CDT 05/22/2024 10:00 PM T us Alex Trujillo MD LAB - CHEMISTRY ORDERABLES Final Result [facility] [address] [place], [place] [address] [phone] * (ABNORMAL) URINE MICROSCOPIC ONLY REFLEX TO CULTURE (05/22/2024 9:51 PM CDT) Reflex Status Culture to follow 05/23/2024 12:07 AM CDT -[facility] RBC UA 3-5 0 - 5 # /hpf 05/23/2024 12:[address] [facility] WBC UA 21-50(A) 0 - 5 # /hpf 05/23/2024 12:[address] [facility] Bacteria UA 1+(A) None Seen 05/23/2024 12:[address] [facility] Squamous Epithelial Cells 3-5 0 - 5 /hpf 05/23/2024 12:[address] [facility] Mucus UA 1+ /LPF 05/23/2024 12:[address] [facility] Urine URINE SPECIMEN OBTAINED BY CLEAN CATCH PROCEDURE / Unknown Collection / Unknown 05/22/2024 9:51 PM CDT 05/22/2024 9:51 PM CDT us Alex Trujillo MD LAB - URINALYSIS ORDERABLES Rosalina smith Result [facility] [address] [place] [address] * (ABNORMAL) URINALYSIS REFLEX MICROSCOPIC REFLEX CULTURE (05/22/2024 9:51 PM CDT) Color UA Yellow Straw, Light Yellow, Yellow, Dark Yellow 05/22/2024 9:57 PM CDT [facility] Clarity UA Cloudy(A) Clear 05/22/2024 9:57 PM CDT [facility] Glucose UA Negative Negative 05/22/2024 9:57 PM CDT [facility] Bilirubin UA Negative Negative 05/22/2024 9:57 PM CDT [facility] Ketone UA Negative Negative 05/22/2024 9:57 PM CDT [facility] Specific Herminie UA 1.015 1.005 - 1.030 05/22/2024 9:57 PM CDT [facility] Blood UA Negative Negative 05/22/2024 9:57 PM CDT [facility] pH UA 6.5 5.0 - 8.0 pH 05/22/2024 9:57 PM CDT [facility] Protein UA Trace(A) Negative 05/22/2024 9:57 PM CDT [facility] Urobilinogen UA Negative Negative mg/dL 05/22/2024 9:57 PM CDT [facility] Nitrite UA Positive(A) Negative 05/22/2024 9:57 PM CDT [facility] Leukocyte UA 1+(A) Negative 05/22/2024 9:57 PM CDT [facility] Urine Microscopy Urine microscopy to follow 05/22/2024 9:57 PM CDT [facility] Reflex Status Culture to follow 05/22/2024 9:57 PM CDT [facility] Urine URINE SPECIMEN OBTAINED BY CLEAN CATCH PROCEDURE / Unknown Collection / Unknown 05/22/2024 9:51 PM CDT 05/22/2024 9:51 PM CDT us Alex Trujillo MD LAB - URINALYSIS ORDERABLES Rosalina l Result [facility] [address] [phone] * (ABNORMAL) DRUG SCREEN URINE (05/22/2024 9:51 PM CDT) [facility] Cannabinoids Screen Urine Not detected Not detected 05/22/2024 10:04 PM CDT [facility] Phencyclidine Screen Urine Not detected Not detected 05/22/2024 10:04 PM CDT [facility] Cocaine Screen Urine Detected(A) Not detected 05/22/2024 10:04 PM CDT [facility] Methamphetamine Screen Urine Not detected Not detected 05/22/2024 10:04 PM CDT [facility] Opiate Screen Urine Not detected Not detected 05/22/2024 10:04 PM CDT [facility] Amphetamines Screen Urine Not detected Not detected 05/22/2024 10:04 PM CDT [facility] Benzodiazepines Screen Urine Not detected Not detected 05/22/2024 10:04 PM CDT [facility] Tricyclics Screen Urine Not Detected Not Detected 05/22/2024 10:04 PM CDT [facility] Methadone Screen Urine Not detected Not detected 05/22/2024 10:04 PM CDT [facility] Barbiturates Screen Urine Not detected Not detected 05/22/2024 10:04 PM CDT [facility] Oxycodone Screen Urine Not detected Not detected 05/22/2024 10:04 PM CDT [facility] Urine URINE / Unknown Collection / Unknown 05/22/2024 9:51 PM CDT 05/22/2024 9:51 PM CDT [facility] - 05/22/2024 10:04 PM CDT This [...] LAB - URINE CHEMISTRY ORDERABLES Final Result [facility] [address] [phone] * (ABNORMAL) CULTURE URINE (05/22/2024 9:51 PM CDT) [facility] Culture Urine >100,000 CFU/mL Escherichia coli(A) LILLIAN 05/25/2024 2:36 AM CDT [facility] Urine URINE SPECIMEN OBTAINED BY [...] LAB - MICROBIOLOGY ORDERABLES Fi nal Result [facility] [address] [place] [address], [facility] [phone] * HCG URINE QUALITATIVE - POCT (IP) INTERFACED (05/22/2024 9:45 PM CDT) [facility] Qual Urine Negative Negative 05/22/2024 10:04 PM CDT [facility] Urine URINE / Unknown Collection / Unknown 05/22/2024 9:45 PM CDT 05/22/2024 9:45 PM CDT us Alex Trujillo MD LAB - POINT OF CARE ORDERABLES F inal Result [facility] [address] [place] [address], [facility] [phone] from Last 3 Months Additional Health Concerns Infection Onset Date Last 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 Source: [facility]. 12/15/2018 MDRO Hx Comment:Added from external infection. Source: [facility]. 07/21/2020 Insurance MEDICAID [employer] [facility] MEDICAID - OUT OF STATE [facility] PAYOR Advance Directives * Full Code [...] 4:59 PM 11/10/2017 7:59 PM Care Teams Crisis Counselor Relationship Specialty Start Date End Date Chinmay Mora MD [facility] [address] [address] PCP - General Internal Medicine 10/04/17
--- OUTSIDE RECORDS SUMMARY | 2024-07-01 20:58 | XMS_ITS | Encounter Summary ---
Author Organization [facility] Address [address] [place] [address] Care Team Providers Care Chief Construction Inspector Name Role Phone Sha Ayala MD Primary Care Provider [phone] Sharon Pace MD Unavailable [phone] Tania Palmer MD Unavailable Encounter Details Date Type Department Care Team (Late st Contact Info) Description 09/30/2020 [facility] Message Enc [place] [facility] [address] [employer], [facility] Provider Carelink Alert received Social History Tobacco Use Types Packs/Day Years [...] documented as of this encounter Care Teams Chief Construction Inspector Relationship Specialty Start Date End Date Sha Ayala MD PCP - General INTERNAL MEDICINE 12/22/18 Sharon Pace MD [address] [place], [place] [address] [employer]izer CARDIOVASCULAR DISEASE 10/03/15 Tania Palmer MD [address] [place], [place] [id number] EP Search Engine Optimizer CLINICAL CARDIAC ELECTROPHYSIOLOGY 12/26/18 documented as of this encounter
--- OUTSIDE RECORDS SUMMARY | 2024-07-01 20:58 | XMS_ITS | Encounter Summary ---
Author Organization [facility] Address [address] [place] [address] Care Team Providers Care As400 Programmer Name Role Phone Sha Ayala MD Primary Care Provider [phone] Sharon Pace MD Unavailable [phone] Tania Palmer MD Unavailable Encounter Details Date Type Department Care Team (Late st Contact Info) Description 11/01/2021 [facility] Message Enc [place] [facility] [address] [address] [facility] Provider Carelink Transmission received Social History Tobacco Use Types Packs/Day [...] documented as of this encounter Care Teams As400 Programmer Relationship Specialty Start Date End Date Sha Ayala MD PCP - General INTERNAL MEDICINE 12/22/18 Sharon Pace MD [address] [place], [place] [address] [place] Counseling Case Manager CARDIOVASCULAR DISEASE 10/03/15 Tania Palmer MD [address] [place], [place] [id number] EP Counseling Case Manager CLINICAL CARDIAC ELECTROPHYSIOLOGY 12/26/18 documented as of this encounter
--- OUTSIDE RECORDS SUMMARY | 2024-07-01 20:58 | XMS_ITS | Referral Summary ---
Author Organization [facility] Address [address] [place] [address] Care Team Providers [employer] Name Role Phone Sha Ayala MD Primary Care Provider [phone] Encounters Date Type Department Care Team Description 06/30/[address] [address] Jazmin Floyd, RN 06/25/[address] [address] Jazmin Floyd, RN 06/23/[address] [address] Jazmin Floyd, RN 06/16/2024 Results Follow-Up [facility] Emergency Department [address] [place] [id number] Dawn Martínez PA 06/14/2024 2:07 AM CDT - 06/14/2024 10:12 AM CDT Emergency [address] [address] ProgrAnnabel lewis MD Abbeg, Andrew Paul, DO [...] on file 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 Trop T hs delta -1 ng/L [facility] Trop T hs interp Insignificant [facility] Blood 06/14/2024 8:08 AM CDT 06/14/2024 8:10 AM CDT Annabel Slade MD LAB BLOOD ORDERABLES F inal Result Performing Organization Address [facility] Co de Phone Number [address] [place] [address] * N. gonorrhoeae/C. trachomatis Amplification Vaginal (06/14/2024 7:30 AM CDT) C. trachomatis Not Detected Not Detected N. gonorrhoeae Not Detected Not Detected [facility] Comment: Interpretive Data This assay detects Chlamydia trachomatis and Neisseria gonorrhoeae by nucleic acid amplification testing (NAAT). This assay has been cleared by the [place] Food and Drug administration. The performance characteristics of this test have been verified by the [facility]. The performance characteristics of this test have not been evaluated in individuals less than 14 years of age. Current Interpretive Data last revised 2023. Vaginal (None) 06/14/2024 7: 30 AM CDT 06/14/2024 7:39 AM CDT Franklyn Bains DO LAB MICROBIOLOGY - GENERAL ORDERABLES Final Result Performing Organization Address [facility] Co de Phone Number [address] [address] * (ABNORMAL) Vaginitis panel Vaginal (06/14/2024 7:30 AM CDT) Bacterial Vaginosis Detected(A) Not Detected Comment:The BV organism targ ets of this test can be commensal in women; results should be considered in conjunction with clinical presentation to determine the disease status. Rama group Not Detected Not Detected [facility] Rama glabrata/ krusei Not Detected Not Detected [facility] Trichomonas DNA Detected(A) Not Detected [facility] Vaginal 06/14/2024 7:30 AM CDT 06/14/2024 7:39 AM CDT Narrative [facility] - 06/14/2024 8:42 AM CDT The CepRallyware Xpert Xpress MVP test detects DNA targets [...] this test have been verified by the [facility]. The Cepheid Xpert Xpress [...] this test have been verified by the [facility]. Franklyn Bains DO LAB MICROBIOLOGY - GENERAL ORDERABLES Final Result [facility] [address] [facility] Department of Laboratories [place], [place] [id number] * Troponin T high-sensitivity 4-hour (06/14/2024 5:55 AM CDT) Trop T hs 11 <=14 ng/L Comment: Interpretive Data For further hscTnT resources including the diagnostic algorithm and an aid in interpretation, copy and paste this link: https://nrl.testcatalog.org/show/hsTrop Current Interpretive Data last revised 2020. Trop T hs delta -1 ng/L [facility] Trop T hs interp Insignificant [facility] Blood 06/14/2024 5:55 AM CDT 06/14/2024 5:57 AM CDT Annabel Slade MD LAB BLOOD ORDERABLES F inal Result [facility] [address] [place] [address] * (ABNORMAL) Urinalysis reflex to microscopic and culture Urine (06/14/2024 4:47 AM CDT) Color, ur Other(A) Yellow Clarity, ur Turbid(A) Clear [facility] Specific gravity, ur 1.015 1.003 - 1.030 [facility] pH, urine 6.5 [facility] Comment: Interpretive Data U rine pH is affected by diet, medications, systemic acid-base disturbances, and renal tubular function. pH may affect urinary stone formation. For example, urine pH below 6.0 may help reduce the tendency for calcium phosphate stones and pH greater than 6.0 may reduce the tendency for uric acid stone formation. Source: [facility] Current Interpretive Data was last revised on 2017 Protein, ur ql Negative Negative [facility] Glucose, ur ql Negative Negative [facility] Ketones, ur Negative Negative [facility] Bilirubin, ur Negative Negative [facility] Blood, ur 1+(A) Negative [facility] Urobilinogen, ur <2.0 <2.0 mg/dL [facility] Nitrite, ur Positive(A) Negative [facility] Leukocyte esterase, ur 4+(A) Negative [facility] UA reflex comment Reflex to microscopic UA will be performed. [facility] Urine 06/14/2024 4:47 AM CDT 06/14/2024 5:49 AM CDT Annabel Slade MD LAB MICROBIOLOGY - GEN ERAL ORDERABLES Edited Result - [facility] [address] [place] [address] * (ABNORMAL) Drugs of Abuse Screen, Urine without Confirmation (06/14/2024 4:47 AM CDT) [facility] Amphetamine, ur Not Detected CutOff 500ng/mL Comment: Interpretive Data - Amphetamines: Samples containing greater than 500 ng/mL d-methamphetamine or other cross-reacting amphetamine compounds are reported as positive. Amphetamine immunoassays are subject to significant false positive rates due to cross-reactivity of non-amphetamine drugs. Confirmatory testing required for definitive results. Current Interpretive Data was last reviewed 2022. Barbiturates, ur Not Detected CutOff 200ng/mL [facility] Comment: Interpretive Data - Barbiturates: Samples containing greater than 200 ng/mL secobarbital or other cross-reacting barbiturate compounds are reported as positive. False positive and false negative results are possible. Confirmatory testing required for definitive results. Current Interpretive Data was last reviewed 2022. Benzodiazepines, ur Not Detected CutOff 100ng/mL [facility] Comment: Interpretive Data - Benzodiazepines: Samples containing greater than 100 ng/mL nordiazepam or other cross-reacting compounds are reported as positive. False positive and false negative results are possible. Confirmatory testing required for definitive results. Current Interpretive Data was last reviewed 2022. Cannabinoids, ur Not Detected CutOff 50 ng/mL [facility] Comment: Interpretive Data - Cannabinoids: Samples containing greater than 50 ng/mL delta-9 THC -COOH or other cross- reacting compounds are reported as positive. False positive and false negative results are possible. Confirmatory testing required for definitive results. Current Interpretive Data was last reviewed 2022. Cocaine, ur Screen Positive, presumptive (A) CutOff 150ng/mL [facility] Comment: Interpretive Data - Cocaine: Samples containing greater than 150 ng/mL benzoylecgonine or other cross- reacting compounds are reported as positive. False positive and false negative results are possible. Confirmatory testing required for definitive results. Current Interpretive Data was last reviewed 2022. Fentanyl, Ur Not Detected CutOff 5 ng/mL [facility] Comment: Interpretive Data - Fentanyl: Samples containing [...] MD LAB URINE ORDERABLES F inal Result [address] [address] * (ABNORMAL) Urinalysis, microscopic only (06/14/2024 4:47 AM CDT) WBC, ur >50(A) 0 - 5 /HPF RBC, ur >50(A) 0 - 2 /HPF [facility] Epithelial cells, squamous, ur 6-10(A) 0 - 5 /HPF [facility] Comment:Suggestive of contam ination. Consider recollection by clean catch. Mucous, ur Present(A) [facility] Culture Reflex Comment Reflex to urine culture will be performed. [facility] Urine 06/14/2024 4:47 AM CDT 06/14/2024 5:49 AM CDT us Annabel Slade MD LAB URINE ORDERABLES F inal Result [address] [address] * (ABNORMAL) Urine culture Urine (06/14/2024 4:47 AM CDT) Report Final Report: Greater than or equal to 100,000 colonies/mL of Escherichia coli (.) Comment:Testing performed by : [facility], [address] [facility] [place] [address] Organism ESCHERICHIA COLI [facility] Urine 06/14/2024 4:47 AM CDT 06/14/2024 1:49 PM CDT Narrative [facility] - 06/16/2024 8:37 AM CDT Urine culture reflexed based upon urinalysis results. Testing performed by [facility] Microbiology Laboratory ([phone]) Organism Antibiotic Method Susceptibility Escherichia coli Ampicillin [...] ERAL ORDERABLES Final Result Performing Organization Address [facility] Co de Phone Number [facility] [address] [place] [address] * Troponin T high-sensitivity 2-hour (06/14/2024 4:17 AM CDT) Trop T hs See Comment <=14 Comment: Credited due to hemolysis; if immediate recollection is needed, enter an order for a standalone troponin. Do not reorder the troponin series. Hemolyzed Specimen- Called to [id number] Interpretive Data For further hscTnT resources including the diagnostic algorithm and an aid in interpretation, copy and paste this link: https://nrl.testcatalog.org/show/hsTrop Current Interpretive Data last revised 2020. Trop T hs interp See Comment [facility] Comment:Hemolyzed Specimen- Called to [id number] Blood 06/14/2024 4:17 AM CDT 06/14/2024 4:19 AM CDT Annabel Slade MD LAB BLOOD ORDERABLES F inal Result Performing Organization Address [facility] Co de Phone Number [facility] [address] Department [place] [address] * XR Chest 1 Vw Portable (06/14/2024 [...] Kaushal Smith M.D. AR T: Report ID: [id number] Reading Location: [id number] Procedure Note Kaushal Smith MD - 06/14/2024 [...] Kaushal Smith M.D. AR T: Report ID: [id number] Reading Location: [id number] Annabel Slade MD IMG XR PROCEDURES Rosalina [...] LAB BLOOD ORDERABLES F inal Result [facility] [address] [place] [address] * eGFR (06/14/2024 2:32 AM CDT) eGFR [...] ORDERABLES F inal Result Performing Organization Address City/[facility]/ZIP Co de Phone Number [facility] [address] [place] [address] * (ABNORMAL) Differential, auto (06/14/2024 2:32 AM CDT) Neutrophil abs 4.84 1.50 - 6.50 K/cumm Imm gran abs 0.02 0.00 - 0.10 K/cumm [facility] Lymphocyte abs 1.89 0.80 - 3.30 K/cumm [facility] Monocyte abs 0.82(H) 0.20 - 0.80 K/cumm [facility] Eosinophil abs 0.24 0.00 - 0.50 K/cumm [facility] Basophil abs 0.09 0.00 - 0.10 K/cumm [facility] Neutrophil pct 61.3 % [facility] Comment: Interpretive Data Percent cell count reference ranges are not reported, since discordance with absolute values may lead to misinterpretation of CBC data. Current Interpretive Data was last revised on 2017. Imm gran pct 0.3 % [facility] Comment: Interpretive Data Percent cell count reference ranges are not reported, since discordance with absolute values may lead to misinterpretation of CBC data. Current Interpretive Data was last revised on 2017. Lymphocyte pct 23.9 % [facility] Comment: Interpretive Data Percent cell count reference ranges are not reported, since discordance with absolute values may lead to misinterpretation of CBC data. Current Interpretive Data was last revised on 2017. Monocyte pct 10.4 % [facility] Comment: Interpretive Data Percent cell count reference ranges are not reported, since discordance with absolute values may lead to misinterpretation of CBC data. Current Interpretive Data was last revised on 2017. Eosinophil pct 3.0 % [facility] Comment: Interpretive Data Percent cell count reference ranges are not reported, since discordance with absolute values may lead to misinterpretation of CBC data. Current Interpretive Data was last revised on 2017. Basophil pct 1.1 % [facility] Comment: Interpretive Data Percent cell count reference ranges are not reported, since discordance with absolute values may lead to misinterpretation of CBC data. Current Interpretive Data was last revised on 2017. Blood 06/14/2024 2:32 AM CDT 06/14/2024 2:36 AM CDT Annabel Slade MD LAB BLOOD ORDERABLES F inal Result [facility] Department [place] [address] * (ABNORMAL) Pro B-type natriuretic peptide (06/14/2024 [...] LAB BLOOD ORDERABLES F inal Result [facility] [place] [address] * (ABNORMAL) CBC with auto differential (06/14/2024 2:32 AM CDT) [facility] WBC 7.90 3.80 - 9.90 K/cumm Hgb 12.9 11.9 - 15.5 g/dL [facility] Hct 41.2 35.6 - 45.5 % [facility] Plt 323 150 - 400 K/cumm [facility] MPV 8.9(L) 9.1 - 12.3 fL [facility] RBC 4.48 3.90 - 5.20 M/cumm [facility] MCV 92.0 81.3 - 96.4 fL [facility] MCH 28.8 27.1 - 33.3 pg [facility] MCHC 31.3(L) 32.3 - 35.7 g/dL [facility] RDW CV 13.4 11.1 - 14.9 % [facility] RDW SD 45.0 35.7 - 48.1 fL [facility] NRBC abs 0.00 0.00 - 0.01 K/cumm [facility] Blood 06/14/2024 2:32 AM CDT 06/14/2024 2:36 AM CDT us Annabel Slade MD LAB BLOOD ORDERABLES F inal Result Performing Organization Address City/[facility]/ZIP Co de Phone Number [address] [place] [address] * aPTT (06/14/2024 2:32 AM CDT) [facility] aPTT 26 22 - 37 sec Comment: Interpretive data aPTT test has not been evaluated for monitoring heparin therapy. The anti-Xa is the preferred test. Current interpretive data was last revised on 2019. Blood 06/14/2024 2:32 AM CDT 06/14/2024 2:36 AM CDT Annabel Slade MD LAB BLOOD ORDERABLES F inal Result Performing Organization Address City/[facility]/ZIP Co de Phone Number [address] [address] * (ABNORMAL) Protime-INR (06/14/2024 2:32 AM CDT) Pathologist [facility] PT 16.2(H) 12.0 - 14.6 sec Comment:Ref Range High INR 1.3(H) 0.9 - 1.2 [facility] Comment: Ref Range High Interpretive data Oral [...] ORDERABLES F inal Result Performing Organization Address [facility] Co de Phone Number [address] [place] [place] [address] * Ethanol (06/14/2024 2:32 AM CDT) Pathologist [facility] Ethanol <10 <=10 mg/dL Comment: Interpretive Data Legal limit of intoxication > or = 80 mg/dL Levels > or = 400 mg/dL are potentially TOXIC. Current interpretive data was last revised on 2018. Blood 06/14/2024 2:32 AM CDT 06/14/2024 2:35 AM CDT Annabel Slade MD LAB BLOOD ORDERABLES F inal Result Performing Organization Address [facility] Co de Phone Number [address] [address] * (ABNORMAL) Comprehensive metabolic panel (06/14/2024 2:32 AM CDT) [facility] Sodium 143 135 - 145 mmol/L Potassium, pl 3.4 3.3 - 4.9 mmol/L [facility] Chloride 109 97 - 110 mmol/L [facility] CO2 24 22 - 32 mmol/L [facility] Anion gap 10 2 - 15 mmol/L [facility] BUN 17 6 - 25 mg/dL [facility] Creatinine 0.96 0.60 - 1.10 mg/dL [facility] Glucose 86 70 - 199 mg/dL [facility] Comment: Interpretive Data Fasting glucose >/= 126 [...] 2022. Calcium 9.2 8.5 - 10.3 mg/dL [facility] Bilirubin, total 0.2 0.1 - 1.2 mg/dL [facility] Protein, pl 6.4(L) 6.5 - 8.5 g/dL [facility] Albumin 3.7 3.5 - 5.0 g/dL [facility] Alk phos 65 40 - 130 Units/L [facility] ALT 15 7 - 45 Units/L [facility] AST 21 10 - 45 Units/L [facility] Blood 06/14/2024 2:32 AM CDT 06/14/2024 2:35 AM CDT Annabel Slade MD LAB BLOOD ORDERABLES F inal Result [facility] [address] [facility] Department [place] [address] * ECG 12 lead (06/14/2024 2:24 AM CDT) Ventricular Rate EKG/Min 87 BPM [facility] Atrial Rate 87 BPM [facility] NE-Interval (MSEC) 164 ms [facility] QRS-Interval (MSEC) 146 ms [facility] QT-Interval (MSEC) 452 ms [facility] QTc 543 ms [facility] P Drewsey 64 degrees [facility] R Drewsey -24 degrees [facility] T Drewsey 82 degrees [facility] Diagnosis Atrial-sensed ventricular-p aced rhythm Abnormal ECG When compared with ECG of 01-MAY-2022 06:16, Vent. rate has increased BY 17 BPM Confirmed by RICHARD GIFFORD M.D. ([id number]) on 06/14/2024 5:03:59 PM [facility] 06/14/2024 2:24 AM CDT 06/14/2024 5:03 PM CDT us Annabel Slade MD ECG ORDERABLES Final Result 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
[2024-07-01 21:31] LABS: NT Pro B Type Natriuretic Pept 753 pg/mL (19.9-100)
[2024-07-01 23:40] LABS: Troponin I < 0.012 ng/mL (0.000-0.034)
[2024-07-02] VITALS (22 sets, daily range): BP systolic 100–143; BP diastolic 59–92; PULSE 72–112; RESP 15–22; TEMP 36.4–37; O2SAT 96–100; BMI 24.6; BMI 24.7
--- NOTE | 2024-07-02 00:54 | ADMGEN ---
This patient, Mary Palomino, was admitted to IMU Room 203-01. Patient/family oriented to hospital policies and general routines including ID bracelet, bed and alarms, visiting hours, pain management, procedures, bathroom and other care routines, personal items, smoking policy, room service/diet, and visiting hours. Information on how to activate the Rapid Response Team has been discussed. Patient/Family are encouraged to report perceived risks to care and to ask questions if they do not understand what they are told or what they should do.
--- NOTE | 2024-07-02 01:55 | P.HP_ITS ---
H&P: HPI History of Present Illness Date/Time: 07/02/24 00:45 Chief Complaint: Chest discomfort. Narrative: This is a 48-year-old female smoker with history of nonischemic cardiomyopathy status post AICD/pacemaker implantation, restless leg syndrome, and recreational cocaine user who presented to the emergency department via EMS from [facility] for evaluation of chest discomfort. She has been in custody for couple of weeks and has not received any of her medications. Today she was sitting down playing cards when she developed fairly sudden onset of mid chest pressure associated with aching discomfort in the right jaw, mild shortness of breath, and lightheadedness with slight darkening of her vision. She similar feelings within the last month or so when she was admitted to a hospital in [place], [place] for what sounds like ventricular tachycardia in which her defibrillator did not fire. She has never had chest discomfort like this before. She has not used cocaine for several weeks. She denies syncope, recent stressors, pleuritic pain, sensations of racing heart, palpitations, orthopnea, paroxysmal nocturnal dyspnea, cold and flu symptoms, abdominal pain, nausea, vomiting, diarrhea, edema, and calf pain. In the ED: Vital signs on arrival include a temperature of 98.1?, blood pressure 146/80, pulse 90, respiratory rate 18, SpO2 99% on room air. Labs were significant for troponin of 0.014, proBNP 753, lipase 326, BUN 25. EKG showed atrial sense electronic ventricular pacemaker with inhibition and left bundle- branch block. No interventions were undertaken in the ED. She is being admitted in this setting for close monitoring and Cardiology consultation. Review of Systems Review of Systems: 12 systems were reviewed and are negativ e except for as per HPI. [facility] Past Medical History Medical History (Updated 07/02/24 @ 03:18 by Idalia Jerome PA-C) Restless leg syndrome Cocaine use Cardiac arrest Tobacco use Clostridium difficile diarrhea Nonischemic cardiomyopathy Surgical History Surgical History (Updated 07/02/24 @ 03:11 by Idalia Jerome PA-C) History of arthroscopic knee surgery History of permanent cardiac pacemaker placement History of implantable cardioverter-defibrillator (ICD) placement Family History Family History Father Lupus (systemic lupus erythematosus) Grandparent Heart disease Other No problems noted. Social History Social History (Updated 07/02/24 @ 03:12 by Idalia Jerome PA-C) Social History: Surrogate medical decision maker: Hiwot Li, mother ([phone]). Code status: Full code. Smoking packs per day: 0.5 Smoking cigarettes per day: 10.0 Years smoked: 31 Smoking pack-years: 15.50 Smoking status: Current some day smoker Tobacco type: cigarettes Alcohol intake: current Substance use: former Substance use type: crack/cocaine Last use: 3 weeks Do You Feel Safe in your Home?: Yes Lack of Transportation: YES Lack of Food: Never True Current Housing: I Do Not Have Housing Concerned About Future Housing: No Difficulty Paying Gas/Electric Bills: No Difficulty Paying for Meds: No Currently Unemployed: No Education: Bachelor's Degree Difficulty w/ Childcare or Family Care: No Spiritual care concerns: No Meds Home Medications and Allergies Home Medications ?Medication ?Instructions ?Recorded ?Confirmed ?Type metoprolol tartrate 25 mg tablet 25 mg PO Q12H 07/02/24 07/02/24 History zolpidem 10 mg tablet 10 mg PO HS 07/02/24 07/02/24 History Allergies Allergy/AdvReac Type Severity Reaction Status Date / Time Sulfa (Sulfonamide Allergy Severe HIVES Verified 11/05/17 17:36 Antibiotics) Vital Signs Vital Signs - 24 hr 07/01/24 19:53 07/01/24 20:32 07/01/24 20:33 Temperature 98.1 F Pulse Rate 90 91 Respiratory Rate 18 Blood Pressure 146/80 H Pulse Oximetry 99 Oxygen Delivery Room Air Room Air 07/01/24 20:39 07/01/24 20:45 07/01/24 20:46 Temperature Pulse Rate 79 82 82 Respiratory Rate 15 16 14 Blood Pressure 101/84 Pulse Oximetry 100 99 Oxygen Delivery 07/01/24 21:00 07/01/24 21:01 07/01/24 21:15 Temperature Pulse Rate 83 77 77 Respiratory Rate 23 H 14 16 Blood Pressure 119/77 Pulse Oximetry 100 100 99 Oxygen Delivery 07/01/24 21:16 07/01/24 21:37 07/01/24 21:45 Temperature Pulse Rate 88 92 80 Respiratory Rate 12 20 16 Blood Pressure 99/72 L Pulse Oximetry 100 100 Oxygen Delivery 07/01/24 22:00 07/01/24 23:19 07/01/24 23:53 Temperature Pulse Rate 84 74 86 Respiratory Rate 19 17 17 Blood Pressure Pulse Oximetry 98 100 100 Oxygen Delivery 07/02/24 00:23 07/02/24 00:30 07/02/24 00:31 Temperature Pulse Rate 84 87 89 Respiratory Rate 18 22 H 15 Blood Pressure 143/91 H Pulse Oximetry 100 100 100 Oxygen Delivery 07/02/24 00:40 07/02/24 01:06 Temperature 98.1 F 97.6 F Pulse Rate 96 88 Respiratory Rate 18 17 Blood Pressure 143/91 H 132/83 Pulse Oximetry 98 100 Oxygen Delivery Exam Narrative: General: Well-developed, nontoxic-appearing female sitting up in bed. Weight: 59.5 kg. BMI: 24.8. HEENT: PERRL, EOMI. Sclera anicteric. Oral mucosa moist. Neck: Supple. Respiratory: Lungs are clear to auscultation bilaterally. Cardiovascular: Regular rate and rhythm with S1-S2. PM/ICD in the left anterior chest. Gastrointestinal: Abdomen is soft, nontender, and nondistended with positive bowel sounds. Skin: Warm and dry. No rash or lesions on limited exam. Extremities: No cyanosis, clubbing, or edema. Radial and pedal pulses intact. Neurological: Alert. Cranial nerves 2-12 are grossly intact. No gross focal deficits to casual conversation. Psychiatric: Pleasant and cooperative with normal mood and affect. Judgment and insight intact. H&P: Results Labs Labs: Short CBC 07/01/24 Range/Units 20:11 WBC 9.8 (4.5-10.0) K/mm3 Hgb 14.4 (12.0-15.0) g/dL Hct 44.9 (37.0-47.0) % Plt Count 367 (150-375) k/mm3 BMP 07/01/24 20:11 Sodium 137 Potassium 4.1 Chloride 105 Carbon Dioxide 23 BUN 25 H Creatinine 0.75 Glucose 94 Calcium 9.6 Cardiac Enzymes 07/01/24 07/01/24 Range/Units 20:11 22:55 Troponin I 0.014 < 0.012 (0.000-0.034) ng/mL Liver Function 07/01/24 Range/Units 20:11 Total Bilirubin 0.4 (0.2-1.3) mg/dL AST 23 (14-36) U/L ALT 24 (6-35) U/L Alkaline Phosphatase 59 (38-126) U/L Albumin 4.2 (3.5-5.1) g/dL Impressions Chest X-Ray 07/01/24 20:25 IMPRESSION: No acute cardiopulmonary pathology. Assessment and Plan Assessment and plan (1) Chest discomfort: Code(s): R07.89 - Other chest pain Status: Acute (2) Nonischemic cardiomyopathy: Code(s): I42.8 - Other cardiomyopathies Status: Acute (3) AICD (automatic cardioverter/defibrillator) present: Code(s): Z95.810 - Presence of automatic (implantable) cardiac defibrillator Status: Acute (4) Tobacco use: Code(s): Z72.0 - Tobacco use Status: Acute (5) Cocaine use: Code(s): F14.90 - Cocaine use, unspecified, uncomplicated Status: Acute Plan The patient presented to the emergency department for evaluation of chest pressure as detailed in HPI. Labs, imaging, EKG, and all reports were personally reviewed. Initial troponin was mildly elevated but was still well within normal limits. EKG showed left bundle-branch block and atrial sense electronic ventricular pacemaker with inhibition left bundle-branch block. Device was interrogated and showed no events over the past 2 weeks. Given her cardiac history, we will consult Cardiology for their opinion. She has not smoked tobacco or used cocaine for 3 weeks and was encouraged to continue on the cessation of both of these. Blood pressures have been reasonable and will be monitored. She has not been receiving her medications since being incarcerated the last few weeks and she is unable to tell me what medication she takes at home. Will need to contact her pharmacy 1st thing in the morning so that they may be reviewed and resumed as appropriate. Findings and treatment plan were discussed with the patient. Questions were solicited and answered to satisfaction. The patient's medical management will be taken over by the hospitalist team in a.m. Quality VTE Prophylaxis VTE prophylaxis: pharmacologic ordered The patient has been admitted under observation status. Hospitalist MIPS Advance Care Plan I have confirmed that the patient's Advanced Care Plan is present, code status is documented, or surrogate decision maker is listed in patient medical record.: Yes Medication Reconciliation I have utilized all available resources to obtain, update and review the patients current medications (includes all prescriptions, OTC, herbals, cannabis, and nutritional supplements).: Yes
[2024-07-02 02:45] LABS: Troponin I < 0.012 ng/mL (0.000-0.034)
[2024-07-02] MEDS: ASPIRIN 81 MG CHEWABLE TABLET 324 MG PO (04:11)
[2024-07-02] MEDS: GABAPENTIN 300 MG CAPSULE PO (04:11)
--- NOTE | 2024-07-02 04:17 | ECG_ITS ---
Test Date: 2024-07-02 05:38:29 Measurements Intervals [place] Rate: 73 P: 146 LA: 196 QRS: 174 QRSD: 140 T: -1 QT: 452 QTc: 498 Interpretive Statements ELECTRONIC VENTRICULAR PACEMAKER ABNORMAL RHYTHM ECG Compared to ECG 07/01/2024 23:39:29 No significant changes Electronically Signed On 07-03-2024 18:56:08 CDT by Abraham Schwarz
[2024-07-02] MEDS: MORPHINE SULFATE (*CRX) 2 MG/ML INJ IV PUSH ×2 (04:21→10:49)
[2024-07-02 04:48] LABS: Alanine Aminotransferase 21 U/L (6-35); Albumin Level 3.7 g/dL (3.5-5.1); Alkaline Phosphatase 49 U/L (38-126); Anion Gap 8 mmol/L (4-12); Aspartate Amino Transferase 19 U/L (14-36); Bilirubin,Total 0.4 mg/dL (0.2-1.3); Blood Urea Nitrogen 21 mg/dL (7-17); Carbon Dioxide 22 mmol/L (22-30); Chloride 106 mmol/L (98-107); Cholesterol 199 mg/dL (0-200); Estimated CRCL calculation 61 ml/min; Estimated Glomerular Filt Rate > 60; Glucose 83 mg/dL (65-110); HDL Direct 69 mg/dL; Potassium 3.6 mmol/L (3.4-5.0); Sodium 136 mmol/L (137-145); Triglycerides 66 mg/dL (<150)
[2024-07-02 05:44] LABS: Magnesium 2.1 mg/dL (1.6-2.3)
[2024-07-02 05:46] LABS: LDL Cholesterol Direct 94 mg/dL
--- NOTE | 2024-07-02 06:00 | ECHO_ITS ---
Patient Info Name: Mary Palomino Age: 48 years : 1975 Gender: Female Ht: 61 in Wt: 130 lbs BSA: 1.60 m2 HR: 86 bpm BP: 111 / 59 mmHg Heart Rhythm: Sinus Arrhythmia, Atrial Fibrillation Technical Quality: Good Exam Date: 07/02/2024 11:15 AM Exam Location: Echo Lab Patient Status: Inpatient Admit Date: 07/01/2024 Staff Ordering Physician: Saturnino Plaza MD Sanitary [employer]kin Machine Tender: Diane Dominguez RDCS Attending Provider: Cris Parnell MD Referring Physician: Bola MONTALVO; Exam Type: CA echo dop color flow w con Study Info Indications - HF Complete two-dimensional, color flow and Doppler transthoracic echocardiogram is performed with contrast to opacify the left ventricle and to improve the deliniation of the left ventricle endocardial borders. Contrast/Agitated Saline Contrast/Ag. Saline: Definity Amount: 5.00 ml IV Access Condition: patent with no signs of infiltration Summary 1. Left ventricular chamber dimension is enlarged. 2. Left ventricular systolic function is severely reduced, estimated at 15-20%. 3. There is mildly increased left ventricular wall thickness. 4. Left ventricular septal wall motion shows global hypokinesis. 5. There is moderate to severe mitral valve regurgitation. 6. There is mild to moderate tricuspid valve regurgitation. 7. No pulmonary hypertension, estimated pulmonary arterial systolic pressure is 31 mmHg. Left Ventricle Left ventricular chamber dimension is enlarged. Left ventricular systolic function is severely reduced, estimated at 15-20%. There is mildly increased left ventricular wall thickness. Left ventricular septal wall motion shows global hypokinesis. The left ventricular diastolic function is indeterminate. Cannot rule out a left ventricular thrombus with the images obtained. Right Ventricle Right ventricular chamber dimension is normal. Right ventricular systolic function is normal. Left Atria Left atrial chamber dimension is enlarged. Right Atria Right atrial chamber dimension is normal. Aortic Valve The aortic valve is trileaflet. There is no aortic valve sclerosis. There is no aortic valve stenosis. There is no aortic valve regurgitation. Pulmonic Valve The pulmonic valve is normal. There is no pulmonic valve stenosis. There is no pulmonic regurgitation. Mitral Valve The mitral valve has normal leaflets. There is no mitral valve stenosis. There is moderate to severe mitral valve regurgitation. Tricuspid Valve The tricuspid valve leaflets are normal. There is no significant tricuspid valve stenosis. There is mild to moderate tricuspid valve regurgitation. No pulmonary hypertension, estimated pulmonary arterial systolic pressure is 31 mmHg. Pericardium/Pleural The pericardium appears normal. There is no pericardial effusion. Inferior Vena Cava Normal inferior vena cava with >50% collapse upon inspiration consistent with Empty right atrial pressure, 5 mmHg. Aorta The aortic root size at the sinus of Valsalva is normal. The prox ascending aorta size is normal. Left Ventricular Outflow Tract Name Value Normal LVOT 2D LVOT Diameter 2.04 cm LVOT Doppler LVOT Peak Gradient 2 mmHg LVOT Mean Gradient 1 mmHg LVOT VTI 14.09 cm LVOT VTI/AV VTI Ratio 0.67 LVOT Stroke Volume 46.22 ml LVOT CO 3.44 l/min LVOT CI 2.14 L/min/m2 Pulmonic Valve Name Value Normal RVOT Doppler RVOT Peak Gradient 1 mmHg PV Doppler PV Peak Gradient 3 mmHg Mitral Valve Name Value Normal MV Doppler MV Decel [place] 260.96 cm/s2 MV PHT 0 s MV Area (PHT) 3.22 cm2 4.00-5.00 MV Regurgitation Doppler MR Peak Gradient 104 mmHg MV Diastolic Function MV E Peak Velocity 61.45 cm/s MV A Peak Velocity 81.18 cm/s MV E/A 0.76 MV Decel Time 0 s MV Annular TDI MV E/e' (Septal) 16.50 <=8.00 MV E/e' (Lateral) 12.53 <=8.00 MV E/e' (Average) 14.51 Tricuspid Valve Name Value Normal TV Regurgitation Doppler TR Peak Velocity 255.08 cm/s TR Peak Gradient 26 mmHg Estimated PAP/RSVP RA Pressure 5 mmHg <=5 PA Systolic Pressure 31 mmHg <36 RV Systolic Pressure 31 mmHg <36 Aortic Valve Name Value Normal AV Doppler AV Peak Velocity 100.66 cm/s AV Peak Gradient 4 mmHg AV Mean Gradient 2 mmHg AV VTI 21.10 cm AV Area (Cont Eq VTI) 2.19 cm2 >=3.00 AV Area (Cont Eq Unruly) 2.34 cm2 AV Regurgitation 2D LVOT Area 3.28 cm2 Ventricles Name Value Normal LV Dimensions 2D/MM IVS Diastolic Thickness (2D) 1.22 cm 0.60-1.00 LVID Diastole (2D) 5.65 cm 3.80-5.20 LVIW Diastolic Thickness (2D) 1.04 cm 0.60-0.90 LVID Systole (2D) 4.25 cm 2.20-3.50 LVOT Diameter 2.04 cm LV Mass (2D Cubed) 261.48 g 67.00-162.00 LV Mass Index (2D Cubed) 0.02 g/cm2 0.00-0.01 Relative Wall Thickness (2D) 0.37 LV Fractional Shortening/Ejection Fraction 2D/MM LV Fractional Shortening (2D) 25 % 27-45 LV EF (2D Te[place]spencer) 49 % 54-74 LV Diastolic Volume (4C MOD) 177.21 ml LV EF (4C MOD) 35 % LV Diastolic Volume (2C MOD) 224.68 ml LV EF (2C MOD) 25 % LV Diastolic Volume (BP MOD) 210.23 ml 46.00-106.00 LV Diastolic Volume Index (BP MOD) 0.13 l/m2 0.03-0.06 LV Systolic Volume (BP MOD) 141.62 ml 14.00-42.00 LV Systolic Volume Index (BP MOD) 0.09 l/m2 0.01-0.02 LV EF (BP MOD) 33 % 54-74 LV Diastolic Length (4C) 8.97 cm LV Systolic Length (4C) 8.32 cm LV Stroke Volume (4C MOD) 62.30 ml Atria Name Value Normal LA Dimensions LA Volume (4C A-L) 67.15 ml LA Volume (BP A-L) 86.39 ml RA Dimensions RA Area (4C) 16.85 cm2 <=18.00 Report Signatures
[2024-07-02] MEDS: METOPROLOL TARTRATE 25 MG TABLET PO ×2 (08:38→20:37)
--- NOTE | 2024-07-02 08:58 | ECG_ITS ---
Test Date: 2024-07-02 09:09:03 Measurements Intervals [place] Rate: 83 P: 47 MD: 171 QRS: 33 QRSD: 138 T: 210 QT: 434 QTc: 510 Interpretive Statements ELECTRONIC VENTRICULAR PACEMAKER ABNORMAL RHYTHM ECG Compared to ECG 07/02/2024 05:38:29 No significant changes Electronically Signed On 07-03-2024 18:57:41 CDT by Abraham Schwarz
[2024-07-02 11:55] LABS: Amphetamine Screen Urine Negative (Negative); Barbiturate Screen Urine Negative (Negative); Benzodiazepines Screen Urine Negative (Negative); Cannabinoid Screen Urine Negative (Negative); Cocaine Screen Urine Negative (Negative); Methadone Screen Urine Negative (Negative); Opiate Screen Urine Positive (Negative); Phencyclidine Screen Urine Negative (Negative)
[2024-07-02] MEDS: PERFLUTREN LIPID MICROSPHERES 1.5 ML VIAL DILUTED TO 10 ML TOTAL VOLUME IV PUSH (12:00)
--- NOTE | 2024-07-02 12:24 | IVDEFINITY ---
Prior to administration of IV Definity the patient was educated on the risks and benefits of the imaging enhancing agent including potential adverse side effects. The patient verbalized understanding. Allergies were verified. No exclusion criteria were identified and at least one of the following inclusion criteria were met: 1) physician request, 2) patient technically difficult to image (per the [place] [employer] guidelines of two or more segments not discernable within the apical view), or 3) questionable left ventricular function. ?
[2024-07-02] MEDS: ENOXAPARIN 40 MG/0.4 ML SYRINGE SUB-Q (13:05)
[2024-07-02 17:19] LABS: Troponin I < 0.012 ng/mL (0.000-0.034)
--- NOTE | 2024-07-02 17:54 | P.PNIM_ITS ---
Progress Note: A&P Assessment and Plan (1) Chest discomfort: Code(s): R07.89 - Other chest pain Status: Acute (2) Nonischemic cardiomyopathy: Code(s): I42.8 - Other cardiomyopathies Status: Acute (3) AICD (automatic cardioverter/defibrillator) present: Code(s): Z95.810 - Presence of automatic (implantable) cardiac defibrillator Status: Acute (4) Tobacco use: Code(s): Z72.0 - Tobacco use Status: Acute (5) Cocaine use: Code(s): F14.90 - Cocaine use, unspecified, uncomplicated Status: Acute Plan Unstable angina Having chest pain at rest EKG no acute ST-T changes, LDL 94 CXR clear, troponin negative A1c, ECHO, Troponin Full dose lovenox, Aspirin, Lipitor cardiology consulted Nonischemic cardiomyopathy on AICD continue above care cardiology consulted Cocaine use patient has been in police custody for 3 weeks so no cocaine use recently counseled about cessation DVT prophylaxis on Sq Lovenox The patient presented to the emergency department for evaluation of chest pressure as detailed in HPI. Labs, imaging, EKG, and all reports were personally reviewed. Initial troponin was mildly elevated but was still well within normal limits. EKG showed left bundle-branch block and atrial sense electronic ventricular pacemaker with inhibition left bundle-branch block. Device was interrogated and showed no events over the past 2 weeks. Given her cardiac history, we will consult Cardiology for their opinion. She has not smoked tobacco or used cocaine for 3 weeks and was encouraged to continue on the cessation of both of these. Blood pressures have been reasonable and will be monitored. She has not been receiving her medications since being incarcerated the last few weeks and she is unable to tell me what medication she takes at home. Will need to contact her pharmacy 1st thing in the morning so that they may be reviewed and resumed as appropriate. Findings and treatment plan were discussed with the patient. Questions were solicited and answered to satisfaction. The patient's medical management will be taken over by the hospitalist team in a.m. Subjective Date/time seen: 07/02/24 17:54 Interval history: Complaining of chest pain Review of Systems Review of Systems: 12 systems were reviewed and are negativ e except for as per HPI. Exam Narrative: General: Well-developed, nontoxic-appearing female sitting up in bed. Weight: 59.5 kg. BMI: 24.8. HEENT: PERRL, EOMI. Sclera anicteric. Oral mucosa moist. Neck: Supple. Respiratory: Lungs are clear to auscultation bilaterally. Cardiovascular: Regular rate and rhythm with S1-S2. PM/ICD in the left anterior chest. Gastrointestinal: Abdomen is soft, nontender, and nondistended with positive bowel sounds. Skin: Warm and dry. No rash or lesions on limited exam. Extremities: No cyanosis, clubbing, or edema. Radial and pedal pulses intact. Neurological: Alert. Cranial nerves 2-12 are grossly intact. No gross focal deficits to casual conversation. Psychiatric: Pleasant and cooperative with normal mood and affect. Judgment and insight intact. Objective Data Vital Signs Vital Signs: Vital Signs - 24 hr 07/01/24 19:53 07/01/24 20:32 07/01/24 20:33 Temperature 98.1 F Pulse Rate 90 91 Respiratory Rate 18 Blood Pressure 146/80 H Pulse Oximetry 99 Oxygen Delivery Room Air Room Air 07/01/24 20:39 07/01/24 20:45 07/01/24 20:46 Temperature Pulse Rate 79 82 82 Respiratory Rate 15 16 14 Blood Pressure 101/84 Pulse Oximetry 100 99 Oxygen Delivery 07/01/24 21:00 07/01/24 21:01 07/01/24 21:15 Temperature Pulse Rate 83 77 77 Respiratory Rate 23 H 14 16 Blood Pressure 119/77 Pulse Oximetry 100 100 99 Oxygen Delivery 07/01/24 21:16 07/01/24 21:37 07/01/24 21:45 Temperature Pulse Rate 88 92 80 Respiratory Rate 12 20 16 Blood Pressure 99/72 L Pulse Oximetry 100 100 Oxygen Delivery 07/01/24 22:00 07/01/24 23:19 07/01/24 23:53 Temperature Pulse Rate 84 74 86 Respiratory Rate 19 17 17 Blood Pressure Pulse Oximetry 98 100 100 Oxygen Delivery 07/02/24 00:23 07/02/24 00:30 07/02/24 00:31 Temperature Pulse Rate 84 87 89 Respiratory Rate 18 22 H 15 Blood Pressure 143/91 H Pulse Oximetry 100 100 100 Oxygen Delivery 07/02/24 00:40 07/02/24 01:06 07/02/24 02:00 Temperature 98.1 F 97.6 F Pulse Rate 96 88 83 Respiratory Rate 18 17 Blood Pressure 143/91 H 132/83 Pulse Oximetry 98 100 Oxygen Delivery 07/02/24 03:46 07/02/24 04:00 07/02/24 06:00 Temperature 97.8 F Pulse Rate 83 86 72 Respiratory Rate 17 Blood Pressure 111/59 L Pulse Oximetry 98 Oxygen Delivery 07/02/24 08:00 07/02/24 08:00 07/02/24 08:38 Temperature 98.1 F Pulse Rate 102 H 92 85 Respiratory Rate 16 Blood Pressure 124/68 Pulse Oximetry 98 Oxygen Delivery 07/02/24 09:12 07/02/24 10:00 07/02/24 12:00 Temperature Pulse Rate 73 75 Respiratory Rate Blood Pressure Pulse Oximetry 96 Oxygen Delivery Room Air 07/02/24 12:00 07/02/24 14:00 07/02/24 16:00 Temperature 97.5 F L 98.6 F Pulse Rate 74 78 90 Respiratory Rate 16 16 Blood Pressure 100/70 134/91 H Pulse Oximetry 98 99 Oxygen Delivery Intake/Output Intake/Output: Intake & Output 06/29/24 06/30/24 07/01/24 07/02/24 23:59 23:59 23:59 23:59 Intake Total 640 Balance 640 Meds/Results Medications: Active Medications Generic Name Dose Route Start Last Admin Trade Name Freq PRN Reason Stop Dose Admin Acetaminophen 650 mg 07/02/24 03:15 Acetaminophen 325 Mg Tablet PO Q6H PRN Mild Pain (1-3) or Fever Enoxaparin Sodium 60 mg 07/02/24 23:00 Enoxaparin 60 Mg/0.6 Ml Syringe SUB-Q Q12HR [facility] Metoprolol Tartrate 25 mg 07/02/24 09:00 07/02/24 08:38 Metoprolol Tartrate 25 Mg Tablet PO 25 mg Q12HR [facility] Administration Morphine Sulfate 2 mg 07/02/24 04:09 07/02/24 10:49 Morphine Sulfate (*Crx) 2 Mg/Ml Inj IV PUSH 2 mg Q4H PRN Administration Pain Rated 7-10 Zolpidem Tartrate 10 mg 07/02/24 21:00 Zolpidem Tartrate (*Crx) 5 Mg Tablet PO [facility] Radiology Results: ITS Impressions Chest X-Ray 07/01/24 20:25 IMPRESSION: No acute cardiopulmonary pathology. Labs Labs: Laboratory Results - last 24 hr 07/01/24 07/01/24 07/01/24 20:10 20:11 22:55 WBC 9.8 RBC 5.00 Hgb 14.4 Hct 44.9 MCV 89.8 MCH 28.8 MCHC 32.1 RDW 14.2 Plt Count 367 MPV 8.8 Immature Gran % (Auto) 0.8 H Neut % (Auto) 72.8 Lymph % (Auto) 16.5 L [place] % (Auto) 8.1 Eos % (Auto) 1.1 Baso % (Auto) 0.7 Lymph # (Auto) 1.62 [place] # (Auto) 0.8 H Eos # (Auto) 0.1 Baso # (Auto) 0.1 Abs Immat Gran (auto) 0.08 H Absolute Neuts (auto) 7.1 H Absolute Nucleated RBC 0.000 Nucleated RBC % 0.0 PT 12.5 INR 0.9 APTT 22.7 Sodium 137 Potassium 4.1 Chloride 105 Carbon Dioxide 23 Anion Gap 9 BUN 25 H Creatinine 0.75 Estim Creat Clear Calc 60 Estimated GFR > 60 Glucose 94 Calcium 9.6 Magnesium Total Bilirubin 0.4 AST 23 ALT 24 Alkaline Phosphatase 59 Troponin I 0.014 < 0.012 NT-Pro-B Natriuret Pep 753 H Total Protein 7.0 Albumin 4.2 Triglycerides Cholesterol LDL Cholesterol Direct HDL Direct Lipase 326 H Urine Opiates Screen Urine Methadone Screen Ur Barbiturates Screen Ur Phencyclidine Scrn Ur Amphetamine Screen U Benzodiazepines Scrn Urine Cocaine Screen U Cannabinoids Screen 07/02/24 07/02/24 07/02/24 02:00 04:08 10:56 WBC RBC Hgb Hct MCV MCH MCHC RDW Plt Count MPV Immature Gran % (Auto) Neut % (Auto) Lymph % (Auto) [place] % (Auto) Eos % (Auto) Baso % (Auto) Lymph # (Auto) [place] # (Auto) Eos # (Auto) Baso # (Auto) Abs Immat Gran (auto) Absolute Neuts (auto) Absolute Nucleated RBC Nucleated RBC % PT INR APTT Sodium 136 L Potassium 3.6 Chloride 106 Carbon Dioxide 22 Anion Gap 8 BUN 21 H Creatinine 0.73 Estim Creat Clear Calc 61 Estimated GFR > 60 Glucose 83 Calcium 9.0 Magnesium 2.1 Total Bilirubin 0.4 AST 19 ALT 21 Alkaline Phosphatase 49 Troponin I < 0.012 NT-Pro-B Natriuret Pep Total Protein 6.0 L Albumin 3.7 Triglycerides 66 Cholesterol 199 LDL Cholesterol Direct 94 HDL Direct 69 Lipase Urine Opiates Screen Positive A Urine Methadone Screen Negative Ur Barbiturates Screen Negative Ur Phencyclidine Scrn Negative Ur Amphetamine Screen Negative U Benzodiazepines Scrn Negative Urine Cocaine Screen Negative U Cannabinoids Screen Negative 07/02/24 16:53 WBC RBC Hgb Hct MCV MCH MCHC RDW Plt Count MPV Immature Gran % (Auto) Neut % (Auto) Lymph % (Auto) [place] % (Auto) Eos % (Auto) Baso % (Auto) Lymph # (Auto) [place] # (Auto) Eos # (Auto) Baso # (Auto) Abs Immat Gran (auto) Absolute Neuts (auto) Absolute Nucleated RBC Nucleated RBC % PT INR APTT Sodium Potassium Chloride Carbon Dioxide Anion Gap BUN Creatinine Estim Creat Clear Calc Estimated GFR Glucose Calcium Magnesium Total Bilirubin AST ALT Alkaline Phosphatase Troponin I < 0.012 NT-Pro-B Natriuret Pep Total Protein Albumin Triglycerides Cholesterol LDL Cholesterol Direct HDL Direct Lipase Urine Opiates Screen Urine Methadone Screen Ur Barbiturates Screen Ur Phencyclidine Scrn Ur Amphetamine Screen U Benzodiazepines Scrn Urine Cocaine Screen U Cannabinoids Screen Quality VTE Prophylaxis VTE prophylaxis: pharmacologic ordered
--- NOTE | 2024-07-02 18:01 | PC.NURSE ---
RN spoke with dr hendrickson. Dr hendrickson stated he would not be able to see patient today. Patient and dr segal aware.
[2024-07-02] MEDS: ZOLPIDEM TARTRATE (*CRX) 5 MG TABLET 10 MG PO (20:38)
[2024-07-02] MEDS: ENOXAPARIN 60 MG/0.6 ML SYRINGE SUB-Q (22:28)
[2024-07-03] VITALS (16 sets, daily range): BP systolic 104–125; BP diastolic 61–73; PULSE 73–107; RESP 15–18; TEMP 36.4–37; O2SAT 98–100
[2024-07-03] MEDS: MORPHINE SULFATE (*CRX) 2 MG/ML INJ IV PUSH (00:29)
[2024-07-03 04:40] LABS: Basophils Absolute Auto 0.1 K/mm3 (0.0-0.1); Basophils Percent Auto 0.7 % (0.2-1.2); Eosinophils Absolute Auto 0.1 K/mm3 (0-0.3); Eosinophils Percent Auto 1.4 % (0-4.4); Hematocrit 39.1 % (37.0-47.0); Hemoglobin 12.4 g/dL (12.0-15.0); Immature Granulocyte Absolute 0.05 K/mm3 (0.00-0.031); Immature Granulocyte Percent A 0.5 % (0-0.5); Lymphocytes Absolute Auto 1.69 K/mm3 (0.9-3.2); Lymphocytes Percent Auto 17.3 % (18.3-44.2); Mean Corpuscular HGB Conc 31.7 g/dl (32-36); Mean Corpuscular Hemoglobin 29.1 pg (26-34); Mean Corpuscular Volume 91.8 fl (80-100); Mean Platelet Volume 9.3 fl (7.4-10.4); Monocytes Absolute Auto 1.1 K/mm3 (0.1-0.6); Monocytes Percent Auto 11.4 % (2.6-8.5); Neutrophils Absolute Auto 6.7 K/mm3 (1.3-6.7); Neutrophils Percent Auto 68.7 % (45.5-73.1); Platelet Count Result 364 k/mm3 (150-375); Red Blood Count 4.26 M/mm3 (4.2-5.4); Red Cell Distribution Width 14.2 % (11.5-14.5); White Blood Count 9.8 K/mm3 (4.5-10.0)
[2024-07-03 04:44] LABS: Hemoglobin A1C 5.2 % (<5.7)
[2024-07-03 04:45] LABS: Alanine Aminotransferase 21 U/L (6-35); Albumin Level 3.8 g/dL (3.5-5.1); Alkaline Phosphatase 53 U/L (38-126); Anion Gap 7 mmol/L (4-12); Aspartate Amino Transferase 23 U/L (14-36); Bilirubin,Total 0.3 mg/dL (0.2-1.3); Blood Urea Nitrogen 28 mg/dL (7-17); Calcium 8.8 mg/dL (8.4-10.2); Carbon Dioxide 24 mmol/L (22-30); Chloride 108 mmol/L (98-107); Estimated CRCL calculation 46 ml/min; Estimated Glomerular Filt Rate 60; Glucose 92 mg/dL (65-110); Potassium 3.9 mmol/L (3.4-5.0); Sodium 139 mmol/L (137-145)
[2024-07-03 04:56] LABS: Troponin I < 0.012 ng/mL (0.000-0.034)
[2024-07-03] MEDS: METOPROLOL TARTRATE 25 MG TABLET PO (07:49)
[2024-07-03] MEDS: ASPIRIN 81 MG ENTERIC TABLET PO (07:49)
[2024-07-03] MEDS: ENOXAPARIN 60 MG/0.6 ML SYRINGE SUB-Q ×2 (07:49→21:04)
[2024-07-03] MEDS: ACETAMINOPHEN 325 MG TABLET 650 MG PO ×2 (10:38→17:07)
[2024-07-03] MEDS: carvediloL 3.125 MG TABLET PO ×2 (10:38→21:04)
--- NOTE | 2024-07-03 13:03 | P.PNIM_ITS ---
Progress Note: A&P Assessment and Plan (1) Chest discomfort: Code(s): R07.89 - Other chest pain Status: Acute (2) Nonischemic cardiomyopathy: Code(s): I42.8 - Other cardiomyopathies Status: Acute (3) AICD (automatic cardioverter/defibrillator) present: Code(s): Z95.810 - Presence of automatic (implantable) cardiac defibrillator Status: Acute (4) Tobacco use: Code(s): Z72.0 - Tobacco use Status: Acute (5) Cocaine use: Code(s): F14.90 - Cocaine use, unspecified, uncomplicated Status: Acute Plan Unstable angina Having chest pain at rest EKG no acute ST-T changes, LDL 94 CXR clear, troponin negative A1c 5.2, ECHO, Troponin Continue Lovenox, Coreg and Aspirin, Lipitor cardiology cardiology following Nonischemic cardiomyopathy on AICD ECHO ef 15-20% continue above care cardiology consulted Cocaine use patient has been in police custody for 3 weeks so no cocaine use recently counseled about cessation DVT prophylaxis on Sq Lovenox Subjective Date/time seen: 07/03/24 13:03 Interval history: Still complaining of mild chest pain Review of Systems Review of Systems: 12 systems were reviewed and are negativ e except for as per HPI. Exam Narrative: General: Well-developed, nontoxic-appearing female sitting up in bed. Weight: 59.5 kg. BMI: 24.8. HEENT: PERRL, EOMI. Sclera anicteric. Oral mucosa moist. Neck: Supple. Respiratory: Lungs are clear to auscultation bilaterally. Cardiovascular: Regular rate and rhythm with S1-S2. PM/ICD in the left anterior chest. Gastrointestinal: Abdomen is soft, nontender, and nondistended with positive bowel sounds. Skin: Warm and dry. No rash or lesions on limited exam. Extremities: No cyanosis, clubbing, or edema. Radial and pedal pulses intact. Neurological: Alert. Cranial nerves 2-12 are grossly intact. No gross focal deficits to casual conversation. Psychiatric: Pleasant and cooperative with normal mood and affect. Judgment and insight intact. Objective Data Vital Signs Vital Signs: Vital Signs - 24 hr 07/02/24 14:00 07/02/24 16:00 07/02/24 16:00 Temperature 98.6 F Pulse Rate 78 90 100 Respiratory Rate 16 Blood Pressure 134/91 H Pulse Oximetry 99 Oxygen Delivery 07/02/24 18:00 07/02/24 20:00 07/02/24 20:00 Temperature 98.4 F Pulse Rate 112 H 99 94 Respiratory Rate 16 Blood Pressure 129/92 H Pulse Oximetry 99 Oxygen Delivery 07/02/24 20:18 07/02/24 20:37 07/02/24 22:00 Temperature Pulse Rate 99 89 95 Respiratory Rate 16 Blood Pressure Pulse Oximetry 99 Oxygen Delivery Room Air 07/02/24 23:55 07/03/24 00:00 07/03/24 00:00 Temperature 98.6 F Pulse Rate 75 75 89 Respiratory Rate 15 15 Blood Pressure 114/61 Pulse Oximetry 98 98 Oxygen Delivery Room Air 07/03/24 02:00 07/03/24 04:00 07/03/24 04:00 Temperature 98.1 F Pulse Rate 85 87 87 Respiratory Rate 16 16 Blood Pressure 104/65 Pulse Oximetry 98 98 Oxygen Delivery Room Air 07/03/24 04:00 07/03/24 05:20 07/03/24 07:47 Temperature 98.1 F Pulse Rate 88 107 H 88 Respiratory Rate 18 Blood Pressure 112/70 Pulse Oximetry 100 Oxygen Delivery 07/03/24 07:49 07/03/24 08:00 07/03/24 08:00 Temperature Pulse Rate 90 88 Respiratory Rate Blood Pressure Pulse Oximetry 100 Oxygen Delivery Room Air 07/03/24 10:38 07/03/24 11:49 Temperature 98.2 F Pulse Rate 82 79 Respiratory Rate 16 Blood Pressure 107/67 Pulse Oximetry 100 Oxygen Delivery Intake/Output Intake/Output: Intake & Output 06/30/24 07/01/24 07/02/24 07/03/24 23:59 23:59 23:59 23:59 Intake Total 1240 662 Output Total 200 450 Balance 1040 212 Meds/Results Medications: Active Medications Generic Name Dose Route Start Last Admin Trade Name Freq PRN Reason Stop Dose Admin Acetaminophen 650 mg 07/02/24 03:15 07/03/24 10:38 Acetaminophen 325 Mg Tablet PO 650 mg Q6H PRN Administration Mild Pain (1-3) or Fever Aspirin 81 mg 07/03/24 09:00 07/03/24 07:49 Aspirin 81 Mg Enteric Tablet PO 81 mg QAM ZULEYMA Administration Buspirone HCl 5 mg 07/03/24 09:45 Buspirone Hcl 5 Mg Tablet PO Q12HR PRN Anxiety Carvedilol 3.125 mg 07/03/24 09:10 07/03/24 10:38 Carvedilol 3.125 Mg Tablet PO 3.125 mg Q12HR ZULEYMA Administration Enoxaparin Sodium 60 mg 07/02/24 23:00 07/03/24 07:49 Enoxaparin 60 Mg/0.6 Ml Syringe SUB-Q 60 mg Q12HR ZULEYMA Administration Lisinopril 2.5 mg 07/03/24 18:00 Lisinopril 2.5 Mg Tablet PO QPM ZULEYMA Morphine Sulfate 2 mg 07/02/24 04:09 07/03/24 00:29 Morphine Sulfate (*Crx) 2 Mg/Ml Inj IV PUSH 2 mg Q4H PRN Administration Pain Rated 7-10 Zolpidem Tartrate 10 mg 07/02/24 21:00 07/02/24 20:38 Zolpidem Tartrate (*Crx) 5 Mg Tablet PO 10 mg HS ZULEYMA Administration Radiology Results: ITS Impressions Chest X-Ray 07/01/24 20:25 IMPRESSION: No acute cardiopulmonary pathology. Labs Labs: Laboratory Results - last 24 hr 07/02/24 07/03/24 16:53 04:03 WBC 9.8 RBC 4.26 Hgb 12.4 Hct 39.1 MCV 91.8 MCH 29.1 MCHC 31.7 L RDW 14.2 Plt Count 364 MPV 9.3 Immature Gran % (Auto) 0.5 Neut % (Auto) 68.7 Lymph % (Auto) 17.3 L [place] % (Auto) 11.4 H Eos % (Auto) 1.4 Baso % (Auto) 0.7 Lymph # (Auto) 1.69 [place] # (Auto) 1.1 H Eos # (Auto) 0.1 Baso # (Auto) 0.1 Abs Immat Gran (auto) 0.05 H Absolute Neuts (auto) 6.7 Absolute Nucleated RBC 0.000 Nucleated RBC % 0.0 Sodium 139 Potassium 3.9 Chloride 108 H Carbon Dioxide 24 Anion Gap 7 BUN 28 H Creatinine 0.99 Estim Creat Clear Calc 46 Estimated GFR 60 Glucose 92 Hemoglobin A1c 5.2 Calcium 8.8 Magnesium 2.0 Total Bilirubin 0.3 AST 23 ALT 21 Alkaline Phosphatase 53 Troponin I < 0.012 < 0.012 Total Protein 6.0 L Albumin 3.8 Quality VTE Prophylaxis VTE prophylaxis: pharmacologic ordered
--- NOTE | 2024-07-03 13:35 | PM.CNCAR ---
Assessment and Plan Assessment and plan (1) Nonischemic cardiomyopathy: Code(s): I42.8 - Other cardiomyopathies Status: Acute Assessment and Plan: 1. Chronic systolic heart failure NYHA class 2, stage C EF 15-20% ICD present 2. Nonischemic cardiomyopathy 3. Noncardiac chest pain 4. Anxiety 5. Cocaine use 6. Moderate to severe mitral regurgitation, functional 7. Moderate tricuspid regurgitation ECG. Paced rhythm DT. LV enlargement, EF is on the-20%, moderate to severe mitral regurgitation, [id number] tricuspid regurgitation - It is my clinical impression that her chest pain is noncardiac. What is reassuring his EKG does not show any ST or T-wave changes her troponins are negative. The pain is reproducible and pleuritic in nature -restart home on guideline directed medical therapy for heart failure -start carvedilol 3.125 mg b.i.d., lisinopril 2.5 mg OD -MRI as an outpatient blood pressure allows -SGLT2 as an outpatient he -consulted to avoid cocaine use -cardiology to sign off -follow-up with the primary technology administrator, for further optimization of guideline directed medical therapy History of Present Illness History of Present Illness Consult date/time: 07/03/24 13:35 Reason For Visit: Chest pain, Hx AICD, Cardiomyopathy w/reduced EF Narrative: This is a 48-year-old female smoker with history of nonischemic cardiomyopathy status post BiVICD, restless leg syndrome, and recreational cocaine use was admitted with atypical chest pain. Cardiology consulted for further evaluation. A chest pain is reproducible pleuritic in nature and increases on breathing and on coughing. EKG shows paced rhythm Serial Troponins have been negative TTE shows an EF of 15-20%, severe enlargement, moderate to severe MR, [id number] TR Review of Systems Review of Systems: 12 systems were reviewed and are negative except for as per HPI. [facility] Past Medical History Medical History (Updated 07/02/24 @ 03:18 by Idalia Jerome PA-C) Restless leg syndrome Cocaine use Cardiac arrest Tobacco use Clostridium difficile diarrhea Nonischemic cardiomyopathy Surgical History Surgical History (Updated 07/02/24 @ 03:11 by Idalia Jerome PA-C) History of arthroscopic knee surgery History of permanent cardiac pacemaker placement History of implantable cardioverter-defibrillator (ICD) placement Family History Family History Father Lupus (systemic lupus erythematosus) Grandparent Heart disease Other No problems noted. Social History Social History (Updated 07/02/24 @ 03:12 by Idalia Jerome PA-C) Social History: Surrogate medical decision maker: Hiwot Li, mother ([phone]). Code status: Full code. Smoking packs per day: 0.5 Smoking cigarettes per day: 10.0 Years smoked: 31 Smoking pack-years: 15.50 Smoking status: Current some day smoker Tobacco type: cigarettes Alcohol intake: current Substance use: former Substance use type: crack/cocaine Last use: 3 weeks Do You Feel Safe in your Home?: Yes Lack of Transportation: YES Lack of Food: Never True Current Housing: I Do Not Have Housing Concerned About Future Housing: No Difficulty Paying Gas/Electric Bills: No Difficulty Paying for Meds: No Currently Unemployed: No Education: Bachelor's Degree Difficulty w/ Childcare or Family Care: No Spiritual care concerns: No Meds Home Medications and Allergies Home Medications ?Medication ?Instructions ?Recorded ?Confirmed ?Type apixaban 5 mg tablet (Eliquis) 5 mg PO BID 07/02/24 07/02/24 History carvedilol 12.5 mg tablet 12.5 mg PO BID 07/02/24 07/02/24 History furosemide 20 mg tablet (Lasix) 20 mg PO DAILY 07/02/24 07/02/24 History gabapentin 300 mg capsule 300 mg PO TID 07/02/24 07/02/24 History lisinopril 2.5 mg tablet 2.5 mg PO DAILY 07/02/24 07/02/24 History metoprolol succinate 25 mg 25 mg PO DAILY 07/02/24 07/02/24 History tablet,extended release 24 hr metoprolol tartrate 25 mg tablet 25 mg PO Q12H 07/02/24 07/02/24 History spironolactone 25 mg tablet 25 mg PO DAILY 07/02/24 07/02/24 History (Aldactone) zolpidem 10 mg tablet 10 mg PO HS 07/02/24 07/02/24 History Allergies Allergy/AdvReac Type Severity Reaction Status Date / Time Sulfa (Sulfonamide Allergy Severe HIVES Verified 11/05/17 17:36 Antibiotics) Vital Signs Vital Signs - 24 hr 07/02/24 14:00 07/02/24 16:00 07/02/24 16:00 Temperature 37.0 C Pulse Rate 78 90 100 Respiratory Rate 16 Blood Pressure 134/91 H Pulse Oximetry 99 Oxygen Delivery 07/02/24 18:00 07/02/24 20:00 07/02/24 20:00 Temperature 36.9 C Pulse Rate 112 H 99 94 Respiratory Rate 16 Blood Pressure 129/92 H Pulse Oximetry 99 Oxygen Delivery 07/02/24 20:18 07/02/24 20:37 07/02/24 22:00 Temperature Pulse Rate 99 89 95 Respiratory Rate 16 Blood Pressure Pulse Oximetry 99 Oxygen Delivery Room Air 07/02/24 23:55 07/03/24 00:00 07/03/24 00:00 Temperature 37.0 C Pulse Rate 75 75 89 Respiratory Rate 15 15 Blood Pressure 114/61 Pulse Oximetry 98 98 Oxygen Delivery Room Air 07/03/24 02:00 07/03/24 04:00 07/03/24 04:00 Temperature 36.7 C Pulse Rate 85 87 87 Respiratory Rate 16 16 Blood Pressure 104/65 Pulse Oximetry 98 98 Oxygen Delivery Room Air 07/03/24 04:00 07/03/24 05:20 07/03/24 07:47 Temperature 36.7 C Pulse Rate 88 107 H 88 Respiratory Rate 18 Blood Pressure 112/70 Pulse Oximetry 100 Oxygen Delivery 07/03/24 07:49 07/03/24 08:00 07/03/24 08:00 Temperature Pulse Rate 90 88 Respiratory Rate Blood Pressure Pulse Oximetry 100 Oxygen Delivery Room Air 07/03/24 10:38 07/03/24 11:49 07/03/24 12:00 Temperature 36.8 C Pulse Rate 82 79 Respiratory Rate 16 Blood Pressure 107/67 Pulse Oximetry 100 100 Oxygen Delivery Room Air Exam Narrative: General: Well-developed, nontoxic-appearing female sitting up in bed. Weight: 59.5 kg. BMI: 24.8. HEENT: PERRL, EOMI. Sclera anicteric. Oral mucosa moist. Neck: Supple. Respiratory: Lungs are clear to auscultation bilaterally. Cardiovascular: Regular rate and rhythm with S1-S2. PM/ICD in the left anterior chest. Gastrointestinal: Abdomen is soft, nontender, and nondistended with positive bowel sounds. Skin: Warm and dry. No rash or lesions on limited exam. Extremities: No cyanosis, clubbing, or edema. Radial and pedal pulses intact. Neurological: Alert. Cranial nerves 2-12 are grossly intact. No gross focal deficits to casual conversation. Psychiatric: Pleasant and cooperative with normal mood and affect. Judgment and insight intact. Results Labs and Meds 07/03/24 04:03 07/03/24 04:03 Lab results: Cardiac Enzymes 07/02/24 07/03/24 Range/Units 16:53 04:03 AST 23 (14-36) U/L Troponin I < 0.012 < 0.012 (0.000-0.034) ng/mL CBC 07/03/24 Range/Units 04:03 WBC 9.8 (4.5-10.0) K/mm3 RBC 4.26 (4.2-5.4) M/mm3 Hgb 12.4 (12.0-15.0) g/dL Hct 39.1 (37.0-47.0) % Plt Count 364 (150-375) k/mm3 Lymph # (Auto) 1.69 (0.9-3.2) K/mm3 [place] # (Auto) 1.1 H (0.1-0.6) K/mm3 Eos # (Auto) 0.1 (0-0.3) K/mm3 Baso # (Auto) 0.1 (0.0-0.1) K/mm3 Comprehensive Metabolic Panel 07/03/24 Range/Units 04:03 Sodium 139 (137-145) mmol/L Potassium 3.9 (3.4-5.0) mmol/L Chloride 108 H (98-107) mmol/L Carbon Dioxide 24 (22-30) mmol/L BUN 28 H (7-17) mg/dL Creatinine 0.99 (0.7-1.0) mg/dL Glucose 92 (65-110) mg/dL Calcium 8.8 (8.4-10.2) mg/dL AST 23 (14-36) U/L ALT 21 (6-35) U/L Alkaline Phosphatase 53 (38-126) U/L Total Protein 6.0 L (6.3-8.2) g/dL Albumin 3.8 (3.5-5.1) g/dL Intake and Output 07/02/24 07/03/24 07/03/24 23:59 07:59 15:59 Intake Total 600 422 240 Output Total 200 450 Balance 400 -28 240 Intake: Oral 600 422 240 Output: Urine 200 450 Other: # Unmeasured Voids 5 4 Number of Bowel Movements Today 1 Patient Weight 07/03/24 23:59 Weight 60.1 kg
[2024-07-03] MEDS: lisinopriL 2.5 MG TABLET PO (17:34)
--- NOTE | 2024-07-03 17:38 | PC.NURSE ---
This patient, Mary Palomino, was received from [[facility] ] on 07/03/24 at 1739. Patient/family oriented to unit policies and routines
[2024-07-03] MEDS: ZOLPIDEM TARTRATE (*CRX) 5 MG TABLET 10 MG PO (21:04)
[2024-07-04 00:21] VITALS: PULSE 68
[2024-07-04 04:00] VITALS: PULSE 100
[2024-07-04] MEDS: ACETAMINOPHEN 325 MG TABLET 650 MG PO (04:07)
[2024-07-04 05:37] VITALS: BP 98/54; PULSE 88; RESP 16; TEMP 36.5; O2SAT 100
[2024-07-04 06:22] LABS: Basophils Absolute Auto 0.1 K/mm3 (0.0-0.1); Eosinophils Absolute Auto 0.2 K/mm3 (0-0.3); Eosinophils Percent Auto 2.1 % (0-4.4); Hematocrit 37.5 % (37.0-47.0); Immature Granulocyte Absolute 0.06 K/mm3 (0.00-0.031); Immature Granulocyte Percent A 0.7 % (0-0.5); Lymphocytes Absolute Auto 1.31 K/mm3 (0.9-3.2); Lymphocytes Percent Auto 15.8 % (18.3-44.2); Mean Corpuscular Hemoglobin 29.1 pg (26-34); Mean Corpuscular Volume 90.8 fl (80-100); Mean Platelet Volume 9.1 fl (7.4-10.4); Monocytes Percent Auto 11.6 % (2.6-8.5); Neutrophils Absolute Auto 5.7 K/mm3 (1.3-6.7); Neutrophils Percent Auto 68.8 % (45.5-73.1); Platelet Count Result 311 k/mm3 (150-375); Red Blood Count 4.13 M/mm3 (4.2-5.4); Red Cell Distribution Width 14.2 % (11.5-14.5); White Blood Count 8.3 K/mm3 (4.5-10.0)
[2024-07-04 06:27] LABS: Alanine Aminotransferase 18 U/L (6-35); Albumin Level 3.5 g/dL (3.5-5.1); Alkaline Phosphatase 52 U/L (38-126); Anion Gap 4 mmol/L (4-12); Aspartate Amino Transferase 20 U/L (14-36); Bilirubin,Total 0.6 mg/dL (0.2-1.3); Blood Urea Nitrogen 21 mg/dL (7-17); Calcium 8.7 mg/dL (8.4-10.2); Carbon Dioxide 29 mmol/L (22-30); Chloride 107 mmol/L (98-107); Estimated CRCL calculation 55 ml/min; Estimated Glomerular Filt Rate > 60; Glucose 100 mg/dL (65-110); Magnesium 2.2 mg/dL (1.6-2.3); Potassium 3.4 mmol/L (3.4-5.0); Sodium 140 mmol/L (137-145)
[2024-07-04 08:00] VITALS: PULSE 94
[2024-07-04] MEDS: ASPIRIN 81 MG ENTERIC TABLET PO (10:06)
[2024-07-04] MEDS: ENOXAPARIN 60 MG/0.6 ML SYRINGE SUB-Q (10:06)
[2024-07-04] MEDS: carvediloL 3.125 MG TABLET PO (10:06)
--- NOTE | 2024-07-04 13:39 | PM.DS ---
DS: Admitting Diagnosis Discharge Date 07/04/2024 Admitting Diagnosis Chest discomfort DS: Discharge Diagnosis Discharge Diagnosis (1) Nonischemic cardiomyopathy: Code(s): I42.8 - Other cardiomyopathies Status: Acute (2) AICD (automatic cardioverter/defibrillator) present: Code(s): Z95.810 - Presence of automatic (implantable) cardiac defibrillator Status: Acute DS: Summary Hospital Course Hospital Course: his is a 48-year-old female smoker with history of nonischemic cardiomyopathy status post AICD/pacemaker implantation, restless leg syndrome, and recreational cocaine user who presented to the emergency department via EMS from [facility] for evaluation of chest discomfort. In the ED: Vital signs on arrival include a temperature of 98.1?, blood pressure 146/80, pulse 90, respiratory rate 18, SpO2 99% on room air. Labs were significant for troponin of 0.014, proBNP 753, lipase 326, BUN 25. EKG showed atrial sense electronic ventricular pacemaker with inhibition and left bundle-branch block. No interventions were undertaken in the ED. She is being admitted in this setting for close monitoring and Cardiology consultation. Patient was initially started on full dose Lovenox, Aspirin. Cardiology was consulted noted that pain is most likely non cardiac and patient was placed on Coreg 3.125mg bid and Lisinopril 2.5mg bid. Patient will continue follow up with primary cardiology. patient counseled against drug use. F/u with PCP in 3-5 days, f/u with primary cardiology as scheduled Time Spent with Patient Time attestation: Total time spent providing and/or coordinating discharge services: DS: Data Data Completed and Pending Labs on day of discharge: Labs from last 24 hours 07/04/24 05:42 WBC 8.3 RBC 4.13 L Hgb 12.0 Hct 37.5 MCV 90.8 MCH 29.1 MCHC 32.0 RDW 14.2 Plt Count 311 MPV 9.1 Immature Gran % (Auto) 0.7 H Neut % (Auto) 68.8 Lymph % (Auto) 15.8 L Boyle % (Auto) 11.6 H Eos % (Auto) 2.1 Baso % (Auto) 1.0 Lymph # (Auto) 1.31 Boyle # (Auto) 1.0 H Eos # (Auto) 0.2 Baso # (Auto) 0.1 Abs Immat Gran (auto) 0.06 H Absolute Neuts (auto) 5.7 Absolute Nucleated RBC 0.000 Nucleated RBC % 0.0 Sodium 140 Potassium 3.4 Chloride 107 Carbon Dioxide 29 Anion Gap 4 BUN 21 H Creatinine 0.83 Estim Creat Clear Calc 55 Estimated GFR > 60 Glucose 100 Calcium 8.7 Magnesium 2.2 Total Bilirubin 0.6 AST 20 ALT 18 Alkaline Phosphatase 52 Total Protein 6.0 L Albumin 3.5 Discharge Plan Discharge Attending physician on discharge: Gigi Rodriguez Consulting providers: Abraham Schwarz Discharging Clinician: Gigi Rodriguez Anticipated Discharge Date/Time: 07/04/24 13:33 Patient Disposition: Home Activity: as tolerated Diet: as tolerated and heart healthy Patient Instructions: Antibiotic Form, Heart Failure (DC), Heart Failure (GEN) Patient Language: Stateless Stand Alone Forms: General Discharge Information Follow-up/Referrals: Abraham Schwarz MD [Physician] - (F/u with cardiology as instructed ) UNKNOWN,DOCTOR [Primary Care Provider] - (F/u with PCP in 3-5 days ) Discharge Medications: New aspirin 81 mg Tablet,Delayed Release (Dr/Ec) 81 mg PO QAM 30 Days Qty: 30 0RF carvedilol [Coreg] 3.125 mg Tablet 3.125 mg PO Q12HR 30 Days Qty: 60 1RF lisinopril 2.5 mg Tablet 2.5 mg PO QPM 30 Days Qty: 30 1RF Continued Eliquis 5 mg tablet 5 mg PO BID zolpidem 10 mg tablet 10 mg PO HS 30 Days Qty: 0 0RF Patient Comments: patient states she takes, no script at patient stated pharmacy furosemide [Lasix] 20 mg tablet 20 mg PO DAILY 30 Days Qty: 30 0RF Discontinued metoprolol tartrate 25 mg tablet 25 mg PO Q12H Patient Comments: Patient states this is what she takes, Last hosp admin was prescribed metoprolol 25 ER daily carvedilol 12.5 mg tablet 12.5 mg PO BID Patient Comments: prescription not at patient preferred pharmacy Rx Instructions: must administer with a meal/food metoprolol succinate 25 mg tablet extended release 24 hr 25 mg PO DAILY spironolactone [Aldactone] 25 mg tablet 25 mg PO DAILY Patient Comments: patient never picked up at patient stated pharmacy lisinopril 2.5 mg tablet 2.5 mg PO DAILY gabapentin 300 mg capsule 300 mg PO TID Date of admission: 07/01/24 23:41 Primary Care Provider: UNKNOWN,DOCTOR Admitting Provider: Cris Parnell Attending physician on admission: Cris Parnell Condition: Stable
== END 2024-07-04 14:12 | disposition home or self-care (01) ==
LOC: ANHED 20:55 → ANHIMU 07-02 00:38 → ANH3MEDSUR 07-04 13:34 → ANHIMU 07-06 07:29
PROVIDERS: Physician Assistant; Admitting Provider Hospitalist; Emergency Provider Student in an Organized Health Care Education/Training Program; Visit Provider Internal Medicine
DX: R07.89 Other chest pain (principal); I42.8 Other cardiomyopathies; I50.22 Chronic systolic (congestive) heart failure; Z95.810 Presence of automatic (implantable) cardiac defibrillator; F41.9 Anxiety disorder, unspecified; I08.1 Rheumatic disorders of both mitral and tricuspid valves; F17.210 Nicotine dependence, cigarettes, uncomplicated; F14.90 Cocaine use, unspecified, uncomplicated; G25.81 Restless legs syndrome; Z86.74 Personal history of sudden cardiac arrest; Z79.01 Long term (current) use of anticoagulants; Z79.899 Other long term (current) drug therapy
CPT/HCPCS: 36415; 71046; 80053; 80061; 80307; 83036; 83690; 83735; 83880; 84484; 85025; 85610; 85730; 93005; 96372; 96374; 96375; 96376; 99285; A9270; C8929; G0378; G0379; J1650; J2270; Q9957